=== PATIENT | male | born 1960 | race Caucasian/White ===

== ENCOUNTER 2017-04-20 11:28 | Emergency (ER) | payer OTHER ==
[~2017-04-20] VITALS: Ht 182.9 cm; Wt 104.0 kg
[~2017-04-20 11:28] MED LIST: AMLO10TA2 PO; ASPCH81X PO; CARV6.25 PO; FURO-85 PO; GUAN2TAB PO; HYDR-3419 PO; LISI40TA PO; LPT/40 PO; MELO7.5T5 PO; NITR0.4S UT; POTA20TA16 PO; PSYL55.43 PO; RANI150C4; SPIR50TA2 PO
[2017-04-20 11:30] VITALS: TEMP 36.7; Ht 182.9 cm; Wt 104.0 kg
[2017-04-20] MEDS ORDERED: HYDR25TA4 PO (12:12)
[2017-04-20] MEDS ORDERED: PSYL58.636 PO (12:12)
--- NOTE | 2017-04-20 12:40 | DIAGNOSTIC IMAGING REPORT ---
L SHOULDER MIN 2 VIEWS ROUTINE CLINICAL HISTORY: 56 years-old Male presenting with Fall, L shoulder and bilateral knee pain. TECHNIQUE: Internal rotation, external rotation, Grashey views of the left shoulder were obtained. COMPARISON: Chest x-ray from 2013. FINDINGS: Glenohumeral and acromioclavicular joints congruent. No acute fracture or malalignment. No advanced degenerative change. No radiographic soft tissue abnormality. IMPRESSION: No acute osseous injury of the left shoulder. Electronically signed by: Boogie Barrientos M.D. 04/20/2017 12:39 PM Dictated Date/Time: 04/20/2017 12:38 PM
--- NOTE | 2017-04-20 12:42 | DIAGNOSTIC IMAGING REPORT ---
L KNEE 3 VIEWS CLINICAL HISTORY: 56 years-old Male presenting with Fall, L shoulder and bilateral knee pain. TECHNIQUE: Frontal, lateral, and sunrise views of the left knee were obtained. COMPARISON: Correlation made to plain radiographs of the right knee from 04/20/2017. FINDINGS: Tricompartmental degenerative change with mild joint space loss, osteophytosis, and subchondral sclerosis in the medial compartment. Less significant osteophytosis in the lateral compartment. Pronounced osteophytosis in the patellofemoral compartment. Enthesophyte at the insertion of the quadriceps tendon. No acute fracture or malalignment. Trace knee joint effusion may be present. No patellar subluxation. IMPRESSION: Tricompartmental degenerative changes most severe in the medial compartment. Electronically signed by: Boogie Barrientos M.D. 04/20/2017 12:40 PM Dictated Date/Time: 04/20/2017 12:39 PM
--- NOTE | 2017-04-20 12:42 | DIAGNOSTIC IMAGING REPORT ---
THORACIC SPINE 3 VIEWS ROUTINE HISTORY: 56 years-old Male mid back pain acute mid back pain status post fall COMPARISON: Chest radiograph 11/01/2012 TECHNIQUE: 3 views of the thoracic spine. FINDINGS: No acute fracture or subluxation. Multilevel mild intervertebral disc space narrowing with moderate endplate spurring. Soft tissues are unremarkable. IMPRESSION: Mild intervertebral disc space narrowing without acute fracture or subluxation. The above report was generated using voice recognition software. It may contain grammatical, syntax or spelling errors. Electronically signed by: Isaías Hernández M.D. 04/20/2017 12:41 PM Dictated Date/Time: 04/20/2017 12:38 PM
--- NOTE | 2017-04-20 12:49 | DIAGNOSTIC IMAGING REPORT ---
R KNEE 3 VIEWS CLINICAL HISTORY: Fall, L shoulder and bilateral knee pain trauma. Pain. COMPARISON: None. DISCUSSION: Evidence for a total joint replacement. Good contact between prosthetic and underlying bone. Very small joint effusion. Prior anterior cruciate ligament repair. There is no evidence for soft tissue swelling. IMPRESSION: Small joint effusion. Otherwise negative exam post right knee arthroplasty. The above report was generated using voice recognition software. It may contain grammatical, syntax or spelling errors. Electronically signed by: Jet Leone M.D. 04/20/2017 12:48 PM Dictated Date/Time: 04/20/2017 12:45 PM
--- NOTE | 2017-04-20 13:22 | EMERGENCY ROOM VISIT NOTE ---
History First contact with patient: 11:39 Chief Complaint: FALL Stated Complaint: CHECK UP DUE TO FALL SENT BY WORK History of Present Illness The patient is a 56 year old male who presents to the Emergency Room with complaints of "checked up to a fall, so by work". The patient states that yesterday while at work around 2 PM he was on a grate, and accidentally stepped backwards, and fell catching himself with his left arm at the armpit, and struck his left leg. He now notes pain in those regions. He rates the overall pain as a 4/10. There is no numbness or tingling. He notes that there was a small scrape to the left anterior kramer of which she care for an his tetanus is up-to-date. Review of Systems A complete 6-point Review of Systems was discussed with the patient, with pertinent positives and negatives listed in the History of Present Illness. All remaining Review of Systems questions can be considered negative unless otherwise specified. Past Medical/Surgical History Medical Problems: (1) Hypertension Nos Surgical Problems: (1) H/O total knee replacement Social History Smoking Status: Former Smoker Current/Historical Medications Scheduled Amlodipine Besylate (Norvasc), 10 MG PO HS Atorvastatin (Lipitor), 40 MG PO DAILY Carvedilol (Coreg), 6.25 MG PO BID Guanfacine Hcl (Tenex), 2 MG PO HS Hydrochlorothiazide (Hctz), 25 MG PO DAILY Lisinopril (Prinivil), 40 MG PO HS Nitroglycerin (Nitrostat), 0.4 MG UT PRN Potassium Ext Rel (Klor-Con), 20 MEQ PO BID Psyllium (Metamucil Fiber), 1 DOSE PO HS Ranitidine Hcl (Ranitidine Hcl), 300 HS Physical Exam Vital Signs Date Time Temp Pulse Resp B/P (MAP) Pulse Ox O2 Delivery O2 Flow Rate FiO2 04/20/17 13:30 72 16 176/99 96 04/20/17 11:30 36.7 68 16 195/108 96 Physical Exam VITAL SIGNS - Vital signs and nursing notes were reviewed. Hypertensive. GENERAL -56-year-old male appearing his stated age who is in no acute distress. Communicates well with provider and answers questions appropriately. SKIN - small bruise noted underlying the left axilla, as well as on the left anterior kramer with small abrasion. NECK - Neck with FROM. No C-spine tenderness. Minimal tenderness noted at the superior thoracic spine. LUNGS - Chest wall symmetric without accessory muscle use, intercostals retractions, or central cyanosis. Normal vesicular breath sounds CTA B/L. No wheezes, rales, or rhonchi appreciated. CARDIAC - RRR with S1/S2. No murmur, rubs, or gallops appreciated. MUSCULOSKELETAL: There is tenderness in the left shoulder joint diffusely, as well as in left axilla. There is no tenderness to the left anterior chest. There is also tenderness to the left anterior kramer minimally. EXTREMITIES - patient does have lower extremity edema which she notes is chronic , without significant decreased range of motion. There is tenderness to deep palpation of bilateral heel knee. +5/5 strength noted in UE/LE bilaterally. He is neurovascularly intact in his extremities. Medical Decision & Procedures ER Provider Diagnostic Interpretation: L SHOULDER MIN 2 VIEWS ROUTINE CLINICAL HISTORY: 56 years-old Male presenting with Fall, L shoulder and bilateral knee pain. TECHNIQUE: Internal rotation, external rotation, Grashey views of the left shoulder were obtained. COMPARISON: Chest x-ray from 2012. FINDINGS: Glenohumeral and acromioclavicular joints congruent. No acute fracture or malalignment. No advanced degenerative change. No radiographic soft tissue abnormality. IMPRESSION: No acute osseous injury of the left shoulder. Electronically signed by: Boogie Barrientos M.D. 04/20/2017 12:39 PM Dictated Date/Time: 04/20/2017 12:38 PM R KNEE 3 VIEWS CLINICAL HISTORY: Fall, L shoulder and bilateral knee pain trauma. Pain. COMPARISON: None. DISCUSSION: Evidence for a total joint replacement. Good contact between prosthetic and underlying bone. Very small joint effusion. Prior anterior cruciate ligament repair. There is no evidence for soft tissue swelling. IMPRESSION: Small joint effusion. Otherwise negative exam post right knee arthroplasty. The above report was generated using voice recognition software. It may contain grammatical, syntax or spelling errors. Electronically signed by: Jet Leone M.D. 04/20/2017 12:48 PM Dictated Date/Time: 04/20/2017 12:45 PM L KNEE 3 VIEWS CLINICAL HISTORY: 56 years-old Male presenting with Fall, L shoulder and bilateral knee pain. TECHNIQUE: Frontal, lateral, and sunrise views of the left knee were obtained. COMPARISON: Correlation made to plain radiographs of the right knee from 04/20/2017. FINDINGS: Tricompartmental degenerative change with mild joint space loss, osteophytosis, and subchondral sclerosis in the medial compartment. Less significant osteophytosis in the lateral compartment. Pronounced osteophytosis in the patellofemoral compartment. Enthesophyte at the insertion of the quadriceps tendon. No acute fracture or malalignment. Trace knee joint effusion may be present. No patellar subluxation. IMPRESSION: Tricompartmental degenerative changes most severe in the medial compartment. Electronically signed by: Boogie Barrientos M.D. 04/20/2017 12:40 PM Dictated Date/Time: 04/20/2017 12:39 PM THORACIC SPINE 3 VIEWS ROUTINE HISTORY: 56 years-old Male mid back pain acute mid back pain status post fall COMPARISON: Chest radiograph 11/01/2012 TECHNIQUE: 3 views of the thoracic spine. FINDINGS: No acute fracture or subluxation. Multilevel mild intervertebral disc space narrowing with moderate endplate spurring. Soft tissues are unremarkable. IMPRESSION: Mild intervertebral disc space narrowing without acute fracture or subluxation. The above report was generated using voice recognition software. It may contain grammatical, syntax or spelling errors. Electronically signed by: Isaías Hernández M.D. 04/20/2017 12:41 PM Dictated Date/Time: 04/20/2017 12:38 PM Medical Decision Patient was seen and evaluated as above. He presents to us status post fall with bilateral medial knee pain, and abrasion to the left anterior kramer as well as left shoulder pain. X-rays were obtained as well as of the thoracic spine. These were essentially negative for acute emergent process. His left knee was wrapped with an Isaiah wrap, and the left shoulder was given a sling. He appears stable for outpatient follow-up. I suspect contusion of the sites but also noted that I could not rule out ligamentous injury of which she is to follow-up with orthopedics. He is to return with worsening. He notes he will use over- the-counter pain medication. The patient was educated upon management, had questions answered prior to discharge, and was discharged home in good condition. In the evaluation and treatment of this patient, the following differential diagnoses were considered: Shoulder Contusion, Shoulder Fracture, Shoulder Dislocation, Thoracic Outlet Syndrome, Adhesive Capsulitis, Rotator Cuff Tear, Proximal Clavicle Head Fracture, Apical Pneumonia, Pneumothorax, Hemothorax, or TB, Patellar Fracture, Tibial Plateau Fracture, Distal Femur Fracture, ACL Injury, PCL Injury, Collateral Ligament Injury, Pes Anserine Bursitis, Maisonneuve Fracture. Impression Primary Impression: Fall Additional Impressions: Contusion of multiple sites Shoulder pain, left Leg pain, left Knee pain, bilateral Departure Information Dispostion Home / Self-Care Condition GOOD Referrals Nabil Mena M.D. (PCP) Paul Owens M.D. Patient Instructions [facility] Additional Instructions You have been treated in the Emergency Department for Shoulder Pain and L knee pain For pain control, you can use the following [id number] medicines (if >12 yo): - Regular strength (325mg/tab) Tylenol (acetaminophen) 2 tabs every 4-6 hours as needed. Do not exceed 12 tablets in a 24 hour period. Avoid taking more than 3 grams (3000 mg) of Tylenol per day. This includes any other sources of acetaminophen you may take on a regular basis. - Regular strength (200 mg/tab) Advil (ibuprofen) 1-2 tabs every 4-6 hours as needed. Do not exceed a dose of 3200 mg per day. If this is a recent injury (<24 hrs), ice can be applied to the area of pain for the first 3 days to help decrease pain and inflammation. L knee, wrap daily. Keep the shoulder brace/sling in place until evaluated by Orthopedics. Continue to perform range of motion exercises several times per day to help prevent the development of a "frozen shoulder". Knee wrap for the knee. Return to the Emergency Department if your current symptoms worsen despite treatment course outlined above, or if you develop any of the following symptoms : intractable pain despite aforementioned treatment course or new onset of numbness or tingling of the arm or leg Problem Qualifiers
[2017-04-20 13:30] VITALS: BP 176/99; PULSE 72; O2SAT 96
== END 2017-04-20 13:44 | disposition home or self-care (01) ==
LOC: C.EDB 11:29 → C.EDD 13:44
DX: T14.8XXA Other injury of unspecified body region, initial encounter (principal); M25.512 Pain in left shoulder; M79.605 Pain in left leg; M25.569 Pain in unspecified knee; W19.XXXA Unspecified fall, initial encounter; Y92.89 Other specified places as the place of occurrence of the external cause; Y99.0 Civilian activity done for income or pay; I10 Essential (primary) hypertension; Z87.891 Personal history of nicotine dependence; Z96.659 Presence of unspecified artificial knee joint; Z79.899 Other long term (current) drug therapy

== ENCOUNTER 2019-11-16 10:14 | Inpatient (IN) ==
--- NOTE | 2019-10-31 15:38 | PAT Medication Instructions ---
Medication Instructions Date of Service October 31, 2019 Home Medications Medication Instructions Recorded potassium chloride 20 mEq 40 meq PO BID #360 tab 01/22/19 tablet,extended release carvedilol 12.5 mg tablet 12.5 mg PO BID #60 tab 06/25/19 atorvastatin 20 mg tablet 20 mg PO HS multivitamin with minerals 1 tab PO HS acetaminophen 500 mg tablet 500 mg PO DAILY PRN hydrochlorothiazide 25 mg tablet 25 mg PO QAM potassium chloride 20 mEq tablet,extended release 40 meq PO BID ibuprofen 200 mg tablet 200 mg PO Q8H PRN carvedilol 12.5 mg tablet 12.5 mg PO BID amlodipine 10 mg PO HS guanfacine 2 mg PO HS lisinopril 40 mg PO HS meloxicam 7.5 mg PO HS pantoprazole 40 mg PO HS psyllium husk [Metamucil] 1 tbsp PO HS tamsulosin 0.4 mg PO HS ASK your surgeon for instructions ibuprofen 200 mg tablet 200 mg PO Q8H PRN meloxicam 7.5 mg PO HS DO NOT take the morning of surgery hydrochlorothiazide 25 mg tablet 25 mg PO QAM potassium chloride 20 mEq tablet,extended release 40 meq PO BID Take morning of surgery With a small sip of water, OTHERWISE NOTHING TO EAT OR DRINK AFTER MIDNIGHT: acetaminophen 500 mg tablet 500 mg PO DAILY PRN (okay to take up to 4 hours prior to surgery if needed) carvedilol 12.5 mg tablet 12.5 mg PO BID Take evening before surgery atorvastatin 20 mg tablet 20 mg PO HS multivitamin with minerals 1 tab PO HS acetaminophen 500 mg tablet 500 mg PO DAILY PRN (if needed) potassium chloride 20 mEq tablet,extended release 40 meq PO BID carvedilol 12.5 mg tablet 12.5 mg PO BID amlodipine 10 mg PO HS guanfacine 2 mg PO HS lisinopril 40 mg PO HS pantoprazole 40 mg PO HS psyllium husk [Metamucil] 1 tbsp PO HS tamsulosin 0.4 mg PO HS Other Notes If you have any questions please call us at [phone] or [phone] or [phone] or [phone]
--- NOTE | 2019-11-02 14:51 | Anesthesiology Consultation ---
Date of Service November 02, 2019 Assessment & Plan (1) Encounter for pre-operative examination: - Per assessment on 11/01: Travel screen negative. No known COVID-19 positive contacts or current COVID-19 related symptoms. Surgeon arranging preop COVID testing. Awaiting results. - Check BSG AM DOS - Hx PONV: scope patch ordered for AM DOS Chart Review Chart Review: Acceptable Risk for Surgery (pending surgeon-ordered PCP clearance (scheduled 11/08; [facility])) and Patient seen in Pre Admission Testing Teaching & Discussion Pre-Anesthesia Teaching/Discussion Notes: Instructed NPO after midnight before surgery,except medications with 15 cc of water. Medication instructions provided according to the PAT guidelines. History Surgery Operation Date: 11/16/19 07:45 Proposed Procedures p L4-L5 Decompression and Fusion, Spinal Cord Monitoring - Miguelito Curtis DO Height/Weight Height: 5 ft 10 in Weight: 89.9 kg Allergies Allergy/AdvReac Type Severity Reaction Status Date / Time No Known Allergies Allergy Unverified 10/30/19 13:02 Medications Home Medications Medication Instructions Recorded Confirmed Last Taken atorvastatin 20 mg tablet 20 mg PO HS tab 09/13/18 10/30/19 Unknown multivitamin with minerals 1 tab PO HS tab 09/13/18 10/30/19 Unknown acetaminophen 500 mg tablet 500 mg PO DAILY PRN tab 12/13/18 10/30/19 Unknown hydrochlorothiazide 25 mg tablet 25 mg PO QAM tab 12/13/18 10/30/19 Unknown potassium chloride 20 mEq 40 meq PO BID #360 tab 01/22/19 10/30/19 Unknown tablet,extended release ibuprofen 200 mg tablet 200 mg PO Q8H PRN tab 03/16/19 10/30/19 Unknown carvedilol 12.5 mg tablet 12.5 mg PO BID #60 tab 06/25/19 10/30/19 Unknown amlodipine 10 mg PO HS 10/30/19 10/30/19 Unknown guanfacine 2 mg PO HS 10/30/19 10/30/19 Unknown lisinopril 40 mg PO HS 10/30/19 10/30/19 Unknown meloxicam 7.5 mg PO HS 10/30/19 10/30/19 Unknown pantoprazole 40 mg PO HS 10/30/19 10/30/19 Unknown psyllium husk [Metamucil] 1 tbsp PO HS 10/30/19 10/30/19 Unknown tamsulosin 0.4 mg PO HS 10/30/19 10/30/19 Unknown Past Medical History Medical History CAD (coronary artery disease) minor CAD per 2014 cardiac cath Chronic back pain Degenerative disc disease GERD without esophagitis controlled Hearing difficulty Hyperlipidemia Hypertension Kidney stones Melanoma hx (follows with dermatology) Osteoarthritis Type 2 diabetes mellitus diet controlled Exercise / Class Metabolic Activity II 4-5 Yardwork/Stairs/Walk up hill Past Family History Family History Mother Melanoma malignant Hypertension Father Cardiac disorder Myocardial infarction Hypertension Gallbladder disease Sister Graves disease Other No family history of adverse response to anesthesia Denies family history of Ovarian cancer Prostate cancer Breast cancer Colorectal cancer Past Surgical History Surgical History H/O cardiac catheterization ~2014- no stents H/O knee surgery right (multiple) History of colonoscopy History of lithotripsy History of tonsillectomy History of total knee arthroplasty right Hx of melanoma excision S/P epidural steroid injection S/P left knee arthroscopy S/P tympanoplasty right Past Anesthesia History No Hx of Anesthesia Complications (except PONV) and No Family Hx of Anesthesia Complications History of PONV History of PONV (per patient, when pretreatment used with benadryl then significant improvement in PONV) and Hx of Motion Sickness Social History Smoking Status: Former smoker Do You Dip or Chew Tobacco: No Smoking End Date: quit 2004, hx tobacco use x 5 years Hx Alcohol Use: No Hx Substance Use: No substance use type: does not use Review of Systems Patient denies chest pain, shortness of breath, dyspnea on exertion, joint pain, reflux, cough, wheezing, palpitations. Physical Exam Vital Signs VITALS BP 151/77 P 57 TEMP 98.2 SP02 98%RA RESP 16 PHYSICAL Full neck and c-spine range of motion. Full TMJ range of motion. TMD 3 finger breaths Mallampati Score 1 Dentition: mild chipiped upper front tooth Lungs: clear throughout to auscultation Cardiac: regular rate and rhythm, no murmurs noted Spine: normal Carotid arteries: negative bruit Extremities: no edema Testing Laboratory Results 11/02/19 15:21 PT 11.5 Seconds (9.0-12.0) 11/02/19 15: INR 1.1 (0.9-1.1) 11/02/19 15: APTT 27.3 Seconds (21.0-31.0) 11/02/19 15:21 Urine Color Yellow 11/02/19 15: Urine Appearance Clear (Clear) 11/02/19 15: Urine pH 5.0 (4.5-7.5) 11/02/19 15: Ur Specific [place] 1.024 (1.000-1.030) 11/02/19 15: Urine Protein Negative (Negative) 11/02/19 15: Urine Glucose (UA) Negative (Negative) 11/02/19: Urine Ketones Negative (Negative) 11/02/19: Urine Nitrite Negative (Negative) 11/02/19 15: Ur Leukocyte Esterase Negative (Negative) 11/02/19 15: Blood Type O Positive 11/02/19 15: Antibody Screen NEGATIVE 11/02/19 15:09/24/19 SODIUM 140 POTASSIUM 3.8 CHLORIDE 108 CO2 26 BUN 17 CREATININE 1.22 GLUCOSE 100 HGBA1C 6.0% Electrocardiogram Date: 11/02/19 Findings: + SB @ (49) Chest X-Ray Date: 11/02/19 Findings: + NAD Cardiac Catheterization Date: 08/16/14 The patient has minor coronary artery disease. The most significant area is the proximal LAD which has a 20% stenosis. Left ventricular function is normal.RECOMMENDATIONS: Medical management of the patient's coronary artery disease an outpatient.
[2019-11-02 15:48] LABS: Basophils # (auto) 0.02 K/uL (0-0.2); Basophils % (auto) 0.4 %; Eosinophils # (auto) 0.27 K/uL (0-0.5); Eosinophils % (auto) 5.7 %; Hematocrit (blood only) 38.5 % (42-52); Hemoglobin 13.5 g/dL (14.0-18.0); Immature Granulocytes # (auto) 0.01 K/uL (0.00-0.02); Immature Granulocytes % (auto) 0.2 %; Lymphocytes # (auto) 1.17 K/uL (1.2-3.4); Lymphocytes % (auto) 24.7 %; Mean Corpuscular Hgb Conc 35.1 g/dL (32-36); Mean Corpuscular Volume 88.3 fL (80-100); Mean Platelet Volume 10.2 fL (7.4-10.4); Monocytes # (auto) 0.39 K/uL (0.11-0.59); Monocytes % (auto) 8.2 %; Neutrophils # (auto) 2.87 K/uL (1.4-6.5); Neutrophils % (auto) 60.8 %; Platelet Count 175 K/uL (130-400); RDW Standard Deviation 41.8 fL (36.4-46.3); Red Blood Count 4.36 M/uL (4.7-6.1); White Blood Count 4.73 K/uL (4.8-10.8)
[2019-11-02 16:01] LABS: Appearance Urine Clear (Clear); Bilirubin Urine Negative (Negative); Blood Urine Negative (Negative); Color Urine Yellow; Glucose Urine UA Negative (Negative); Ketones Urine Negative (Negative); Leukocyte Esterase Urine Negative (Negative); Nitrite Urine Negative (Negative); Protein Urine Negative (Negative); Specific Gravity Urine 1.024 (1.000-1.030); Urobilinogen Urine Negative (Negative)
[2019-11-02 16:05] LABS: INR 1.1 (0.9-1.1); Partial Thromboplastin Time 27.3 Seconds (21.0-31.0); Prothrombin Time 11.5 Seconds (9.0-12.0)
--- NOTE | 2019-11-02 16:10 | XRay Report ---
TWO VIEW CHEST CLINICAL HISTORY: Preoperative examination. FINDINGS: PA and lateral chest radiographs are compared to study dated 11/01/2012. The cardiomediastin al silhouette is unremarkable. The lungs and pleural spaces are clear. There is no pneumothorax. The bony thorax appears intact. IMPRESSION: No active disease in the chest. ACT 112: Negative or not required by law. Electronically signed by: Mike Alonso M.D. 11/02/2019 4:09 PM
--- NOTE | 2019-11-02 17:59 | Electrocardiogram Report ---
Test Reason : Blood Pressure : / mmHG Vent. Rate : 049 BPM Atrial Rate : 049 BPM P-R Int : 168 ms QRS Dur : 114 ms QT Int : 440 ms P-R-T Axes : 048 049 053 degrees QTc Int : 397 ms Sinus bradycardia Otherwise normal ECG When compared with ECG of 01-NOV-2012 15:00, Aberrant conduction is no longer Present Confirmed by Tan Dent ([id number]) on 11/02/2019 5:58:54 PM Referred By: Miguelito Curtis Confirmed By:Richard Dent
[~2019-11-16 10:14] MED LIST changes: +ACETAMINOPHEN 500 MG TAB PO SCH; -AMLO10TA2 PO; -ASPCH81X PO; -CARV6.25 PO; +CEFAZOLIN 2000MG 2,000 MG/15 ML SYR IV SCH; +CeleBREX 200 MG CAP PO SCH; -FURO-85 PO; +GABAPENTIN 600 MG DOSE PO SCH; -GUAN2TAB PO; -HYDR-3419 PO; -LISI40TA PO; -LPT/40 PO; +LR 15ML/HR IV SCH; -MELO7.5T5 PO; -NITR0.4S UT; -POTA20TA16 PO; -PSYL55.43 PO; -RANI150C4; -SPIR50TA2 PO
--- NOTE | 2019-11-16 11:37 | History & Physical Bridge Note ---
Date of Service November 16, 2019 History & Physical Bridge Note I have examined the patient, reviewed the History & Physical and in the interval since the performance of the History & Physical I have noted the following changes of clinical significance: no changes noted
--- NOTE | 2019-11-16 11:38 | History & Physical Report ---
Date of Service November 16, 2019 Assessment & Plan (1) Neurogenic claudication due to lumbar spinal stenosis: Admission and Anticipated Discharge Date Admission Date: L4-L5 decompression fusion History of Present Illness Chief Complaint: Back and bilateral leg pain Primary Care Provider: Dominik Concepcion, This is a 59-year-old female presents with chronic persistent back and leg pain. After failing stents course of nonoperative care she is here for surgical invention. Allergies Allergy/AdvReac Type Severity Reaction Status Date / Time No Known Allergies Allergy Unverified 11/09/19 15:29 Home Medications Home Medications Medication Instructions Recorded Confirmed Type atorvastatin 20 mg tablet 20 mg PO HS tab 09/13/18 11/16/19 History multivitamin with minerals 1 tab PO HS tab 09/13/18 11/16/19 History acetaminophen 500 mg tablet 500 mg PO DAILY PRN tab 12/13/18 11/16/19 History hydrochlorothiazide 25 mg tablet 25 mg PO QAM tab 12/13/18 11/16/19 History potassium chloride 20 mEq 40 meq PO BID #360 tab 01/22/19 11/16/19 Rx tablet,extended release ibuprofen 200 mg tablet 200 mg PO Q8H PRN tab 03/16/19 11/16/19 History carvedilol 12.5 mg tablet 12.5 mg PO BID #60 tab 06/25/19 11/16/19 Rx amlodipine 10 mg PO HS 10/30/19 11/16/19 History guanfacine 2 mg PO HS 10/30/19 11/16/19 History lisinopril 40 mg PO HS 10/30/19 11/16/19 History meloxicam 7.5 mg PO HS 10/30/19 11/16/19 History pantoprazole 40 mg PO HS 10/30/19 11/16/19 History psyllium husk [Metamucil] 1 tbsp PO HS 10/30/19 11/16/19 History tamsulosin 0.4 mg PO HS 10/30/19 11/16/19 History Past Med/Surg History Medical History CAD (coronary artery disease) minor CAD per 2015 cardiac cath Chronic back pain Degenerative disc disease GERD without esophagitis controlled Hearing difficulty Hyperlipidemia Hypertension Kidney stones Melanoma hx (follows with dermatology) Osteoarthritis Type 2 diabetes mellitus diet controlled Surgical History H/O cardiac catheterization ~2015- no stents H/O knee surgery right (multiple) History of colonoscopy History of lithotripsy History of tonsillectomy History of total knee arthroplasty right Hx of melanoma excision S/P epidural steroid injection S/P left knee arthroscopy S/P tympanoplasty right Family History Mother Melanoma malignant Hypertension Father Cardiac disorder Myocardial infarction Hypertension Gallbladder disease Sister Graves disease Other No family history of adverse response to anesthesia Denies family history of Ovarian cancer Prostate cancer Breast cancer Colorectal cancer Social History Smoking Status: Former smoker Age Started Using Tobacco: 39; Age Quit Using Tobacco: 44; Smoking End Date: quit 2004, hx tobacco use x 5 years; Second Hand Exposure: No; Do You Dip or Chew Tobacco: No; Tobacco Cessation Education Requested by Patient: No Hx Alcohol Use: No Hx Substance Use: No Preferred Language: Croatian Communication Ability: Effective Visual Impairment: No Limitations Hearing Ability: Hard of Hearing Mushroom Press Operator Required: No Beliefs That Will Affect Care: Confucianism Confucianism Beliefs: Temple (LOCOMOTIVE ENGINEER) marital status: Current Living Situation: Spouse current occupational status: employed 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 Heart regular rate and rhythm. Lungs clear to auscultation. Results & Data ([facility]) Vital Signs (Past 12 Hours) Vital Signs Temp Pulse Resp BP Pulse Ox 11/16/19 10:54 36.7 C 48 L 20 168/95 H 98
[2019-11-16] MEDS ORDERED: FAMOTIDINE 20MG IV PUSH 20 MG/5 ML SYR IV ONE (11:40)
[2019-11-16] MEDS ORDERED: BUPIVACAINE/EPINEPHRINE 0.25% 1:200,000 30 ML VIAL ONE (12:06)
[2019-11-16] MEDS ORDERED: BACITRACIN INJ 50,000 UNIT VIAL ONE (12:06)
[2019-11-16] MEDS ORDERED: MIDAZOLAM HCL 1 MG/ML 2ML VIAL ONE (12:09)
[2019-11-16] MEDS ORDERED: fentaNYL citrate 100 MCG/2 ML VIAL ONE ×2 (12:09→14:43)
[2019-11-16] MEDS ORDERED: LIDOCAINE HCL 2% 2 ML VIAL/AMP(20MG/ML) INFIL ONE (12:52)
[2019-11-16] MEDS ORDERED: ROCURONIUM BROMIDE 10 MG/ML 5 ML VIAL IV ONE ×3 (12:52→14:01)
[2019-11-16] MEDS ORDERED: PROPOFOL IV EMULSION 10 MG/ML 20 ML VIAL IV ONE (12:52)
[2019-11-16] MEDS ORDERED: DEXAMETHASONE SOD INJ 4 MG/ML VIAL ONE (12:53)
[2019-11-16] MEDS ORDERED: DiphenhydrAMINE HCL 50 MG/ML VIAL ONE ×2 (12:53→12:54)
[2019-11-16] MEDS ORDERED: ONDANSETRON INJ 2 MG/ML 2 ML VIAL ONE ×2 (12:53→14:10)
[2019-11-16] MEDS ORDERED: METOCLOPRAMIDE HCL INJ 5 MG/ML 2 ML VIAL ONE (12:53)
[2019-11-16] MEDS ORDERED: HYDROmorphone INJ 2 MG/ML SYR/VIAL ONE (12:55)
[2019-11-16] MEDS ORDERED: KETOROLAC 30 MG/ML VIAL ONE (12:57)
[2019-11-16] MEDS ORDERED: SODIUM CHLORIDE 0.9% INJ 10 ML VIAL ONE (12:57)
[2019-11-16] MEDS ORDERED: ePHEDrine sulfate 50 MG/ML SYR ONE ×2 (13:09→14:09)
[2019-11-16] MEDS ORDERED: FLOSEAL HEMOSTATIC MATRIX 10ML TOP ONE (13:55)
--- NOTE | 2019-11-16 14:04 | Operative Report ---
Post Operative Report Pre & Post Diagnosis Operation Date: 11/16/19 11:30 Pre-Op Diagnosis: Neurogenic claudication due to lumbar spinal stenosis Spondylolisthesis L4-L5 Post-Op Diagnosis: Same I identified the patient and participated in the time-out.: Yes Procedure Operation Date: 11/16/19 11:30 Actual Procedures #1 lumbar decompression with bilateral medial facetectomies and foraminotomies L3-4 and L4-5. #2 posterior spinal fusion L4-5 per #3 placed posterior instrumentation L4-5. #4 interbody fusion L4-5 per #5 placement peek cage 13 x 26 mm at L4-5 per #6 placement locally harvested morselized autograft in the posterior lateral gutters. #7 placement infuse collagen sponge, master graft in the posterior gutters and ostial amp interbody space. Surgeon Miguelito Curtis, Control Chemist Cedric Sumner Estimated Blood Loss 150 Findings Consistent with Post-Op Diagnosis Specimens None Indications This is a 59-year-old male who presents with above-mentioned diagnosis after failing stents course of nonoperative care is here for the above-mentioned procedure. Description of Procedure Patient was met with identified informed consent obtained. Patient was then taken to the operative suite underwent intubation placed in the prone position the Sean table on top of the [place] frame. All bony prominences well-padded eyes inspected to ensure no external pressure placed upon them. This point the lumbar spine was prepped and draped in normal sterile fashion. Sharp dissection with the assistance of Bovie cautery was then performed down to and exposing the lamina and transverse processes of L4 and L5. From a caudal cephalad fashion complete laminectomy of L4 partial laminectomy of L3 was performed including bilateral medial facetectomies and foraminotomies addressing severe spinal stenosis. Pedicle screws were then placed in L4 and L5 bilaterally with a ssistance of fluoroscopy and proper sized lilli placed. By way of a trans-foramen approach on the left complete discectomy was performed endplates curetted to subcortical bleeding bone and a 13 x 26 mm peek cage filled with osteo-bone graft tapped in position. The rods were then locked into final position bilaterally. The transverse processes of L4 and L5 bur to subcortical bleeding bone. Infuse collagen sponge mass graft local autograft was placed in the posterior gutters. 15 round SALTY drain inserted. The incision was then closed with 1 Vicryl in the fascia 2-0 Vicryl subcutaneously and 4 Monocryl for final skin closure. Steri-Strip sterile dressings placed. Patient will continue PACU stable condition. Please note spinal cord monitoring was utilized at the procedure no changes noted. Lastly Cedric Sumner was present at the entire procedure involved the patient positioning complex portions of the surgery and final skin closure. I attest to the content of the Intraoperative Record and any orders documented therein. Any exceptions are noted below.
[2019-11-16] MEDS ORDERED: GLYCOPYRROLATE 0.2 MG/ML VIAL ONE (14:08)
[2019-11-16] MEDS ORDERED: NEOSTIGMINE METHYLSULFATE 1 MG/ML 10ML VIAL ONE (14:09)
--- NOTE | 2019-11-16 14:36 | Fluoroscopy Report ---
FL lumbar spine 2-3V CLINICAL HISTORY: L4-5 DECOMPRESSION/FUSION/INTERBODY COMPARISON STUDY: Lumbar spine 10/01/2019. FLUOROSCOPY TIME: 14 seconds. FINDINGS: 2 fluoroscopic spot images of the lumbar spine demonstrate posterior decompression and fusi on at L4-L5 with pedicle screws and rods. The hardware is intact. IMPRESSION: Fluoroscopy provided for posterior decompression and fusion at L4-L5 ACT 112: Negative or not required by law. Electronically signed by: Sudhir West M.D. 11/16/2019 2:35 PM
[2019-11-16] MEDS ORDERED: ONDANSETRON INJ 2 MG/ML 2 ML VIAL IV PRN ×2 (14:44→15:33)
[2019-11-16] MEDS ORDERED: fentaNYL citrate 100 MCG/2 ML VIAL IV PRN (14:44)
[2019-11-16] MEDS ORDERED: ATROPINE SULFATE 0.1 MG/ML 10ML SYR IV PRN (14:44)
[2019-11-16] MEDS ORDERED: HYDROmorphone INJ 1 MG/ML SYRINGE IV PRN ×2 (14:44→15:33)
[2019-11-16] MEDS ORDERED: ePHEDrine sulfate 50 MG/ML AMP IV PRN (14:44)
--- NOTE | 2019-11-16 14:48 | Anesthesiology Progress Note ---
Date of Service November 16, 2019 Anesthesia Post Procedure Vital Signs Vital Signs: Temp Pulse Resp BP Pulse Ox 11/16/19 10:54 36.7 C 48 L 20 168/95 H 98 Pain Intensity Lower Medial Back: Pain Intensity: 5 Transfer of Care Handoff Completed per policy Notes Mental Status: alert / awake / arousable and participated in evaluation Patient Amnestic to Procedure: Yes Nausea / Vomiting: adequately controlled Pain: adequately controlled and improving with treatment Airway Patency, RR, SpO2: stable & adequate BP & HR: stable & adequate Hydration State: stable & adequate Anesthetic Complications: no major complications apparent and Pt Satisfied with anesthetic care
[2019-11-16] MEDS ORDERED: HYDROmorphone INJ 0.5 MG/0.5 ML SYR IV PRN (15:33)
[2019-11-16] MEDS ORDERED: MAGNESIUM HYDROXIDE SUSP 30 ML UDC PO PRN (15:33)
[2019-11-16] MEDS ORDERED: METOCLOPRAMIDE HCL INJ 5 MG/ML 2 ML VIAL IV PRN (15:33)
[2019-11-16] MEDS ORDERED: DO NOT ADMINISTER FLU VACCINE PRN (15:33)
[2019-11-16] MEDS ORDERED: NALOXONE HCL 0.4 MG/1 ML VIAL/CARP IV PRN (15:33)
[2019-11-16] MEDS ORDERED: DO NOT ADMINISTER PNEUMOCOCCAL VACCINE PRN (15:33)
[2019-11-16] MEDS ORDERED: LORazepam 0.5 MG TAB PO PRN (15:33)
[2019-11-16] MEDS ORDERED: ACETAMINOPHEN 500 MG TAB PO PRN (15:33)
[2019-11-16] MEDS ORDERED: ACETAMINOPHEN 1,000 MG/100 ML VIAL IV PRN (15:33)
[2019-11-16] MEDS ORDERED: ALUMINUM/MAGNESIUM SUSP 30 ML UDC PO PRN (15:33)
[2019-11-16] MEDS ORDERED: PROMETHAZINE HCL 12.5 MG in SODIUM CHLORIDE 0.9% 50 ML IV PRN (15:33)
[2019-11-16] MEDS ORDERED: OXYCODONE HCL IR 5 MG TAB (IMMEDIATE RELEASE) PO PRN (15:33)
[2019-11-16] MEDS ORDERED: ONDANSETRON 4 MG OD TAB PO PRN (15:33)
[2019-11-16] MEDS ORDERED: FAMOTIDINE 20 MG TAB PO PRN (15:33)
[2019-11-16] MEDS ORDERED: SOD PHOSPHATE/SOD BIPHOSPHATE ENEMA 132 ML BTL PR PRN (15:33)
[2019-11-16] MEDS ORDERED: LORazepam 0.5 MG/1 ML VIAL IV PRN (15:33)
[2019-11-16] MEDS ORDERED: bisacodyL 10 MG SUPP PR PRN (15:33)
[2019-11-16] MEDS: LACTATED RINGER'S 1,000 ML IV SCH ×2 (15:57→22:14)
[2019-11-16] MEDS: Scopolamine CHECK PATCH PLACEMENT SCH ×2 (15:58→23:23)
--- NOTE | 2019-11-16 16:39 | Hospitalist Consultation ---
Date of Consultation November 16, 2019 Assessment & Plan (1) Neurogenic claudication due to lumbar spinal stenosis: Status post L3-L5 lumbar decompression fusion with Dr. Curtis on 11/15 Pain management, bowel regimen, and antiemetics as needed as per orthopedic surgery SALTY drain in place Doing well so far Follow CBC in the morning Of note, he has a history of postoperative nausea and is doing well so far with scopolamine patch in place (2) Elevated hemoglobin A1c: Hemoglobin A1c 6.0% in 09/2019 Needs continued counseling on weight loss and low carbohydrate diet Given that he had corticosteroids here preoperatively, will begin Accu-Cheks before meals and at bedtime and give NovoLog supplemental insulin as needed Follow with PCP (3) Hypokalemia: Likely secondary to hydrochlorothiazide use, takes 40 mEq of potassium chloride p.o. twice daily along with his hydrochlorothiazide Follow BMP in the morning Continue home potassium (4) Lower urinary tract symptoms (LUTS): No current issues Continue home tamsulosin Watch for urinary retention after Oliver catheter removed (5) Hypertension: Blood pressures are mildly elevated but could be secondary to some minor discomfort -Continue home medications of amlodipine 10 mg daily, carvedilol 12.5 mg p.o. twice daily, hydrochlorothiazide 25 mg once daily, lisinopril 40 mg daily, and guanfacine 2 mg p.o. nightly (6) Hyperlipidemia: No acute issues -Continue home atorvastatin (7) GERD without esophagitis: No acute issues -Continue Protonix daily (8) Nephrolithiasis: No current issues (9) DVT prophylaxis: SCDs Disposition-continued stay on medical/surgical floor Hospitalist service will continue to follow along History of Present Illness Reason for Consultation: Postoperative medical management Requesting Physician: Dr. Curtis Attending Physician: Miguelito Curtis, DO History of Present Illness This patient is a 59-year-old male with a history of DM 2, HTN, hyperlipidemia, GERD, nephrolithiasis, BPH, hypokalemia, osteoarthritis, and lumbar spinal stenosis with neurogenic claudication who is here after undergoing an L3-5 lumbar decompression and fusion today with Dr. Curtis. Hospitalist service is consulted for postoperative medical management. He reports he is currently feeling very well and tolerating sips of clears, no nausea or vomiting, no abdominal pain. Last bowel movement was this morning. Denies any chest pain or shortness of breath. Minimal pain in the back. He is able to move his legs and has sensation. He has no complaints or concerns. Allergies Allergy/AdvReac Type Severity Reaction Status Date / Time No Known Allergies Allergy Unverified 11/09/19 15:29 Home Medications Home Medications Medication Instructions Recorded Confirmed Type atorvastatin 20 mg tablet 20 mg PO HS tab 09/13/18 11/16/19 History multivitamin with minerals 1 tab PO HS tab 09/13/18 11/16/19 History acetaminophen 500 mg tablet 500 mg PO DAILY PRN tab 12/13/18 11/16/19 History hydrochlorothiazide 25 mg tablet 25 mg PO QAM tab 12/13/18 11/16/19 History potassium chloride 20 mEq 40 meq PO BID #360 tab 01/22/19 11/16/19 Rx tablet,extended release ibuprofen 200 mg tablet 200 mg PO Q8H PRN tab 03/16/19 11/16/19 History carvedilol 12.5 mg tablet 12.5 mg PO BID #60 tab 06/25/19 11/16/19 Rx amlodipine 10 mg PO HS 10/30/19 11/16/19 History guanfacine 2 mg PO HS 10/30/19 11/16/19 History lisinopril 40 mg PO HS 10/30/19 11/16/19 History meloxicam 7.5 mg PO HS 10/30/19 11/16/19 History pantoprazole 40 mg PO HS 10/30/19 11/16/19 History psyllium husk [Metamucil] 1 tbsp PO HS 10/30/19 11/16/19 History tamsulosin 0.4 mg PO HS 10/30/19 11/16/19 History Patient History Medical History (Updated 11/16/19 @ 16:45 by Meghan Resendiz MD) CAD (coronary artery disease) minor CAD per 2015 cardiac cath Chronic back pain Chronic radicular low back pain Degenerative disc disease GERD without esophagitis controlled Hearing difficulty Hemorrhoids Hyperlipidemia Hypertension Hypokalemia Kidney stones Knee pain, bilateral Leg pain, left Lower urinary tract symptoms (LUTS) Melanoma hx (follows with dermatology) Nephrolithiasis Osteoarthritis Rupture of anterior cruciate ligament of left knee Type 2 diabetes mellitus diet controlled Surgical History H/O cardiac catheterization ~2015- no stents H/O knee surgery right (multiple) History of colonoscopy History of lithotripsy History of tonsillectomy History of total knee arthroplasty right Hx of melanoma excision S/P epidural steroid injection S/P left knee arthroscopy S/P tympanoplasty right Family History Mother Melanoma malignant Hypertension Father Cardiac disorder Myocardial infarction Hypertension Gallbladder disease Sister Graves disease Other No family history of adverse response to anesthesia Denies family history of Ovarian cancer Prostate cancer Breast cancer Colorectal cancer Social History Smoking Status: Former smoker Age Started Using Tobacco: 39; Age Quit Using Tobacco: 44; Smoking End Date: quit 2004, hx tobacco use x 5 years; Second Hand Exposure: No; Do You Dip or Chew Tobacco: No; Tobacco Cessation Education Requested by Patient: No Hx Alcohol Use: No Hx Substance Use: No Preferred Language: Slovenian Communication Ability: Effective Visual Impairment: No Limitations Hearing Ability: Hard of Hearing Checker Required: No Beliefs That Will Affect Care: Holiness Holiness Beliefs: Denominational ([facility]) marital status: Current Living Situation: Spouse current occupational status: employed 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 Other Information That Helps Us Care for You: No Feels Safe at Home: Yes Safety Concerns: Feels Safe At This Time Childhood Exposure to Second-Hand Smoke: No Dental Care, Regularly: Yes Physical Activity Frequency: Does not Exercise Seatbelt Use: always Assistive Devices: Walker Review of Systems Review of Systems: All systems reviewed & are unremarkable except as noted in HPI & below Physical Exam Constitutional: WD/WN, vitals as above Eyes: + anicteric sclerae ENMT: Ears: no external ear abnormality Nose: no external nose abnormality Neck: trachea midline, no thyromegaly Respiratory: normal respiratory effort, lungs clear to auscultation Cardiovascular: RRR, no murmur, no edema Chest (Breasts): Chest: normal inspection of chest Gastrointestinal (Abdomen): normal bowel sounds, soft, nontender, no hepatosplenomegaly Musculoskeletal: Extremities: + extremities abnormal to inspection (Right knee with 2+ joint effusion, no erythema), no cyanosis and no clubbing Skin: no rashes, warm and dry (Dressing over lower back is clean dry and intact) Neurologic: moves all extremities and awake; no focal motor deficits Psychiatric: A+Ox3, euthymic affect Lymphatic: no lymphedema Results & Data Results & Data ([facility]) Vital Signs (Past 12 Hours) Vital Signs Temp Pulse Pulse Pulse Resp BP BP 11/16/19 16:33 57 L 16 155/78 H 11/16/19 15:59 36.5 C 49 L 18 162/79 H 11/16/19 15:30 36.4 C L 58 L 16 162/83 H 11/16/19 15:15 36.4 C L 48 L 12 146/69 H 11/16/19 15:05 50 L 12 140/83 11/16/19 14:55 47 L 12 152/83 H 11/16/19 14:45 52 L 12 132/87 11/16/19 14:36 36.2 C L 66 10 L 153/86 H 11/16/19 10:54 36.7 C 48 L 20 168/95 H Pulse Ox 11/16/19 16:33 100 11/16/19 15:59 100 11/16/19 15:30 98 11/16/19 15:15 97 11/16/19 15:05 95 11/16/19 14:55 100 11/16/19 14:45 99 11/16/19 14:36 100 11/16/19 10:54 98 Laboratory Results 11/16/19 11/16/19 Range/Units 14:43 10:57 POC Glucose 123 H 123 H (70-99) mg/dl Preoperative laboratory values were reviewed which revealed mildly low hemoglobin at 13.5 MCV normal ECG Additional Comments: Preoperative ECG reviewed and was normal. PG Care Time/CCT Total # of Minutes Spent Total Time Spent with Patient: Total time spent is greater than 50% in coordination of care (as documented) at patient's floor/unit and/or counseling patient: Coding Level of Care Code 85705 Inpt Consult Level 3 Diagnoses Neurogenic claudication due to lumbar spinal stenosis M48.062 Elevated hemoglobin A1c R73.09 Hypokalemia E87.6 Lower urinary tract symptoms (LUTS) R39.9 Hypertension I10 Hyperlipidemia E78.5 GERD without esophagitis K21.9 Nephrolithiasis N20.0 DVT prophylaxis Z29.9
[2019-11-16] MEDS ORDERED: DEXTROSE 50% 50 ML SYRINGE IV PRN (17:00)
[2019-11-16] MEDS ORDERED: GLUCOSE 40% GEL 15 GM TUBE PO PRN (17:00)
[2019-11-16] MEDS ORDERED: CARBOHYDRATES FOR HYPOGLYCEMIA PO PRN (17:00)
[2019-11-16] MEDS ORDERED: GLUCAGON FOR INJ 1 MG VIAL SQ PRN (17:00)
[2019-11-16] MEDS ORDERED: GLUCOSE 10 TABS/TUBE PO PRN (17:00)
[2019-11-16] MEDS: INSULIN ASPART 100 UNITS/ML 3 ML PEN SC SCH ×2 (17:57→22:06)
[2019-11-16] MEDS: KETOROLAC 30 MG/ML VIAL IV SCH ×2 (18:04→23:23)
[2019-11-16] MEDS: CEFAZOLIN 2000MG 2,000 MG/15 ML SYR IV SCH (20:38)
[2019-11-16] MEDS: AMLODIPINE BESYLATE 5 MG TAB PO SCH (22:00)
[2019-11-16] MEDS: carvediloL 12.5 MG TAB PO SCH (22:00)
[2019-11-16] MEDS: lisinopriL 40 MG TAB PO SCH (22:00)
[2019-11-16] MEDS: PSYLLIUM 58.6% POWDER PACKET PO SCH (22:00)
[2019-11-16] MEDS: MULTIVITAMIN TAB PO SCH (22:00)
[2019-11-16] MEDS: ATORVASTATIN 20 MG TAB PO SCH (22:00)
[2019-11-16] MEDS: PANTOprazole 40 MG TAB PO SCH (22:01)
[2019-11-16] MEDS: DOCUSATE SODIUM/SENNA 50/8.6MG TAB PO SCH (22:01)
[2019-11-16] MEDS: POTASSIUM CHLORIDE 20 MEQ TABCR PO SCH (22:01)
[2019-11-16] MEDS: TAMSULOSIN HCL 0.4 MG CAP PO SCH (22:01)
[2019-11-16] MEDS: GUANFACINE HCL 1 MG TAB PO SCH (22:03)
[2019-11-16] MEDS ORDERED: COUGH DROP (SUGAR FREE) LOZ 24 LOZ/1 BOX BUCCAL ONE (23:48)
[2019-11-17] MEDS: CEFAZOLIN 2000MG 2,000 MG/15 ML SYR IV SCH (05:00)
[2019-11-17] MEDS: POLYETHYLENE (MIRALAX) 17 GM PACK PO SCH ×3 (05:01→18:05)
[2019-11-17] MEDS: KETOROLAC 30 MG/ML VIAL IV SCH ×2 (05:01→12:57)
[2019-11-17] MEDS: LACTATED RINGER'S 1,000 ML IV SCH (05:25)
[2019-11-17 06:39] LABS: Hematocrit (blood only) 34.8 % (42-52); Hemoglobin 12.4 g/dL (14.0-18.0); Immature Granulocytes # (auto) 0.02 K/uL (0.00-0.02); Immature Granulocytes % (auto) 0.2 %; Lymphocytes # (auto) 0.82 K/uL (1.2-3.4); Lymphocytes % (auto) 8.4 %; Mean Corpuscular Hemoglobin 31.6 pg (25-34); Mean Corpuscular Hgb Conc 35.6 g/dL (32-36); Mean Corpuscular Volume 88.8 fL (80-100); Mean Platelet Volume 10.3 fL (7.4-10.4); Monocytes # (auto) 0.71 K/uL (0.11-0.59); Monocytes % (auto) 7.3 %; Neutrophils # (auto) 8.23 K/uL (1.4-6.5); Neutrophils % (auto) 84.1 %; Platelet Count 159 K/uL (130-400); RDW Coefficient of Variation 13.1 % (11.5-14.5); RDW Standard Deviation 42.3 fL (36.4-46.3); Red Blood Count 3.92 M/uL (4.7-6.1); White Blood Count 9.78 K/uL (4.8-10.8)
[2019-11-17 07:09] LABS: BUN Creatinine Ratio 15.4 (10-20); Calcium 8.6 mg/dl (8.5-10.1); Est GFR (African American) 97.6; Est GFR (Non-African American) 84.2; Potassium 3.8 mmol/L (3.5-5.1)
[2019-11-17] MEDS: INSULIN ASPART 100 UNITS/ML 3 ML PEN SC SCH ×4 (08:51→21:26)
[2019-11-17] MEDS: Scopolamine CHECK PATCH PLACEMENT SCH ×3 (08:53→23:16)
[2019-11-17] MEDS: POTASSIUM CHLORIDE 20 MEQ TABCR PO SCH ×2 (08:54→21:44)
[2019-11-17] MEDS: carvediloL 12.5 MG TAB PO SCH ×2 (08:54→21:35)
[2019-11-17] MEDS: hydroCHLOROthiazide 25 MG TAB PO SCH (08:54)
--- NOTE | 2019-11-17 09:05 | Hospitalist Progress Note ---
Date of Service November 17, 2019 Assessment & Plan (1) Neurogenic claudication due to lumbar spinal stenosis: * s/p L3-L5 lumbar decompression fusion with Dr. Curtis on 11/15. EBL 150cc. SALTY output 290cc. Pre-op h/h 13.5/38.5 * Pain management/bowel regimen/PT/OT per ortho * SALTY in place -- management per primary * CBC with h/h 12.4/34.8 -- acute blood loss anemia following back surgery, expected drop * Significant control of any nausea with scop patch -- continued -- did give some dry mouth but controlled with Biotin spray * CBC in AM (2) Elevated hemoglobin A1c: * Hemoglobin A1c 6.0% in 09/2019 --> has been doing well with diet as far as management but hopeful for better exercise tolerance now that back is fixed --> plans on walking halls already as he is feeling so well * Continue low carb diet * Accuchecks with almost no insulin being required -- 3 total units * Rec to follow up with PCP * Continue to monitor (3) Hypokalemia: * History of -- secondary to hydrochlorothiazide use and takes 40 mEq of potassium chloride p.o. twice daily along with his hydrochlorothiazide * Continue home potassium * K stable 3.8 * BMP in AM (4) Lower urinary tract symptoms (LUTS): * No current issues * Continue home tamsulosin * UO acceptable since removal of Harp -- 0.91ml/kg/hr (5) Hypertension: * Controlled * BP 124/63 * Continue home amlodipine 10 mg daily, carvedilol 12.5 mg p.o. twice daily, hydrochlorothiazide 25 mg once daily, lisinopril 40 mg daily, and guanfacine 2 mg p.o. nightly (6) Hyperlipidemia: * No acute issues * Continue home atorvastatin (7) GERD without esophagitis: * No acute issues * Continue Protonix daily (8) Nephrolithiasis: * No current issues (9) Acute blood loss anemia: As above with expected blood loss. follow h/h (10) DVT prophylaxis: * SCDs Thank you for allowing hospitalist service to participate in the care of Mr. John. Hospitalist service will sign off but will chart check peripherally. Please call with any questions/concerns. Admission and Anticipated Discharge Date Admission Date: November 16, 2019 Subjective Patient seen this morning. About to work with therapy. Has been able to ambulate to bathroom without walker at times. Feeling markedly improved with regards to numbness and tingling in lower extremities. Already with R knee replacement and states left knee ACL and states Dr. Owens stated he would need this replaced in the future but he wanted to address back first as he has no short term disability at work and time off absolved by him. Eating/drinking without difficulty. Passing gas but no BM as of yet. No abdominal pain. Did get something last night and miralax this morning. Has a little bit of a sore throat but controlled with the biotin spray and improving since airway from surgery. Did have a little chest congestion and cou ghed up some sputum but swallowed and not able to identify if discolored. States he has been using incentive spirometer and has felt much clearer since that time. Discussed that if able to produce sputum to make staff away. No shortness of breath, chest pain, fever, or chills reported. Only pain reported as incisional and is quite pleased with results, well controlled with only tramadol and has not required opioid for management. States he will likely be in the hospital until at least tomorrow, but likely until Tuesday. Review of Systems Review of Systems: All systems reviewed & are unremarkable except as noted in HPI & below Physical Exam Constitutional: WD/WN, vitals as above Eyes: + anicteric sclerae ENMT: Ears: no external ear abnormality Nose: no external nose abnormality Neck: trachea midline, no thyromegaly Respiratory: normal respiratory effort, lungs clear to auscultation Cardiovascular: RRR, no murmur, no edema Chest (Breasts): Chest: normal inspection of chest Gastrointestinal (Abdomen): normal bowel sounds, soft, nontender, no hepatosplenomegaly Musculoskeletal: Extremities: + extremities abnormal to inspection (Right knee with 1+ joint effusion, no erythema. ), no cyanosis and no clubbing Skin: no rashes, warm and dry (Dressing to low back with some bloody drainage noted but not through dressi) SALTY with bloody drainage Neurologic: moves all extremities and awake; no focal motor deficits Psychiatric: A+Ox3, euthymic affect Lymphatic: no lymphedema Results & Data Results & Data ([facility]) Vital Signs (Past 12 Hours) Vital Signs Temp Pulse Pulse Resp BP BP Pulse Ox 11/17/19 07:47 36.8 C 72 16 124/63 95 11/17/19 03:43 36.6 C 47 L 16 134/64 98 11/16/19 23:25 36.9 C 53 L 18 154/80 H 95 11/16/19 21:54 65 160/86 H Laboratory Results 11/17/19 11/17/19 11/17/19 Range/Units 08:25 05:52 05:52 WBC 9.78 (4.8-10.8) K/uL RBC 3.92 L (4.7-6.1) M/uL Hgb 12.4 L (14.0-18.0) g/dL Hct 34.8 L (42-52) % MCV 88.8 (80-100) fL MCH 31.6 (25-34) pg MCHC 35.6 (32-36) g/dL RDW Std Deviation 42.3 (36.4-46.3) fL RDW Coeff of Chen[place] 13.1 (11.5-14.5) % Plt Count 159 (130-400) K/uL MPV 10.3 (7.4-10.4) fL Immature Gran % (Auto) 0.2 % Neut % (Auto) 84.1 % Lymph % (Auto) 8.4 % [place] % (Auto) 7.3 % Eos % (Auto) 0.0 % Baso % (Auto) 0.0 % Neut # (Auto) 8.23 H (1.4-6.5) K/uL Lymph # (Auto) 0.82 L (1.2-3.4) K/uL [place] # (Auto) 0.71 H (0.11-0.59) K/uL Eos # (Auto) 0.00 (0-0.5) K/uL Baso # (Auto) 0.00 (0-0.2) K/uL Immature Gran # (Auto) 0.02 (0.00-0.02) K/uL Sodium 142 (136-145) mmol/L Potassium 3.8 (3.5-5.1) mmol/L Chloride 110 H (98-107) mmol/L Carbon Dioxide 24 (21-32) mmol/L Anion Gap 8.0 (3-11) BUN 15 (7-18) mg/dl Creatinine 0.99 (0.6-1.4) mg/dl Est Cr Clr Drug Dosing 85.0 ml/min Est GFR ( Amer) 97.6 Est GFR (Non-Af Amer) 84.2 BUN/Creatinine Ratio 15.4 (10-20) Glucose 162 H (70-99) mg/dl POC Glucose 133 H (70-99) mg/dl Calcium 8.6 (8.5-10.1) mg/dl 11/16/19 11/16/19 11/16/19 Range/Units 20:20 17:03 14:43 WBC (4.8-10.8) K/uL RBC (4.7-6.1) M/uL Hgb (14.0-18.0) g/dL Hct (42-52) % MCV (80-100) fL MCH (25-34) pg MCHC (32-36) g/dL RDW Std Deviation (36.4-46.3) fL RDW Coeff of Chencho (11.5-14.5) % Plt Count (130-400) K/uL MPV (7.4-10.4) fL Immature Gran % (Auto) % Neut % (Auto) % Lymph % (Auto) % [place] % (Auto) % Eos % (Auto) % Baso % (Auto) % Neut # (Auto) (1.4-6.5) K/uL Lymph # (Auto) (1.2-3.4) K/uL [place] # (Auto) (0.11-0.59) K/uL Eos # (Auto) (0-0.5) K/uL Baso # (Auto) (0-0.2) K/uL Immature Gran # (Auto) (0.00-0.02) K/uL Sodium (136-145) mmol/L Potassium (3.5-5.1) mmol/L Chloride (98-107) mmol/L Carbon Dioxide (21-32) mmol/L Anion Gap (3-11) BUN (7-18) mg/dl Creatinine (0.6-1.4) mg/dl Est Cr Clr Drug Dosing ml/min Est GFR ( Amer) Est GFR (Non-Af Amer) BUN/Creatinine Ratio (10-20) Glucose (70-99) mg/dl POC Glucose 184 H 162 H 123 H (70-99) mg/dl Calcium (8.5-10.1) mg/dl 11/16/19 Range/Units 10:57 WBC (4.8-10.8) K/uL RBC (4.7-6.1) M/uL Hgb (14.0-18.0) g/dL Hct (42-52) % MCV (80-100) fL MCH (25-34) pg MCHC (32-36) g/dL RDW Std Deviation (36.4-46.3) fL RDW Coeff of Chencho (11.5-14.5) % Plt Count (130-400) K/uL MPV (7.4-10.4) fL Immature Gran % (Auto) % Neut % (Auto) % Lymph % (Auto) % [place] % (Auto) % Eos % (Auto) % Baso % (Auto) % Neut # (Auto) (1.4-6.5) K/uL Lymph # (Auto) (1.2-3.4) K/uL [place] # (Auto) (0.11-0.59) K/uL Eos # (Auto) (0-0.5) K/uL Baso # (Auto) (0-0.2) K/uL Immature Gran # (Auto) (0.00-0.02) K/uL Sodium (136-145) mmol/L Potassium (3.5-5.1) mmol/L Chloride (98-107) mmol/L Carbon Dioxide (21-32) mmol/L Anion Gap (3-11) BUN (7-18) mg/dl Creatinine (0.6-1.4) mg/dl Est Cr Clr Drug Dosing ml/min Est GFR ( Amer) Est GFR (Non-Af Amer) BUN/Creatinine Ratio (10-20) Glucose (70-99) mg/dl POC Glucose 123 H (70-99) mg/dl Calcium (8.5-10.1) mg/dl PG Care Time/CCT Total # of Minutes Spent Total Time Spent with Patient: Total time spent is greater than 50% in coordination of care (as documented) at patient's floor/unit and/or counseling patient: Coding Level of Care Code 49870 Subseq Hosp Care Lvl 2 Diagnoses Neurogenic claudication due to lumbar spinal stenosis M48.062 Elevated hemoglobin A1c R73.09 Hypokalemia E87.6 Lower urinary tract symptoms (LUTS) R39.9 Hypertension I10 Hyperlipidemia E78.5 GERD without esophagitis K21.9 Nephrolithiasis N20.0 Acute blood loss anemia D62 DVT prophylaxis Z29.9
--- NOTE | 2019-11-17 10:48 | Orthopedic Progress Note ---
Date of Service November 17, 2019 Assessment & Plan (1) Neurogenic claudication due to lumbar spinal stenosis: Admission and Anticipated Discharge Date Admission Date: November 16, 2019 This time we will continue physical therapy monitor his SALTY operatively discharge over the next day or so. Subjective Back pain controlled leg pain markedly improved Physical Exam Physical Exam: Patient is ambulating well X strength testing. Results & Data ([facility]) Vital Signs (Past 12 Hours) Vital Signs Temp Pulse Pulse Resp BP BP Pulse Ox 11/17/19 07:47 36.8 C 72 16 124/63 95 11/17/19 03:43 36.6 C 47 L 16 134/64 98 11/16/19 23:25 36.9 C 53 L 18 154/80 H 95
[2019-11-17] MEDS ORDERED: Nursing to Pharmacy Communication SCH (18:45)
[2019-11-17] MEDS: PSYLLIUM 58.6% POWDER PACKET PO SCH (21:43)
[2019-11-17] MEDS: ATORVASTATIN 20 MG TAB PO SCH (21:44)
[2019-11-17] MEDS: PANTOprazole 40 MG TAB PO SCH (21:44)
[2019-11-17] MEDS: TAMSULOSIN HCL 0.4 MG CAP PO SCH (21:44)
[2019-11-17] MEDS: MULTIVITAMIN TAB PO SCH (21:44)
[2019-11-17] MEDS: DOCUSATE SODIUM/SENNA 50/8.6MG TAB PO SCH (21:44)
[2019-11-17] MEDS: GUANFACINE HCL 1 MG TAB PO SCH (22:10)
[2019-11-17] MEDS: AMLODIPINE BESYLATE 5 MG TAB PO SCH (22:10)
[2019-11-17] MEDS: lisinopriL 40 MG TAB PO SCH (22:10)
[2019-11-17] MEDS: TRAMADOL HCL 50 MG TABLET PO PRN (22:18)
[2019-11-18 06:24] LABS: Hematocrit (blood only) 34.9 % (42-52); Hemoglobin 11.9 g/dL (14.0-18.0); Mean Corpuscular Hemoglobin 30.9 pg (25-34); Mean Corpuscular Hgb Conc 34.1 g/dL (32-36); Mean Corpuscular Volume 90.6 fL (80-100); Mean Platelet Volume 10.4 fL (7.4-10.4); Platelet Count 146 K/uL (130-400); RDW Coefficient of Variation 13.3 % (11.5-14.5); RDW Standard Deviation 43.9 fL (36.4-46.3); Red Blood Count 3.85 M/uL (4.7-6.1)
[2019-11-18 06:52] LABS: BUN Creatinine Ratio 22.6 (10-20); Calcium 8.6 mg/dl (8.5-10.1); Creatinine Clr Calc Pharmacy 103.9 ml/min; Est GFR (African American) 114.3; Est GFR (Non-African American) 98.7; Potassium 3.6 mmol/L (3.5-5.1)
[2019-11-18] MEDS: TRAMADOL HCL 50 MG TABLET PO PRN (07:42)
[2019-11-18] MEDS: carvediloL 12.5 MG TAB PO SCH (08:19)
[2019-11-18] MEDS: hydroCHLOROthiazide 25 MG TAB PO SCH (08:23)
[2019-11-18] MEDS: POTASSIUM CHLORIDE 20 MEQ TABCR PO SCH (08:24)
[2019-11-18] MEDS: INSULIN ASPART 100 UNITS/ML 3 ML PEN SC SCH (08:25)
[2019-11-18] MEDS: Scopolamine CHECK PATCH PLACEMENT SCH (08:25)
--- NOTE | 2019-11-18 08:53 | Discharge Summary ---
Date of Service November 18, 2019 Admission HPI Per Admitting Provider This is a 59-year-old female presents with chronic persistent back and leg pain. After failing stents course of nonoperative care she is here for surgical invention. Admission Exam (Per Admitting) Constitutional WD/WN, vitals as above Eyes normal visual morgan by confrontation ENMT external ear and nose normal, oropharynx normal Neck normal visual inspection Respiratory normal respiratory effort Cardiovascular Vessels: dorsalis pedis pulses present Extremities: normal capillary refill Chest (Breasts) Chest: normal inspection of chest Gastrointestinal (Abdomen) Inspection/Auscultation: abdomen normal to inspection Musculoskeletal Extremities: extremities normal to inspection and strength 5/5 throughout Gait: normal gait Skin no rashes, warm and dry Neurologic normal touch/pain/proprioception and moves all extremities Psychiatric A+Ox3, euthymic affect Discharge Data Consultations 11/16/19 15:33 Consult Case Management - Discharge Planning Routine Consult Hospitalist Routine Procedures Performed Operation Date: 11/16/19 11:30 Actual Procedures p L4-L5 Decompression and Fusion, Spinal Cord Monitoring(Not Applicable) - Miguelito Curtis DO Hospital Course (1) Neurogenic claudication due to lumbar spinal stenosis: Patient is being discharged home on postoperative day 2. Patient has had an uneventful hospital course. Lab values have been stable. He is ambulating over 800 feet in physical therapy. Radicular leg pain that he had present preoperatively has resolved. Back pain is controlled. Lab values are stable. He has had a bowel movement. Discharge Instructions ACTIVITY RECOMMENDATIONS: SELF CARE INSTRUCTIONS AFTER THORACIC/LUMBAR FUSIONS 1. You may walk to your tolerance. It is good exercise for your legs and back. Expect some back and intermittent leg aches and pains. 2. You may perform "counter-top" level activities (make a sandwich, jr with a project, etc.). 3. No bending or lifting of more than 10 pounds or back twisting of any nature (roll like a log when turning in bed). 4. You may ride in a car for 20-30 minutes at a time. No driving until after your first visit with your doctor. 5. Frequent changes of position and restricting sitting to 30 minutes at a time will help limit the amount of back spasms and stiffness you may experience. 6. You may discontinue the use of ambulatory aids (cane, crutches, etc.) once your strength and confidence allow. 7. You may chocolate finisher operator the shower and let water strike your incision when you arrive home at least once daily. Do not take a tub bath, sit in a hot tub or go into a swimming pool until after your first recheck in the office. SPECIAL CARE INSTRUCTIONS: VERY IMPORTANT TO READ AND REVIEW A. Your surgical incision has been closed with a cosmetic suture under the skin that will dissolve in about 6 weeks. In 14 days, you can use a pair of clean scissors and cut the suture that is left outside of the skin at the ends of your incision. 1. The small skin tapes can be removed 7 days after surgery if they have not fallen off by that point. 2. You may keep the wound open to air as much as possible to promote healing after post-op day number 5 unless told otherwise by your doctor. 3. If you think the wound looks like it is becoming infected (redness or worsening drainage) and/or you are experiencing fever, chill or worsening back pain and muscle spasms, contact the office so that we may evaluate you as soon as possible. B. Complications are uncommon, but please contact us if you have any signs or symptoms of: 1. wound infection (fever higher than 102.5 degrees F, redness, separation of wound, drainage, or increasing pain from the incision) 2. blood clots in legs (pain, swelling, redness and warmth in legs) 3. urinary tract infection (fever higher than 102.5 degrees F, burning upon urination or increased frequency of urination) 4. nerve problems (inability to walk on your toes or heels, numbness, loss of bowel or bladder control) 5. any other symptoms that concern you C. Please call the office at if you have any concerns or questions about your operation or recovery. D. No smoking! Smoking drastically decreases the chance of a solid fusion. E. Do not take any anti-inflammatory medications (Indocin, Advil, Motrin, Aspirin, Naprosyn, etc.) as these may inhibit the chance of a solid fusion. Tylenol is okay to take for pain. MANAGING PAIN AFTER SPINAL SURGERY 1. Narcotic medication is intended for short-term use and will be provided for surgical pain. Surgical pain usually lasts for a period of 4-6 weeks. Narcotic medication includes Percocet, Vicodin, Darvocet, Tylenol #3 or Lortab. 2. Longer-term pain is more appropriately treated with non-narcotic medication such as Tylenol ES. 3. Muscle spasm is not appropriately treated with narcotics. Muscle relaxers such as Soma, Flexeril or Skelaxin can be used along with Tylenol ES. 4. Remember that we all live with some "aches and pains". This is not unusual or uncommon after an injury or as we get older. a. Back pain is expected and may include muscle spasms for 4 to 6 weeks after surgery. The pain should gradually improve. If the pain worsens for no apparent reason, please contact the office. b. Intermittent leg pain may also be experienced and should not be concerned about unless it worsens for no apparent reason. If so, please contact the office. 5. We will provide appropriate medication within the normal guidelines of their prescribed use. We will also be very cautious and aware of potential abuse and extended duration of patients' medication needs. a. Pain medications are for your comfort and to assist with sleep and rest so that the tissue can heal. They are not provided in order to return to normal activity and should not be used through the day. To do so or worsening pain at night can result from ongoing tissue damage and development of tolerance to the prescribed medicine. 6. Please allow 2-3 days to process refills. Prescriptions will not be mailed but must be picked up at the office. FOLLOW UP VISIT: Keep your scheduled follow-up appointment. Any questions, please call the office at . Supervising Physician Co-Signing Physician Notes Dr. Miguelito Curtis
== END 2019-11-18 12:13 | disposition home or self-care (01) | DRG 454 ==
LOC: ASU 10:14 → 3E 14:51
DX: T50.2X5A Adverse effect of carbonic-anhydrase inhibitors, benzothiadiazides and other diuretics, initial encounter; Z82.49 Family history of ischemic heart disease and other diseases of the circulatory system; E78.5 Hyperlipidemia, unspecified; E87.6 Hypokalemia; N20.0 Calculus of kidney; Z79.899 Other long term (current) drug therapy; E11.9 Type 2 diabetes mellitus without complications; Z87.891 Personal history of nicotine dependence; D62 Acute posthemorrhagic anemia; I10 Essential (primary) hypertension; N40.1 Benign prostatic hyperplasia with lower urinary tract symptoms; K21.9 Gastro-esophageal reflux disease without esophagitis; M43.16 Spondylolisthesis, lumbar region; Z79.1 Long term (current) use of non-steroidal anti-inflammatories (NSAID); M48.062 Spinal stenosis, lumbar region with neurogenic claudication

== ENCOUNTER 2020-08-09 18:40 | Inpatient (IN) ==
[2020-08-09] MEDS ORDERED: SODIUM CHLORIDE 0.9% 1000ML 1,000 ML IV ONE (19:13)
[2020-08-09] MEDS ORDERED: CEFEPIME 2,000 MG/20 ML VIAL IV STA (19:15)
--- NOTE | 2020-08-09 19:28 | Emergency Department Note ---
History of Present Illness General Chief complaint: Knee Injury/Pain Stated complaint: INFECTED RIGHT KNEE REPLACEMENT,PAINFUL Time Seen by Provider: 08/09/20 19:01 Source: patient and family ( who is at the bedside) Mode of arrival: ambulatory Limitations: no limitations History of Present Illness Maximum Pain Intensity: 8 This patient is a 60-year-old male who comes in after having fever and chills and also pain in his right knee. He has a prosthetic right knee that [place] [address] Nano gustafson. He said since his knee replacement he does have some pain and swelling there but is gotten worse over last 2 weeks after he inadvertently hit it on a bench while walking. Since he has been having shivers and temperatures he feels tingly all over at times his temperature was up to 103.2. He denies any cough or shortness of breath or respiratory symptoms. He has not had the Covid vaccine and no known Covid exposure. He has diffuse mild body aches. He has had some dysuria at times as well as nausea. No hematuria. His back hurts a little bit at times no rash no tick bites. He has diffuse joint aches. Home Medications Medication Instructions Recorded Confirmed Type atorvastatin 20 mg tablet 20 mg PO HS tab 09/13/18 08/09/20 History multivitamin with minerals 1 tab PO HS tab 09/13/18 08/09/20 History acetaminophen 500 mg tablet 500 mg PO DAILY PRN tab 12/13/18 08/09/20 History hydrochlorothiazide 25 mg tablet 25 mg PO QAM tab 12/13/18 08/09/20 History Metamucil 1 tbsp PO HS 10/30/19 08/09/20 History tramadol 50 mg PO Q6H PRN #20 tab 11/17/19 08/09/20 Rx potassium chloride 20 mEq 40 meq PO BID #360 tab 12/19/19 08/09/20 Rx tablet,extended release pantoprazole 40 mg tablet,delayed 40 mg PO HS #90 tab 03/28/20 08/09/20 Rx release amlodipine 10 mg tablet 10 mg PO HS #90 tab 04/11/20 08/09/20 Rx tadalafil 5 mg tablet 20 mg PO ONCE PRN #30 tab 05/09/20 08/09/20 Rx guanfacine 2 mg tablet 2 mg PO HS #90 tab 05/26/20 08/09/20 Rx lisinopril 40 mg tablet 40 mg PO HS #90 tab 07/07/20 08/09/20 Rx carvedilol 12.5 mg tablet 12.5 mg PO BID #180 tab 07/16/20 08/09/20 Rx Allergies Allergy/AdvReac Type Severity Reaction Status Date / Time meloxicam Allergy EYES ITCHY Unverified 08/09/20 20:31 Past Med/Surg History Medical History CAD (coronary artery disease) minor CAD per 2015 cardiac cath Chronic back pain Chronic radicular low back pain Degenerative disc disease GERD without esophagitis controlled Hearing difficulty Hemorrhoids Hyperlipidemia Hypertension Hypokalemia Kidney stones Knee pain, bilateral Leg pain, left Lower urinary tract symptoms (LUTS) Melanoma hx (follows with dermatology) Nephrolithiasis Osteoarthritis Rupture of anterior cruciate ligament of left knee Type 2 diabetes mellitus diet controlled Surgical History (Updated 08/09/20 @ 23:27 by Darell Martinez MD) H/O cardiac catheterization ~2014- no stents H/O knee surgery right (multiple) History of colonoscopy History of lithotripsy History of tonsillectomy History of total knee arthroplasty right Hx of melanoma excision S/P epidural steroid injection S/P left knee arthroscopy S/P tympanoplasty right Family History Mother Melanoma malignant Hypertension Father Cardiac disorder Myocardial infarction Hypertension Gallbladder disease Sister Graves disease Other No family history of adverse response to anesthesia Denies family history of Ovarian cancer Prostate cancer Breast cancer Colorectal cancer Social History Smoking Status: Never smoker Age Started Using Tobacco: 39; Age Quit Using Tobacco: 44; Second Hand Exposure: No; Hx Alcohol Use: No Hx Substance Use: No Preferred Language: Croatian Communication Ability: Effective Visual Impairment: No Limitations Hearing Ability: Hard of Hearing Seismograph Shooter Required: No Beliefs That Will Affect Care: Mormonism Mormonism Beliefs: Congregation ([employer] [employer]) marital status: Current Living Situation: Spouse current occupational status: employed 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 Feels Safe at Home: Yes Childhood Exposure to Second-Hand Smoke: No Dental Care, Regularly: Yes Physical Activity Frequency: Does not Exercise Seatbelt Use: always Assistive Devices: None Review of Systems A total of 10 systems reviewed and were otherwise negative Physical Exam Vital Signs Vital Signs - 24 hr 08/09/20 18:57 08/09/20 19:51 08/09/20 19:52 Temperature 38.3 C H Temperature Source Temporal Artery Scan Pulse Rate 70 70 Respiratory Rate 16 20 Respiratory Effort / Characteristics Non-Labored Spontaneous Respiratory Depth Normal Respiratory Pattern Regular Blood Pressure 147/83 H 143/79 H Blood Pressure Mean 104 100 Blood Pressure Position Sitting Pulse Oximetry 95 94 95 Oxygen Delivery Method Room Air Room Air Room Air Sepsis Recent Fever Within 48 Hours Yes Sepsis New/Unexplained Change in Mental Status Yes Sepsis Action Taken by Nursing No Action Required 08/09/20 20:00 08/09/20 20:30 08/09/20 21:00 Temperature Temperature Source Pulse Rate 68 69 63 Respiratory Rate 20 21 21 Respiratory Effort / Characteristics Respiratory Depth Respiratory Pattern Blood Pressure 151/68 H 169/84 H 165/83 H Blood Pressure Mean 95 112 110 Blood Pressure Position Pulse Oximetry 95 95 94 Oxygen Delivery Method Sepsis Recent Fever Within 48 Hours Sepsis New/Unexplained Change in Mental Status Sepsis Action Taken by Nursing 08/09/20 21:09 08/09/20 21:31 08/09/20 22:00 Temperature 38.6 C H Temperature Source Oral Pulse Rate 69 65 Respiratory Rate 13 23 Respiratory Effort / Characteristics Respiratory Depth Respiratory Pattern Blood Pressure 171/85 H 164/81 H Blood Pressure Mean 113 108 Blood Pressure Position Pulse Oximetry 96 97 Oxygen Delivery Method Sepsis Recent Fever Within 48 Hours Sepsis New/Unexplained Change in Mental Status Sepsis Action Taken by Nursing 08/09/20 22:30 08/09/20 23:00 08/09/20 23:19 Temperature 37.2 C Temperature Source Oral Pulse Rate 66 61 Respiratory Rate 20 20 Respiratory Effort / Characteristics Respiratory Depth Respiratory Pattern Blood Pressure 144/72 H 157/80 H Blood Pressure Mean 96 105 Blood Pressure Position Pulse Oximetry 95 95 Oxygen Delivery Method Sepsis Recent Fever Within 48 Hours Sepsis New/Unexplained Change in Mental Status Sepsis Action Taken by Nursing General: Well developed well nourished middle-age male who in no acute distress, breathing comfortably on room air. Normal speech HEENT: Normal cephalic atraumatic. Pupils are equal round and reactive to light. Extraocular movements are intact. Oropharynx is pink with moist mucous membranes. No swelling of the mouth lips or tongue. Neck: Supple with a midline trachea. No meningeal signs or stiffness, no JVD or bruits. No Stridor. Chest: Clear to auscultation bilaterally. No wheezes or rhonchi. No increased work of breathing. Heart: Regular rate and rhythm without murmurs or gallops. Abdomen: Soft nontender, nondistended without rebound guarding or rigidity. Extremities: No cyanosis clubbing or edema. No calf tenderness or assymetry. The right knee is swollen it is warm its not overtly red. Distally in the foot there is normal pulse and motor and sensation. Spine/Back. Non tender to palpation. No CVA tenderness Skin: Good turgor without rashes. Neurologic exam: Cranial nerves two through 12 are intact. Motor and sensation are intact and symmetrical throughout. Course Administered Medications Potassium Chloride/Sodium Chloride (Normal Saline W/20 Meq Kcl) 20 meq in 1,000 mls @ 125 mls/hr IV .Q8H BRYN Stop: 09/08/20 21:59 Last Admin: 08/09/20 22:38 Dose: 125 mls/hr Documented by: [id number] Miscellaneous Information (Daptomycin Consult Active) 1 ea N/A UD PRN PRN Reason: Consult Stop: 09/08/20 20:23 Last Admin: 08/09/20 21:08 Dose: 1 ea Documented by: [id number] Discontinued Medications Sodium Chloride (Nss 1000ml) 1,000 mls @ 999 mls/hr IV .Q1H1M ONE Stop: 08/09/20 20:13 Last Infusion: 08/09/20 20:41 Dose: 0 mls/hr Documented by: [id number] Admin: 08/09/20 19:40 Dose: 999 mls/hr Documented by: [id number] Cefepime HCl (Maxipime) 2,000 mg in 20 mls @ 5 mls/min IV NOW STA; Protocol Stop: 08/09/20 19:18 Last Admin: 08/09/20 19:40 Dose: 5 mls/min Documented by: [id number] Daptomycin 525 mg/ Syringe 10.5 mls @ 5.25 mls/min IV NOW ONE; Protocol Stop: 08/09/20 20:25 Last Admin: 08/09/20 21:08 Dose: 5.25 mls/min Documented by: [id number] Acetaminophen (Ofirmev) 1,000 mg in 100 mls @ 400 mls/hr IV NOW STA Stop: 08/09/20 21:58 Last Infusion: 08/09/20 22:08 Dose: 0 mls/hr Documented by: [id number] Admin: 08/09/20 21:53 Dose: 400 mls/hr Documented by: [id number] Potassium Chloride (Potassium Chloride Crtab 20 Meq Tabcr) 40 meq PO NOW STA Stop: 08/09/20 20:51 Last Admin: 08/09/20 21:08 Dose: 40 meq Documented by: [id number] Critical Care Time Critical Care Time: Yes Total Critical Care Time: 30 Due to the patient's concern for sepsis with fever, need for multiple antibiotics, IV fluids, extensive work-up, reassessment, consultations and discussion with the patient and the family, I have personally spent greater than 30 minutes of critical care time in the direct management of this patient. This includes bedside care, interpretation of diagnostic studies, and testing, discussion with consultants, patient, and family members, and other required patient management activities. This 30 minutes is in excess of all separately billable procedures. Medical Decision Making Differential Diagnosis Sepsis, septic joint, trauma, UTI, Covid, pneumonia, tickborne illness, electrolyte or metabolic abnormality Medical Records Attestation: I reviewed the patient's medical records. Home Medications Current Medication List: was personally reviewed by me Laboratory Data Attestation: I reviewed the patient's lab results. Result diagrams: 08/09/20 19:33 08/09/20 19:33 Lab Results 08/09/20 08/09/20 08/09/20 Range/Units 19:33 19:33 19:33 WBC 13.28 H (4.8-10.8) K/uL RBC 4.62 L (4.7-6.1) M/uL Hgb 14.5 (14.0-18.0) g/dL Hct 40.8 L (42-52) % MCV 88.3 (80-100) fL MCH 31.4 (25-34) pg MCHC 35.5 (32-36) g/dL RDW Std Deviation 42.1 (36.4-46.3) fL RDW Coeff of [place] 13.1 (11.5-14.5) % Plt Count 161 (130-400) K/uL MPV 10.5 H (7.4-10.4) fL Immature Gran % (Auto) 0.2 % Neut % (Auto) 86.9 % Lymph % (Auto) 6.6 % [place] % (Auto) 6.1 % Eos % (Auto) 0.1 % Baso % (Auto) 0.1 % Neut # (Auto) 11.55 H (1.4-6.5) K/uL Lymph # (Auto) 0.87 L (1.2-3.4) K/uL [place] # (Auto) 0.81 H (0.11-0.59) K/uL Eos # (Auto) 0.01 (0-0.5) K/uL Baso # (Auto) 0.01 (0-0.2) K/uL Immature Gran # (Auto) 0.03 H (0.00-0.02) K/uL PT 11.4 (9.0-12.0) Seconds INR 1.1 (0.9-1.1) APTT 26.0 (21.0-31.0) Seconds PTT Ratio 1.0 Sodium (136-145) mmol/L Potassium (3.5-5.1) mmol/L Chloride (98-107) mmol/L Carbon Dioxide (21-32) mmol/L Anion Gap (3-11) BUN (7-18) mg/dl Creatinine (0.6-1.4) mg/dl Est Cr Clr Drug Dosing ml/min Est GFR ( Amer) ml/min Est GFR (Non-Af Amer) ml/min BUN/Creatinine Ratio (10-20) Glucose (70-99) mg/dl Lactate (0.4-2.0) mmol/L Calcium (8.5-10.1) mg/dl Magnesium (1.8-2.4) mg/dl Total Bilirubin (0.2-1) mg/dl AST (15-37) U/L ALT (12-78) U/L Alkaline Phosphatase (45-117) U/L Troponin I (0-0.045) ng/ml C-Reactive Protein (0-0.29) mg/dl Total Protein (6.4-8.2) gm/dl Albumin (3.4-5.0) gm/dl Globulin (2.5-4.0) gm/dl Albumin/Globulin Ratio (0.9-2) Procalcitonin (0-0.5) ng/ml Urine Color Urine Appearance (Clear) Urine pH (4.5-7.5) Ur Specific [place] (1.000-1.030) Urine Protein (Negative) Urine Glucose (UA) (Negative) Urine Ketones (Negative) Urine Blood (Negative) Urine Nitrite (Negative) Urine Bilirubin (Negative) Urine Urobilinogen (Negative) Ur Leukocyte Esterase (Negative) Urine WBC (Auto) (0-5) /hpf Urine RBC (Auto) (0-4) /hpf U Hyaline Cast (Auto) (0-5) /lpf U Epithel Cells (Auto) (0-5) /lpf Urine Bacteria (Auto) (Negative) Ur Renal Epithelial Cell Urine Mucus (None Prsent) Lyme Disease IgG Ab Negative (Negative) Lyme Disease IgM Ab Negative (Negative) COVID-19 Eval Order SARS-CoV-2 (PCR) (Negative) 08/09/20 08/09/20 08/09/20 Range/Units 19:33 19:33 19:33 WBC (4.8-10.8) K/uL RBC (4.7-6.1) M/uL Hgb (14.0-18.0) g/dL Hct (42-52) % MCV (80-100) fL MCH (25-34) pg MCHC (32-36) g/dL RDW Std Deviation (36.4-46.3) fL RDW Coeff of [place] (11.5-14.5) % Plt Count (130-400) K/uL MPV (7.4-10.4) fL Immature Gran % (Auto) % Neut % (Auto) % Lymph % (Auto) % [place] % (Auto) % Eos % (Auto) % Baso % (Auto) % Neut # (Auto) (1.4-6.5) K/uL Lymph # (Auto) (1.2-3.4) K/uL [place] # (Auto) (0.11-0.59) K/uL Eos # (Auto) (0-0.5) K/uL Baso # (Auto) (0-0.2) K/uL Immature Gran # (Auto) (0.00-0.02) K/uL PT (9.0-12.0) Seconds INR (0.9-1.1) APTT (21.0-31.0) Seconds PTT Ratio Sodium 138 (136-145) mmol/L Potassium 3.0 L (3.5-5.1) mmol/L Chloride 104 (98-107) mmol/L Carbon Dioxide 27 (21-32) mmol/L Anion Gap 7.0 (3-11) BUN 15 (7-18) mg/dl Creatinine 1.09 (0.6-1.4) mg/dl Est Cr Clr Drug Dosing 89.9 ml/min Est GFR ( Amer) 86.3 ml/min Est GFR (Non-Af Amer) 74.4 ml/min BUN/Creatinine Ratio 13.7 (10-20) Glucose 132 H (70-99) mg/dl Lactate 1.4 (0.4-2.0) mmol/L Calcium 8.7 (8.5-10.1) mg/dl Magnesium 2.4 (1.8-2.4) mg/dl Total Bilirubin 1.6 H (0.2-1) mg/dl AST 9 L (15-37) U/L ALT 31 (12-78) U/L Alkaline Phosphatase 94 (45-117) U/L Troponin I < 0.015 (0-0.045) ng/ml C-Reactive Protein 20.80 H (0-0.29) mg/dl Total Protein 7.1 (6.4-8.2) gm/dl Albumin 3.4 (3.4-5.0) gm/dl Globulin 3.7 (2.5-4.0) gm/dl Albumin/Globulin Ratio 0.9 (0.9-2) Procalcitonin 0.84 H (0-0.5) ng/ml Urine Color Urine Appearance (Clear) Urine pH (4.5-7.5) Ur Specific [place] (1.000-1.030) Urine Protein (Negative) Urine Glucose (UA) (Negative) Urine Ketones (Negative) Urine Blood (Negative) Urine Nitrite (Negative) Urine Bilirubin (Negative) Urine Urobilinogen (Negative) Ur Leukocyte Esterase (Negative) Urine WBC (Auto) (0-5) /hpf Urine RBC (Auto) (0-4) /hpf U Hyaline Cast (Auto) (0-5) /lpf U Epithel Cells (Auto) (0-5) /lpf Urine Bacteria (Auto) (Negative) Ur Renal Epithelial Cell Urine Mucus (None Prsent) Lyme Disease IgG Ab (Negative) Lyme Disease IgM Ab (Negative) COVID-19 Eval Order SARS-CoV-2 (PCR) (Negative) 08/09/20 08/09/20 08/09/20 Range/Units 20:38 20:41 20:41 WBC (4.8-10.8) K/uL RBC (4.7-6.1) M/uL Hgb (14.0-18.0) g/dL Hct (42-52) % MCV (80-100) fL MCH (25-34) pg MCHC (32-36) g/dL RDW Std Deviation (36.4-46.3) fL RDW Coeff of [place] (11.5-14.5) % Plt Count (130-400) K/uL MPV (7.4-10.4) fL Immature Gran % (Auto) % Neut % (Auto) % Lymph % (Auto) % [place] % (Auto) % Eos % (Auto) % Baso % (Auto) % Neut # (Auto) (1.4-6.5) K/uL Lymph # (Auto) (1.2-3.4) K/uL [place] # (Auto) (0.11-0.59) K/uL Eos # (Auto) (0-0.5) K/uL Baso # (Auto) (0-0.2) K/uL Immature Gran # (Auto) (0.00-0.02) K/uL PT (9.0-12.0) Seconds INR (0.9-1.1) APTT (21.0-31.0) Seconds PTT Ratio Sodium (136-145) mmol/L Potassium (3.5-5.1) mmol/L Chloride (98-107) mmol/L Carbon Dioxide (21-32) mmol/L Anion Gap (3-11) BUN (7-18) mg/dl Creatinine (0.6-1.4) mg/dl Est Cr Clr Drug Dosing ml/min Est GFR ( Amer) ml/min Est GFR (Non-Af Amer) ml/min BUN/Creatinine Ratio (10-20) Glucose (70-99) mg/dl Lactate (0.4-2.0) mmol/L Calcium (8.5-10.1) mg/dl Magnesium (1.8-2.4) mg/dl Total Bilirubin (0.2-1) mg/dl AST (15-37) U/L ALT (12-78) U/L Alkaline Phosphatase (45-117) U/L Troponin I (0-0.045) ng/ml C-Reactive Protein (0-0.29) mg/dl Total Protein (6.4-8.2) gm/dl Albumin (3.4-5.0) gm/dl Globulin (2.5-4.0) gm/dl Albumin/Globulin Ratio (0.9-2) Procalcitonin (0-0.5) ng/ml Urine Color Dark Yellow Urine Appearance Clear (Clear) Urine pH 6.5 (4.5-7.5) Ur Specific [place] 1.019 (1.000-1.030) Urine Protein 1+ H (Negative) Urine Glucose (UA) Negative (Negative) Urine Ketones Trace H (Negative) Urine Blood Negative (Negative) Urine Nitrite Negative (Negative) Urine Bilirubin 1+ H (Negative) Urine Urobilinogen Negative (Negative) Ur Leukocyte Esterase Negative (Negative) Urine WBC (Auto) 10-30 H (0-5) /hpf Urine RBC (Auto) 0-4 (0-4) /hpf U Hyaline Cast (Auto) 0 (0-5) /lpf U Epithel Cells (Auto) >30 H (0-5) /lpf Urine Bacteria (Auto) Negative (Negative) Ur Renal Epithelial Cell Not Reportable Urine Mucus Present A (None Prsent) Lyme Disease IgG Ab (Negative) Lyme Disease IgM Ab (Negative) COVID-19 Eval Order Covid19 at [facility] SARS-CoV-2 (PCR) NEGATIVE (Negative) Imaging Data Attestation: I personally reviewed and interpreted this imaging study as fo llows: My Impression: Chest x-rayno acute infiltrate, failure, pneumothorax seen Radiologist's Impression: Chest X-Ray 08/09/20 19:13 XR chest 1V portable CLINICAL HISTORY: SEPSIS COMPARISON STUDY: November 02, 2019 FINDINGS: No pneumothorax. No pleural effusion. No large infiltrates or consolidative lesions are seen. Cardiomediastinal silhouette is within normal limits in size. No significant pulmonary vascular congestion.. Osseous structures: unremarkable IMPRESSION: 1. No acute pulmonary process. ACT 112: Negative or not required by law. The above report was generated using voice recognition software. It may contain grammatical, syntax or spelling errors. Electronically signed by: Sunni Preston DO 08/09/2020 9:04 PM Knee X-Ray 08/09/20 19:13 XR knee RT 1 or 2V routine CLINICAL HISTORY: rt knee pain COMPARISON: April 20, 2017 DISCUSSION: No acute fracture or dislocation. Metallic prosthetic right knee joint is again seen. Osseous structures are diffusely demineralized. Soft tissue edema is seen. IMPRESSION: No acute fracture or dislocation. ACT 112: Negative or not required by law. The above report was generated using voice recognition software. It may contain grammatical, syntax or spelling errors. Electronically signed by: Sunni Preston DO 08/09/2020 8:57 PM ECG Data Attestation: I personally reviewed and interpreted this ECG as follows: Indication: + other (Sepsis) Rate (beats per minute): 68 Rhythm: + normal sinus ECG Intervals/blocks: + Normal QRS, + Normal QT and + Normal IA ECG [place]: + Normal ECG ST segments: + Normal ST segments ECG Findings: no PACs and no PVCs Comparison ECG Date: from (11/02/19) Change: no significant change MDM Narrative This patient comes in as described above. He was placed on a athletic monitor in room A2. He does have a temperature of 38.3. I am concerned with his chills and fever about sepsis. Most likely source is the knee as this is his main com plaint.. He could also have other source of his septic sepsis which would include Covid, tickborne illness, pneumonia ,or UTI. He does not appear to be toxic and is nothing suggest meningitis or encephalitis. His abdomen is benign and nontender is no flank tenderness when I tap on him. IV access was established and he was hydrated with an IV fluid bolus. He was given empiric cefepime 2 g IV blood work was obtained, I did an x-ray of the chest of the knee urinalysis and cultures were obtained. I also added daptomycin to cover the possibility of MRSA given the concern for septic knee. His white count is mildly elevated. Lactic acid is not elevated. CRP is elevated. He has no significant electrolyte or metabolic abnormalities chest x-ray does not show pneumonia or pneumothorax. Tickborne studies thus far are negative with some of them pending. Knee x-ray does not show any bony abnormalities I do think he has some soft tissue swelling and likely an effusion. I did discuss case with Dr. Kennedy who will see him in the hospital. I did discuss the case with Dr. Sarabia and the [facility] team will be admitting him for IV antibiotics, orthopedic consultation, and further treatment and evaluation. Continuous cardiac monitoring: Orders placed in EMR for continuous cardiac monitoring. Upon my interpretation the patient was noted to be in normal sinus rhythm with a pulse of 70. Impression & Plan Sepsis, Lab test negative for COVID-19 virus, History of right knee joint replacement, Knee pain, right Discharge Plan Visit Data Chief Complaint: Knee Injury/Pain Stated Complaint: INFECTED RIGHT KNEE REPLACEMENT,PAINFUL ED Provider: Darell Martinez Discharge Problem: Sepsis, Lab test negative for COVID-19 virus, History of right knee joint replacement, Knee pain, right Forms Stand Alone Forms: My [facility] Prescriptions Prescriptions: No Action potassium chloride 20 mEq tablet extended release 40 meq PO BID Qty: 360 RF: 1 pantoprazole 40 mg tablet,delayed release (DR/EC) 40 mg PO HS Qty: 90 RF: 1 amlodipine 10 mg tablet 10 mg PO HS Qty: 90 RF: 1 guanfacine 2 mg tablet 2 mg PO HS Qty: 90 RF: 1 lisinopril 40 mg tablet 40 mg PO HS Qty: 90 RF: 1 carvedilol 12.5 mg tablet 12.5 mg PO BID Qty: 180 RF: 1 atorvastatin 20 mg tablet 20 mg PO HS RF: 0 tadalafil 5 mg tablet 20 mg PO ONCE PRN (Reason: sexual activity) Qty: 30 RF: 11 multivitamin with minerals tablet 1 tab PO HS RF: 0 acetaminophen 500 mg tablet 500 mg PO DAILY PRN (Reason: Pain) RF: 0 hydrochlorothiazide 25 mg tablet 25 mg PO QAM RF: 0 Metamucil 3.4 gram/5.4 gram Powder 1 tbsp PO HS RF: 0 tramadol 50 mg tablet 50 mg PO Q6H PRN (Reason: pain, moderate) Qty: 20 RF: 0 Discharge Problem: Sepsis Qualifiers: Sepsis type: sepsis due to unspecified organism Sepsis acute organ dysfunction status: unspecified Qualified Code(s): A41.9 - Sepsis, unspecified organism Knee pain, right Qualifiers: Chronicity: acute Qualified Code(s): M25.561 - Pain in right knee
[2020-08-09 19:49] LABS: Basophils # (auto) 0.01 K/uL (0-0.2); Basophils % (auto) 0.1 %; Eosinophils # (auto) 0.01 K/uL (0-0.5); Eosinophils % (auto) 0.1 %; Hematocrit (blood only) 40.8 % (42-52); Hemoglobin 14.5 g/dL (14.0-18.0); Immature Granulocytes # (auto) 0.03 K/uL (0.00-0.02); Immature Granulocytes % (auto) 0.2 %; Lymphocytes # (auto) 0.87 K/uL (1.2-3.4); Lymphocytes % (auto) 6.6 %; Mean Corpuscular Hemoglobin 31.4 pg (25-34); Mean Corpuscular Hgb Conc 35.5 g/dL (32-36); Mean Corpuscular Volume 88.3 fL (80-100); Mean Platelet Volume 10.5 fL (7.4-10.4); Monocytes # (auto) 0.81 K/uL (0.11-0.59); Monocytes % (auto) 6.1 %; Neutrophils # (auto) 11.55 K/uL (1.4-6.5); Neutrophils % (auto) 86.9 %; Platelet Count 161 K/uL (130-400); RDW Coefficient of Variation 13.1 % (11.5-14.5); RDW Standard Deviation 42.1 fL (36.4-46.3); Red Blood Count 4.62 M/uL (4.7-6.1); White Blood Count 13.28 K/uL (4.8-10.8)
[2020-08-09 20:02] LABS: INR 1.1 (0.9-1.1); Prothrombin Time 11.4 Seconds (9.0-12.0)
[2020-08-09 20:07] LABS: Alanine Aminotransferase 31 U/L (12-78); Albumin Level 3.4 gm/dl (3.4-5.0); Aspartate Aminotransferase 9 U/L (15-37); BUN Creatinine Ratio 13.7 (10-20); Blood Urea Nitrogen 15 mg/dl (7-18); Calcium 8.7 mg/dl (8.5-10.1); Carbon Dioxide 27 mmol/L (21-32); Chloride 104 mmol/L (98-107); Creatinine Clr Calc Pharmacy 89.9 ml/min; Est GFR (African American) 86.3 ml/min; Est GFR (Non-African American) 74.4 ml/min; Glucose 132 mg/dl (70-99); Magnesium 2.4 mg/dl (1.8-2.4); Sodium 138 mmol/L (136-145)
[2020-08-09 20:12] LABS: Albumin Globulin Ratio 0.9 (0.9-2); Alkaline Phosphatase 94 U/L (45-117); Bilirubin,Total 1.6 mg/dl (0.2-1); Globulin 3.7 gm/dl (2.5-4.0); Total Protein 7.1 gm/dl (6.4-8.2); Troponin I < 0.015 ng/ml (0-0.045)
[2020-08-09] MEDS ORDERED: DAPTOmycin 525 MG in SYRINGE 0 ML IV ONE (20:24)
[2020-08-09 20:37] LABS: Lyme Ab IgG w/WB Rflx Negative (Negative); Lyme Ab IgM w/WB Rflx Negative (Negative)
[2020-08-09] MEDS ORDERED: POTASSIUM CHLORIDE CRTAB 20 MEQ TABCR PO STA (20:50)
--- NOTE | 2020-08-09 20:58 | XRay Report ---
XR knee RT 1 or 2V routine CLINICAL HISTORY: rt knee pain COMPARISON: April 20, 2017 DISCUSSION: No acute fracture or dislocation. Metallic prosthetic right knee joint is again seen. Osseous structures are diffusely demineralized. Soft tissue edema is seen. IMPRESSION: No acute fracture or dislocation. ACT 112: Negative or not required by law. The above report was generated using voice recognition software. It may contain grammatical, syntax o r spelling errors. Electronically signed by: Sunni Preston DO 08/09/2020 8:57 PM
--- NOTE | 2020-08-09 21:06 | XRay Report ---
XR chest 1V portable CLINICAL HISTORY: SEPSIS COMPARISON STUDY: November 02, 2019 FINDINGS: No pneumothorax. No pleural effusion. No large infiltrates or consolidative lesions are seen. Cardiomediastinal silhouette is within normal limits in size. No significant pulmonary vascular congestion.. Osseous structures: unremarkable IMPRESSION: 1. No acute pulmonary process. ACT 112: Negative or not required by law. The above report was generated using voice recognition software. It may contain grammatical, syntax o r spelling errors. Electronically signed by: Sunni Preston DO 08/09/2020 9:04 PM
[2020-08-09] MEDS ORDERED: ACETAMINOPHEN 1,000 MG/100 ML VIAL IV STA (21:44)
[2020-08-09] MEDS ORDERED: POLYETHYLENE (MIRALAX) 17 GM PACK PO PRN (21:46)
[2020-08-09] MEDS ORDERED: ONDANSETRON INJ 2 MG/ML 2 ML VIAL IV PRN (21:46)
[2020-08-09 21:54] LABS: Appearance Urine Clear (Clear); Bacteria Urine Automated Negative (Negative); Blood Urine Negative (Negative); Color Urine Dark Yellow; Epithelial Cell Urine Auto >30 /lpf (0-5); Glucose Urine UA Negative (Negative); Ketones Urine Trace (Negative); Leukocyte Esterase Urine Negative (Negative); Nitrite Urine Negative (Negative); Protein Urine 1+ (Negative); RBC Urine Automated 0-4 /hpf (0-4); Specific Gravity Urine 1.019 (1.000-1.030); Urobilinogen Urine Negative (Negative); pH Urine 6.5 (4.5-7.5)
[2020-08-09 22:18] LABS: Bilirubin Urine 1+ (Negative)
[2020-08-09 22:19] LABS: Mucus Urine Present (None Prsent)
[2020-08-09 22:20] LABS: Cast Urine Automated 0 /lpf (0-5)
[2020-08-09] MEDS: NSS + 20MEQ KCL 20 MEQ/1,000 ML BAG IV SCH (22:38)
--- NOTE | 2020-08-09 22:50 | History & Physical Report ---
Date of Service August 09, 2020 Assessment & Plan (1) Sepsis: Mr. John is a 60 yo gentleman with a PMHx of a right knee replacement who presented with fevers/chills and right knee pain and swelling. - SIRS criteria met on admission (temp > 38, WBC > 12k) - Lactate normal at 1.4 - suspected source: right prosthetic joint infection. Blood cultures pending. UA neg for LE, nitrates and bacteria. CXR without signs of consolidation. No evidence of cellulitis on exam. No diarrhea suggestive of gastritis. - orthopedic surgery was consulted when patient was in ED -- they requested he be admitted to medicine service. Although initiating antibiotics before a culture could be obtained may interfere with capturing identify of pathogen, patient is septic and at risk for clinical deterioration. For this reason, antibiotics were started empirically. - Dapto + Cefepime given in ED -- changed to Vanco + cefepime on admission as patient's renal function is normal - formal orthopedics consult placed - patient made NPO after midnight with anticipation he will be taken to OR for washing/spacer placement or exchange of hardware. - continue IV fluids - trend CBC (2) Knee pain, right: - XR knee showing soft tissue edema, but no fractures or dislocations - thought to be secondary to prosethic joint infection as above - treat with IV vanco + cefepime - Lyme testing negative. Anaplasma DNA pending. I will order anaplasmosis smear to complete tick borne work up. - orthopedics consult placed (3) History of right knee joint replacement: - right sided - plan as above (4) Hypokalemia: - K at 3.0 on admission - etiology is uncertain - patient is on an FRANCESCA inhibitor, which would tend to increase K levels - 40meq Kcl added to IVF - trend BMP (5) Leukocytosis: - WBC elevated to 13 on admission - Procal and CRP elevated - negative lyme testing. COVID neg. UA benign. No evidence of PNA on CXR. - suspect source is from R prosthetic joint infectio - abx as above - trend CBC (6) Type 2 diabetes mellitus: - diet controlled - recommend Carb consistent diet when no longer NPO (7) Hypertension: - continue home medication regimen (8) Hyperlipidemia: - continue home dose statin (9) GERD without esophagitis: - continue home dose PPI DVT ppx: Lovenox SQ Diet: NPO in anticipation of procedure Dispo: Med surg Code: DNR/DNI, I discussed with patient History of Present Illness Primary Care Provider: Dominik Concepcion DO Mr. John is a 60 yo gentleman who presents for evaluation of R knee pain, stiffness and swelling of two days duration. Of note, he [place] R [place] [address] [place] [facility] [place] He first noticed increased stiffness of the R knee when driving home from work evening. The knee became progressively painful, causing him to drive with his left foot. When he got home, he realized the R knee was quite swollen; it was warm to the touch, but did not turn red in color. He iced it and took Tylenol, however he ultimately came in for evaluation as his symptoms have not improved since onset. He denies any recent trauma to the R knee - although several weeks ago he does recall hitting it off his workshop bench. He reports fever and chills, generalized weakness, a diminished appetite, some n umbness and tingling of the R lower extremity, and some burning with urination. No cough, nasal congestion, nausea/vomiting, diarrhea. He denies any sick contacts. No tick bites this spring or summer. He has not had the COVID 19 vaccine. In the ED he was febrile to 38.6. His WBC was mildly elevated to 13, CRP was 20, Procal was mildly elevated 0.84. Lyme neg. Anaplasma DNA pending. UA ordered. CXR was negative. XR knee showing soft tissue edema, but no fractures or dislocations. He was given a dose of IV cefepime and Daptomycin along with 1liter of NSS + 40meQ KCl. Orthopedics were contacted and requested the patient be admitted to the medicine team. Allergies Allergy/AdvReac Type Severity Reaction Status Date / Time meloxicam Allergy EYES ITCHY Unverified 08/09/20 20:31 Home Medications Medication Instructions Recorded Confirmed Type atorvastatin 20 mg tablet 20 mg PO HS tab 09/13/18 08/09/20 History multivitamin with minerals 1 tab PO HS tab 09/13/18 08/09/20 History acetaminophen 500 mg tablet 500 mg PO DAILY PRN tab 12/13/18 08/09/20 History hydrochlorothiazide 25 mg tablet 25 mg PO QAM tab 12/13/18 08/09/20 History Metamucil 1 tbsp PO HS 10/30/19 08/09/20 History tramadol 50 mg PO Q6H PRN #20 tab 11/17/19 08/09/20 Rx potassium chloride 20 mEq 40 meq PO BID #360 tab 12/19/19 08/09/20 Rx tablet,extended release pantoprazole 40 mg tablet,delayed 40 mg PO HS #90 tab 03/28/20 08/09/20 Rx release amlodipine 10 mg tablet 10 mg PO HS #90 tab 04/11/20 08/09/20 Rx tadalafil 5 mg tablet 20 mg PO ONCE PRN #30 tab 05/09/20 08/09/20 Rx guanfacine 2 mg tablet 2 mg PO HS #90 tab 05/26/20 08/09/20 Rx lisinopril 40 mg tablet 40 mg PO HS #90 tab 07/07/20 08/09/20 Rx carvedilol 12.5 mg tablet 12.5 mg PO BID #180 tab 07/16/20 08/09/20 Rx Past Med/Surg History Medical History CAD (coronary artery disease) minor CAD per 2015 cardiac cath Chronic back pain Chronic radicular low back pain Degenerative disc disease GERD without esophagitis controlled Hearing difficulty Hemorrhoids Hyperlipidemia Hypertension Hypokalemia Kidney stones Knee pain, bilateral Leg pain, left Lower urinary tract symptoms (LUTS) Melanoma hx (follows with dermatology) Nephrolithiasis Osteoarthritis Rupture of anterior cruciate ligament of left knee Type 2 diabetes mellitus diet controlled Surgical History (Updated 08/09/20 @ 23:27 by Darell Martinez MD) H/O cardiac catheterization ~2014- no stents H/O knee surgery right (multiple) History of colonoscopy History of lithotripsy History of tonsillectomy History of total knee arthroplasty right Hx of melanoma excision S/P epidural steroid injection S/P left knee arthroscopy S/P tympanoplasty right Family History Mother Melanoma malignant Hypertension Father Cardiac disorder Myocardial infarction Hypertension Gallbladder disease Sister Graves disease Other No family history of adverse response to anesthesia Denies family history of Ovarian cancer Prostate cancer Breast cancer Colorectal cancer Social History Smoking Status: Former smoker Age Started Using Tobacco: 39; Age Quit Using Tobacco: 44; Second Hand Exposure: No; Hx Alcohol Use: No Hx Substance Use: No Preferred Language: Malay Communication Ability: Effective Visual Impairment: No Limitations Hearing Ability: Hard of Hearing Clay Worker Required: No Beliefs That Will Affect Care: None marital status: Current Living Situation: Spouse current occupational status: employed 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 Feels Safe at Home: Yes Safety Concerns: Feels Safe At This Time Childhood Exposure to Second-Hand Smoke: No Dental Care, Regularly: Yes Physical Activity Frequency: Does not Exercise Seatbelt Use: always Assistive Devices: None Review of Systems Review of Systems: All systems reviewed & are unremarkable except as noted in HPI & below Physical Exam Constitutional: WD/WN, vitals as above + acute distress (mild secondary to pain) and cooperative Eyes: + anicteric sclerae ENMT: external ear and nose normal, oropharynx normal Neck: trachea midline, no thyromegaly Respiratory: normal respiratory effort, lungs clear to auscultation Cardiovascular: RRR, no murmur, no edema Heart Sounds: normal S1 and normal S2 Gastrointestinal (Abdomen): normal bowel sounds, soft, nontender, no hepatosplenomegaly Musculoskeletal: Knee: + effusion (+ R knee. R knee warm to the touch); no skin erythema Skin: no rashes, warm and dry Neurologic: Motor/Sensory: no sensory deficit Psychiatric: A+Ox3, euthymic affect Results & Data Results & Data ([facility]) Vital Signs (Past 12 Hours) Vital Signs Temp Pulse Resp BP Pulse Ox 08/09/20 22:00 65 23 164/81 H 97 08/09/20 21:31 69 13 171/85 H 96 08/09/20 21:09 38.6 C H 08/09/20 21:00 63 21 165/83 H 94 08/09/20 20:30 69 21 169/84 H 95 08/09/20 20:00 68 20 151/68 H 95 08/09/20 19:52 70 20 143/79 H 95 08/09/20 19:51 94 08/09/20 18:57 38.3 C H 70 16 147/83 H 95 Supervising Physician Co-Signing Physician Notes Attending addendum: I have physically seen this patient, have supervised the medical residents activities, and agree with the H&P unless as otherwise noted. Assessment and Plan: Sepsis due to right knee prosthetic joint infection- NPO IV fluids Vancomycin IV and cefepime IV Follow blood culture and sensitivity Lyme test negative, anaplasmosis pending Orthopedic surgery aware and will see patient in a.m. Hypokalemia- Placed on NSS plus KCl 40 mEq at 100 mils per hour. Recheck laboratories in a.m. Diabetes mellitus- Diet controlled Patient Accu-Cheks before meals and at bedtime with NovoLog coverage per scale Hypertension- Continue amlodipine, carvedilol, lisinopril and potassium chloride with hold parameters. Hold HCTZ due to hypokalemia Remaining orders and notations as noted Resident Activity Tracking Resident Involvement: Resident Care Provided Care Provided: Adult Hospital Medicine (1) Sepsis Sepsis acute organ dysfunction status: unspecified Sepsis type: sepsis due to unspecified organism Qualified Code(s): A41.9 - Sepsis, unspecified organism (2) Knee pain, right Chronicity: acute Qualified Code(s): M25.561 - Pain in right knee
[2020-08-10] MEDS ORDERED: MoRPHine SULFATE 2 MG/ML CARP IV PRN (00:11)
[2020-08-10] MEDS ORDERED: VANCOMYCIN CONSULT ACTIVE PRN ×2 (00:11)
[2020-08-10 00:48] LABS: RBC Morphology Unremarkable
[2020-08-10] MEDS: ACETAMINOPHEN 1,000 MG/100 ML VIAL IV PRN ×3 (01:05→17:52)
[2020-08-10] MEDS: CEFEPIME 2,000 MG in SYRINGE 0 ML IV SCH ×3 (05:50→21:50)
[2020-08-10] MEDS: NSS + 20MEQ KCL 20 MEQ/1,000 ML BAG IV SCH ×3 (06:20→21:50)
[2020-08-10 07:04] LABS: Basophils # (auto) 0.01 K/uL (0-0.2); Basophils % (auto) 0.1 %; Eosinophils # (auto) 0.03 K/uL (0-0.5); Eosinophils % (auto) 0.3 %; Hematocrit (blood only) 36.8 % (42-52); Hemoglobin 12.9 g/dL (14.0-18.0); Immature Granulocytes # (auto) 0.02 K/uL (0.00-0.02); Immature Granulocytes % (auto) 0.2 %; Lymphocytes # (auto) 0.59 K/uL (1.2-3.4); Lymphocytes % (auto) 5.2 %; Mean Corpuscular Hemoglobin 31.1 pg (25-34); Mean Corpuscular Hgb Conc 35.1 g/dL (32-36); Mean Corpuscular Volume 88.7 fL (80-100); Mean Platelet Volume 10.2 fL (7.4-10.4); Monocytes # (auto) 1.04 K/uL (0.11-0.59); Monocytes % (auto) 9.2 %; Neutrophils # (auto) 9.61 K/uL (1.4-6.5); Platelet Count 130 K/uL (130-400); RDW Standard Deviation 42.3 fL (36.4-46.3); Red Blood Count 4.15 M/uL (4.7-6.1)
[2020-08-10 07:51] LABS: BUN Creatinine Ratio 17.7 (10-20); Calcium 7.9 mg/dl (8.5-10.1); Creatinine Clr Calc Pharmacy 139.9 ml/min; Est GFR (African American) 120.6 ml/min
[2020-08-10] MEDS ORDERED: VANCOMYCIN HCL 2,000 MG in SODIUM CHLORIDE 0.9% 500 ML IV ONE (08:00)
[2020-08-10] MEDS: carvediloL 12.5 MG TAB PO SCH ×2 (08:21→20:29)
[2020-08-10] MEDS: POTASSIUM CHLORIDE CRTAB 20 MEQ TABCR PO SCH ×2 (08:21→20:28)
[2020-08-10] MEDS: hydroCHLOROthiazide 25 MG TAB PO SCH (08:21)
--- NOTE | 2020-08-10 08:24 | Pharmacy Report ---
Pharmacy Abx Initial Consult - Date of Service August 10, 2020 - Pharmacy Dosing Scope Date of Consult: 08.10.20 Consultation requested by: Dr. Koroma Pharmacy is consulted to initiate vancomycin IV dosing therapy, order appropriate labs and adjust drug dose/frequency. - Subjective The patient is a 60 year old M admitted on 08/09/20 22:34. - Objective Height: 5 ft 11 in Weight: 102 kg Vital Signs (Past 12hrs): Vital Signs Temp Pulse Pulse Resp BP BP Pulse Ox 08/10/20 07:54 37.5 C 70 16 163/81 H 94 08/10/20 07:45 69 08/10/20 02:41 37.5 C 66 18 144/62 H 94 08/10/20 00:42 65 08/10/20 00:41 36.9 C 67 16 141/70 H 94 08/09/20 23:30 62 23 151/77 H 95 08/09/20 23:19 37.2 C 08/09/20 23:00 61 20 157/80 H 95 08/09/20 22:30 66 20 144/72 H 95 08/09/20 22:00 65 23 164/81 H 97 08/09/20 21:31 69 13 171/85 H 96 08/09/20 21:09 38.6 C H 08/09/20 21:00 63 21 165/83 H 94 08/09/20 20:30 69 21 169/84 H 95 Lab Results (24hrs): Laboratory Tests (24 Hours) 08/10/20 08/10/20 08/09/20 06:51 06:51 19:33 WBC 11.30 H Neut # (Auto) 9.61 H Creatinine 0.70 D Est Cr Clr Drug Dosing 139.9 C-Reactive Protein Procalcitonin 0.84 H 08/09/20 08/09/20 19:33 19:33 WBC 13.28 H Neut # (Auto) 11.55 H Creatinine 1.09 Est Cr Clr Drug Dosing 89.9 C-Reactive Protein 20.80 H Procalcitonin Micro Results: 08/09/20 20:38 Urine Culture - Pending Urine,Clean Catch 08/09/20 19:46 Aerobic Blood Culture - Pending Blood Anaerobic Blood Culture - Pending 08/09/20 19:33 Aerobic Blood Culture - Pending Blood Anaerobic Blood Culture - Pending - Assessment & Plan Assessment * 60 year old M w/ prosthetic joint infection. * Ortho consulted. Plans for washing/spacer placement or exchange of hardware noted. * Urine and blood cultures pending at this time. * Empirically placed on vancomycin and cefepime therapy. Plan Vancomycin IV * Loading dose: 2000 mg (20 mg/kg) * Maintenance dose: 1250 mg IV (12.2 mg/kg) every 8 hours * Goal trough level: 15 to 20 mcg/mL * Trough ordered for 08/11 @1530, prior to 4th maintenance dose * A less than traditional dose has been selected due to likelihood of drug accumulation in obese patient Pharmacy will continue to follow and will adjust dose/frequency as necessary. Thank you.
[2020-08-10] MEDS ORDERED: ENOXAPARIN INJ 30 MG/0.3 ML SYR SQ SCH (09:00)
[2020-08-10] MEDS ORDERED: ENOXAPARIN INJ 40 MG/0.4 ML SYR SQ SCH (09:00)
[2020-08-10] MEDS ORDERED: POTASSIUM CHLORIDE CRTAB 20 MEQ TABCR PO SCH (10:30)
--- NOTE | 2020-08-10 13:06 | Electrocardiogram Report ---
Test Reason : Blood Pressure : / mmHG Vent. Rate : 068 BPM Atrial Rate : 068 BPM P-R Int : 156 ms QRS Dur : 102 ms QT Int : 410 ms P-R-T Axes : 029 -20 001 degrees QTc Int : 435 ms Normal sinus rhythm Normal ECG When compared with ECG of 02-NOV-2019 15:19, Nonspecific T wave abnormality now evident in Inferior leads Confirmed by Tan Dent ([id number]) on 08/10/2020 1:05:57 PM Referred By: REFERRED SELF Confirmed By:Richard Dent
[2020-08-10] MEDS ORDERED: oxyCODONE HCL IR 5 MG TAB (IMMEDIATE RELEASE) PO PRN (13:24)
--- NOTE | 2020-08-10 13:36 | Hospitalist Progress Note ---
Date of Service August 10, 2020 Assessment & Plan (1) Sepsis: 60yo male with a history of total right knee replacement and left chronic ACL tear presents with a one-day history of fever, chills, right knee pain and swelling, and reduced right knee ROM concerning for prosthetic joint infection. Fever, chills, right knee pain Febrile on admission (Tmax 38.6), leukocytosis; no tachycardia or tachypnea, elevated inflammatory markers Likely secondary to right prosthetic joint infection, no other obvious source of infection - UA neg, CXR without acute process, no rash, no diarrhea, no AMS, Lyme negative Blood cultures pending; unfortunately, joint was not aspirated prior to initiation of antimicrobial therapy Ortho consulted, performed bedside aspiration of knee (08/10 in afternoon), follow up culture results, ortho plan Continue vancomycin IV and cefepime IV Patient is virtually immobile secondary to severe pain - continue lovenox Continue IV fluids Trend CBC Hypokalemia K at 3.0 on admission, etiology unclear Repleted orally Trend BMP HTN Continue home meds DM2 Patient's DM2 is diet-controlled; A1c 6.0% in 10/10 DM2 diet Left chronic ACL tear No treatment indicated at this time HLD Continue home atorvastatin FEN: DM2 diet Code status: DNR/DNI DVT ppx: lovenox Held home meds: tadalafil Consults: orthopedic surgery Dispo: med/surg (2) Knee pain, right: (3) History of right knee joint replacement: (4) Hypokalemia: (5) Leukocytosis: (6) Type 2 diabetes mellitus: (7) Hypertension: (8) Hyperlipidemia: (9) GERD without esophagitis: Admission and Anticipated Discharge Date Admission Date: August 09, 2020 Supervising Physician Co-Signing Physician Notes Patient seen and examined independently of PGY 1 Dr. Esquivel. Agree with history, exam findings, assessment and plan of care as outlined. In brief, Mr. John is a 60-year-old male with history of hypertension and right TKA in 2012 admitted with sepsis secondary to a likely right prosthetic knee infection. He was initially started daptomycin and cefepime in the emergency room which was vancomycin and cefepime on admission. Reports that he had some chills. Does report some difficulty ambulating due to the difficulty with knee flexion and feels that the leg sometimes feels unstable. Of note, he does have a chronic ACL tear in the left knee which sometimes makes that knee feel unstable. Some elevated temperatures but no recorded fever. He has no history of prior infections in the knee. Vital signs and nursing notes reviewed. Nontoxic appearing. Right knee with moderate effusion. The knee is warm and tender. There is no overlying erythema or evidence of cellulitis. Full extension. He is only able to flex about 10 degrees less than extension. Left knee with positive Nicolette. Neurovascularly intact in the bilateral distal lower extremities. Labs and imaging reviewed. 1. Sepsis secondary to right prosthetic knee infection. White count is elevated at 13 now trended down to 11. CRP is 20. Pro-Wilfrid 0.84. Orthopedics has been consulted and the knee was aspirated. The aspirate is growing gram- positive cocci. Awaiting MRSA PCR and further speciation before narrowing antibiotics. Possible OR tomorrow. Appreciate orthopedic recommendations. 2. Hypertension. Continue amlodipine, hydrochlorothiazide, lisinopril and guanfacine. Disposition: Pending clinical improvement and further speciation of the knee aspirate. Subjective Patient seen and evaluated at bedside this morning. Reports persistent RLE pain though it has improved some since admission. Reports he is unable to move his RLE at all at this time due to pain. Chills, shaking, and sweating have also improved but have not completely resolved. Denies CP, SOB, abdominal pain, n ausea, and vomiting. Review of Systems Review of Systems: See HPI Physical Exam Physical Exam: Constitutional: tired-appearing, some sweat on face, no acute distress CV: regular rhythm, no murmur appreciated, extremities well-perfused Resp: CTABL, no wheezes/rales/rhonchi appreciated, no increased work of breathing GI: soft, nondistended, nontender, BS normoactive MSK: right knee swollen, nonerythematous, very tender to palpation of the medial compartment of the knee joint space, minimally tender to palpation elsewhere, intolerable pain with active and passive ROM; left knee: nonerythematous, nonedematous, nontender, Nicolette's test positive Skin: warm, dry, no rash appreciated Neuro: AOx4, no focal neurological deficits appreciated Results & Data Results & Data ([facility]) Vital Signs (Past 12 Hours) Vital Signs Temp Pulse Pulse Resp BP Pulse Ox 08/10/20 11:16 37.9 C H 71 18 175/79 H 93 08/10/20 07:54 37.5 C 70 16 163/81 H 94 08/10/20 07:45 69 08/10/20 02:41 37.5 C 66 18 144/62 H 94 (1) Sepsis Sepsis acute organ dysfunction status: unspecified Sepsis type: sepsis due to unspecified organism Qualified Code(s): A41.9 - Sepsis, unspecified organism (2) Knee pain, right Chronicity: acute Qualified Code(s): M25.561 - Pain in right knee
[2020-08-10] MEDS ORDERED: ETHYL CHLORIDE AER PER SPRAY 100 ML CAN EXT ONE (13:40)
[2020-08-10 15:01] LABS: Appearance Synovial Fluid BLOODY; Color Synovial Fluid RED; RBC Synovial Fluid (A) 143100 /uL; Source Synovial Fluid KNEE; WBC Synovial Fluid (A) 66575 /ul (0-200)
[2020-08-10] MEDS: VANCOMYCIN HCL 1,250 MG in SODIUM CHLORIDE 0.9% 250 ML IV SCH (16:54)
[2020-08-10] MEDS: lisinopril 40 MG TAB PO SCH (20:29)
[2020-08-10] MEDS: guanFACINE HCL 1 MG TAB PO SCH (20:29)
[2020-08-10] MEDS: PANTOprazole 40 MG TAB PO SCH (20:29)
[2020-08-10] MEDS: ATORVASTATIN 20 MG TAB PO SCH (20:30)
[2020-08-10] MEDS: amLODIPine BESYLATE 5 MG TAB PO SCH (20:30)
--- NOTE | 2020-08-10 20:58 | Consultation Report ---
CONSULTATION AND PROCEDURE NOTE DATE OF CONSULTATION: 08/10/2020 HISTORY OF PRESENT ILLNESS: This is a 60-year-old gentleman seen at the request of Dr. Card in the medicine service. The patient who is well known to the orthopedic service had a total knee arthroplasty performed by my partner, Dr. Owens in 2012, had an uneventful course of the knee. However, approximately 2 weeks ago, he scraped his right lower leg on his work bench and then he noted on this past , which is 3 days ago, he started having symptoms of severe pain and loss of range of motion of his right knee. He had stiffness and swelling 2 days ago. He came into the ER for evaluation. He had fever and chills, generalized weakness, diminished appetite, some numbness and tingling in the right lower extremity and burning. He was admitted to the hospitalist service after diagnostic tests and radiographs were obtained and orthopedics was then consulted. Upon examination, the patient is noted to have severe discomfort of his right knee. He is alert and oriented x3 and explained his history. Noted no difficulty with the knee prior to . No previous instability, no trauma. PAST MEDICAL HISTORY: Osteoarthritis, hypercholesterolemia, gastroesophageal reflux, coronary artery disease, chronic back pain, radicular low back pain, hearing difficulty, hemorrhoids, hyperlipidemia, hypertension, hypokalemia, kidney stones, urinary tract symptoms, melanoma, nephrolithiasis, rupture of anterior cruciate ligament of left knee, type 2 diabetes mellitus. PAST SURGICAL HISTORY: Cardiac catheterization in 2014, right knee surgery, multiple including total knee arthroplasty, left knee surgery, history of colonoscopy, lithotripsy, tonsillectomy, right total knee arthroplasty [place] [address] Owens, melanoma excision, epidural steroid injections, left knee arthroscopy, tympanoplasty, and spine surgery. ALLERGIES: MELOXICAM WITH EYE ITCHING, OTHERWISE UNVERIFIED. MEDICATIONS: Atorvastatin, multivitamin, acetaminophen, hydrochlorothiazide, Metamucil, tramadol, potassium chloride, pantoprazole, amlodipine, tadalafil, guanfacine, lisinopril and carvedilol. SOCIAL HISTORY: Denies tobacco currently, however, did smoke for 5 years. Denies significant alcohol use. Denies drug use. He is hard of hearing. He is employed. He is and lives with his spouse. PHYSICAL EXAMINATION: This is a 60-year-old gentleman, lying supine in his hospital room bed, in obvious discomfort related to his right knee. He is afebrile currently. Focused examination of the right knee demonstrates a flexed position approximately 5 degrees. It is warm to touch, tender to palpation diffusely around the knee joint. There is some mild local cellulitis; however, the primary discomfort is emanating from the knee joint. He has a large effusion of the right knee, limitation of range of motion is significant due to the effusion. He has chronic venous stasis changes in bilateral lower extremities. He has right lower extremity edema 2+/4 compared to 1+/4 on the left. Pedal pulses are palpable. Bilateral lower extremity sensation is symmetric. RADIOGRAPHS: Demonstrate effusion of the right knee, well-placed cemented total knee arthroplasty components. No obvious fractures. LABORATORIES: Reviewed demonstrating increased markers and indicators consistent with likely a right prosthetic joint infection including white blood cell count 13.28 upon admission, hemoglobin 14.5, hematocrit 40.8, platelets 161, neutrophils 11.55. C-reactive protein 2.8. Procalcitonin 0.84. IMPRESSION: 1. Right knee septic total knee arthroplasty. 2. Effusion of the right knee, right knee pain. RECOMMENDATION: For aspiration of the right total knee arthroplasty with evacuation of effusion and further laboratory analysis of body fluids from the right knee. DESCRIPTION OF PROCEDURE: After obtaining verbal consent from the patient, the right knee was then sterilely prepped with Betadine and alcohol, and approximately 80 mL of vidal-colored purulent material was then withdrawn from the right knee using two 60 mL syringes. Aerobic, anaerobic, Gram stain specimens were obtained and the remainder of the body fluid was then sent to the laboratory to assess for cell count with manual differential, Lyme titer, crystal analysis, aerobic, anaerobic and Gram stain. A sterile compressive Band-Aid was applied over the puncture site. The patient tolerated the procedure well. We will await analysis of the body fluid specimens for further activity; however, we will schedule the patient for right knee irrigation and debridement with polyethylene exchange tomorrow. N.p.o. after midnight for planned surgery in the morning. We will reassess laboratory data after it is revealed. Thank you for the opportunity to consult and the care of this patient. Job ID: [id number] [facility]
[2020-08-11] MEDS: VANCOMYCIN HCL 1,250 MG in SODIUM CHLORIDE 0.9% 250 ML IV SCH ×3 (00:13→18:49)
[2020-08-11] MEDS: ACETAMINOPHEN 1,000 MG/100 ML VIAL IV PRN (03:10)
--- NOTE | 2020-08-11 05:17 | Billing Data ---
Date of Service August 11, 2020 Coding Level of Care Code 67000 Initial Inpt Care Lvl 3
[2020-08-11] MEDS: CEFEPIME 2,000 MG in SYRINGE 0 ML IV SCH ×3 (05:39→22:12)
[2020-08-11] MEDS: NSS + 20MEQ KCL 20 MEQ/1,000 ML BAG IV SCH ×3 (05:43→22:13)
[2020-08-11] MEDS ORDERED: EPINEPHrine INJ 1 MG/ML AMP ONE (06:49)
[2020-08-11] MEDS ORDERED: BUPIVACAINE 0.5 % 5 MG/1 ML PF 10ML VIAL ONE (06:50)
[2020-08-11] MEDS ORDERED: ROPIVACAINE 0.5% 5 MG/ML 30 ML VIAL ONE (06:50)
[2020-08-11 08:06] LABS: Basophils # (auto) 0.02 K/uL (0-0.2); Basophils % (auto) 0.2 %; Eosinophils # (auto) 0.15 K/uL (0-0.5); Eosinophils % (auto) 1.7 %; Hematocrit (blood only) 40.1 % (42-52); Hemoglobin 14.4 g/dL (14.0-18.0); Immature Granulocytes # (auto) 0.02 K/uL (0.00-0.02); Immature Granulocytes % (auto) 0.2 %; Lymphocytes % (auto) 10.1 %; Mean Corpuscular Hemoglobin 31.2 pg (25-34); Mean Corpuscular Hgb Conc 35.9 g/dL (32-36); Mean Platelet Volume 10.3 fL (7.4-10.4); Monocytes # (auto) 0.91 K/uL (0.11-0.59); Monocytes % (auto) 10.2 %; Neutrophils # (auto) 6.88 K/uL (1.4-6.5); Neutrophils % (auto) 77.6 %; Platelet Count 174 K/uL (130-400); RDW Standard Deviation 41.5 fL (36.4-46.3); Red Blood Count 4.61 M/uL (4.7-6.1); White Blood Count 8.88 K/uL (4.8-10.8)
[2020-08-11] MEDS: hydroCHLOROthiazide 25 MG TAB PO SCH (08:26)
[2020-08-11] MEDS: carvediloL 12.5 MG TAB PO SCH ×2 (08:26→21:32)
[2020-08-11] MEDS: POTASSIUM CHLORIDE CRTAB 20 MEQ TABCR PO SCH ×2 (08:26→21:33)
[2020-08-11 08:35] LABS: BUN Creatinine Ratio 14.4 (10-20); Calcium 8.7 mg/dl (8.5-10.1); Creatinine Clr Calc Pharmacy 132.8 ml/min; Est GFR (African American) 119.9 ml/min; Est GFR (Non-African American) 103.4 ml/min; Potassium 3.2 mmol/L (3.5-5.1)
[2020-08-11] MEDS ORDERED: POTASSIUM CHLORIDE CRTAB 20 MEQ TABCR PO STA (09:49)
--- NOTE | 2020-08-11 13:23 | Hospitalist Progress Note ---
Date of Service August 11, 2020 Assessment & Plan (1) Sepsis: 60yo male with a history of total right knee replacement and left chronic ACL tear presents with a one-day history of fever, chills, right knee pain and swelling, and reduced right knee ROM concerning for prosthetic joint infection. Right Prosthetic Knee Joint INfection - Febrile on admission (Tmax 38.6), leukocytosis; no tachycardia or tachypnea, elevated inflammatory markers - Likely secondary to right prosthetic joint infection, no other obvious source of infection - UA neg, CXR without acute process, no rash, no diarrhea, no AMS, Lyme negative - Blood cultures w/ no growth after 24 hours - Ortho consulted, performed bedside aspiration of knee (08/10 in afternoon) - Joint fluid culture w/ no growth to date - Ortho plans to take patient to OR today for wash out - Appreciate ortho assistance and recommendations - Continue vancomycin IV and cefepime IV - Lovenox discontinued 08/10 in preparation for OR - Continue IV fluids - Trend CBC Hypokalemia - K at 3.0 on admission, etiology unclear - Repleted orally, increased to 3.2 today --> will continue to trend BMP and replete as indicated HTN - Continue home meds DM2 - Patient's DM2 is diet-controlled; A1c 6.0% in 10/10 - DM2 diet Left chronic ACL tear - No treatment indicated at this time HLD - Continue home atorvastatin FEN: DM2 diet Code status: DNR/DNI DVT ppx: lovenox Held home meds: tadalafil Consults: orthopedic surgery Dispo: med/surg Admission and Anticipated Discharge Date Admission Date: August 09, 2020 Supervising Physician Co-Signing Physician Notes I personally examined the patient and verified all hardin points of history and exam, discussed case, and agree with decision making with Dr García. Seen postop. Pain under good control, still somewhat groggy. Answered all questions to the best my ability. Vitals noted, in general he is awake and alert pleasant no distress. HEENT normocephalic atraumatic mucous membranes are moist. Breathing unlabored no accessory muscle use good effort. Skin shows no rashes no pallor or icterus. Septic arthritis of the kneenow post washoutappreciate orthopedic input, continue antibiotics. PT/OT eval and treat. Otherwise as above Subjective Patient seen and evaluated at bedside this morning. Reports persistent right knee pain but states that it overall feels better since I&D on Tuesday. Patient does not some increased swelling since last night. He is unable to move his knee much secondary to the pain. Previous complaint of fever and chills has resolved. Denies CP, SOB, abdominal pain, nausea, and vomiting. Patient has been NPO since midnight in preparation to go to the OR today for a washout. Review of Systems Review of Systems: See HPI Physical Exam Physical Exam: GENERAL: No acute distress, resting comfortably in bed. Well developed and well nourished. Vital signs reviewed as above. EYES: EOMI. Anicteric sclerae. HENT: Moist mucous membranes. RESPIRATORY: Clear to auscultation bilaterally. No wheezing, rales, or rhonchi. CARDIOVASCULAR: Regular rate and rhythm. No murmurs. ABDOMEN: Soft, non-tender and non-distended. Normal bowel sounds. EXTREMITIES: Right knee with slight flexion, moderate swelling, and increased warmth to touch. Mild tenderness to palpation throughout knee. SKIN: Warm, dry. NEUROLOGIC: A/O x3. No focal neurological deficits. PSYCHIATRIC: Cooperative. Appropriate mood and affect. Results & Data Results & Data ([facility]) Vital Signs (Past 12 Hours) Vital Signs Temp Pulse Pulse Resp BP Pulse Ox 08/11/20 11:04 37.5 C 68 18 165/85 H 95 08/11/20 07:48 60 08/11/20 06:55 36.8 C 67 18 168/84 H 96 08/11/20 03:00 37.7 C H 72 18 172/82 H 95 Resident Activity Tracking Resident Involvement: Resident Care Provided Care Provided: Adult [facility] Medicine (1) Sepsis Sepsis acute organ dysfunction status: unspecified Sepsis type: sepsis due to unspecified organism Qualified Code(s): A41.9 - Sepsis, unspecified organism
[2020-08-11] MEDS ORDERED: PROPOFOL IV EMULSION 10 MG/ML 20 ML VIAL IV ONE (14:33)
[2020-08-11] MEDS ORDERED: DEXAMETHASONE SOD INJ 4 MG/ML VIAL ONE (14:33)
[2020-08-11] MEDS ORDERED: ONDANSETRON INJ 2 MG/ML 2 ML VIAL ONE ×2 (14:33→16:05)
[2020-08-11] MEDS ORDERED: fentaNYL citrate 100 MCG/2 ML VIAL ONE (14:33)
[2020-08-11] MEDS ORDERED: MIDAZOLAM HCL 1 MG/ML 2ML VIAL ONE (14:42)
--- NOTE | 2020-08-11 14:49 | Anesthesiology Consultation ---
Date of Service August 11, 2020 Assessment & Plan (1) Encounter for pre-operative examination: Chart Review Chart Review: Acceptable Risk for Surgery and Patient NOT seen in Pre Admission Testing Consults Requested none ASA ASA3 Proposed Anesthesia Anesthesia Type: General Risk / Benefits Reviewed With: PT / POA / Parent / Guardian, Accepts Plan and In formed Consent Obtained History Surgery Operation Date: 08/11/20 08:00 Proposed Procedures p Right Incision and Drainage Poly Exchange Knee - Manoj Shafer MD Height/Weight Height: 5 ft 11 in Weight: 94.1 kg Allergies Allergy/AdvReac Type Severity Reaction Status Date / Time meloxicam Allergy EYES ITCHY Unverified 08/09/20 20:31 Medications Home Medications Medication Instructions Recorded Confirmed Last Taken atorvastatin 20 mg tablet 20 mg PO HS tab 09/13/18 08/09/20 11/15/19 12:00 multivitamin with minerals 1 tab PO HS tab 09/13/18 08/09/20 11/15/19 08:00 acetaminophen 500 mg tablet 500 mg PO DAILY PRN tab 12/13/18 08/09/20 11/15/19 12:00 hydrochlorothiazide 25 mg tablet 25 mg PO QAM tab 12/13/18 08/09/20 11/15/19 08:00 Metamucil 1 tbsp PO HS 10/30/19 08/09/20 11/15/19 23:00 tramadol 50 mg PO Q6H PRN #20 tab 11/17/19 08/09/20 Unknown potassium chloride 20 mEq 40 meq PO BID #360 tab 12/19/19 08/09/20 Unknown tablet,extended release pantoprazole 40 mg tablet,delayed 40 mg PO HS #90 tab 03/28/20 08/09/20 Unknown release amlodipine 10 mg tablet 10 mg PO HS #90 tab 04/11/20 08/09/20 Unknown tadalafil 5 mg tablet 20 mg PO ONCE PRN #30 tab 05/09/20 08/09/20 Unknown guanfacine 2 mg tablet 2 mg PO HS #90 tab 05/26/20 08/09/20 Unknown lisinopril 40 mg tablet 40 mg PO HS #90 tab 07/07/20 08/09/20 Unknown carvedilol 12.5 mg tablet 12.5 mg PO BID #180 tab 07/16/20 08/09/20 Unknown Active Medications Generic Name Dose Route Start Last Admin Trade Name Freq PRN Reason Stop Dose Admin Amlodipine Besylate 10 mg 08/10/20 21:00 08/10/20 20:30 Amlodipine Besylate 5 Mg Tab PO 09/09/20 20:59 10 mg HS RBYN Administration Atorvastatin Calcium 20 mg 08/10/20 21:00 08/10/20 20:30 Atorvastatin 20 Mg Tab PO 09/09/20 20:59 20 mg HS BRYN Administration Carvedilol 12.5 mg 08/10/20 09:00 08/11/20 08:26 Carvedilol 12.5 Mg Tab PO 09/09/20 08:59 12.5 mg BID BRYN Administration Guanfacine HCl 2 mg 08/10/20 21:00 08/10/20 20:29 Guanfacine Hcl 1 Mg Tab PO 09/09/20 20:59 2 mg HS BRYN Administration Hydrochlorothiazide 25 mg 08/10/20 09:00 08/11/20 08:26 Hydrochlorothiazide 25 Mg Tab PO 09/09/20 08:59 25 mg QAM BRYN Administration Potassium Chloride/Sodium Chloride 20 meq in 1,000 mls @ 125 mls/hr 08/09/20 22:00 08/11/20 05:43 Normal Saline W/20 Meq Kcl IV 09/08/20 21:59 125 mls/hr .Q8H BRYN Administration Acetaminophen 1,000 mg in 100 mls @ 400 mls/hr 08/10/20 00:11 08/11/20 03:58 Ofirmev IV 08/13/20 00:10 Infused Q8H PRN Infusion Pain Cefepime HCl 2,000 mg/ Syringe 20 mls @ 5 mls/min 08/10/20 06:00 08/11/20 13:12 IV 09/21/20 05:59 5 mls/min Q8H BRYN Administration Protocol Vancomycin HCl 1,250 mg/ 275 mls @ 200 mls/hr 08/10/20 16:00 08/11/20 09:55 Sodium Chloride IV 09/21/20 15:59 Infused Q8H BRYN Infusion Protocol Lisinopril 40 mg 08/10/20 21:00 08/10/20 20:29 Lisinopril 40 Mg Tab PO 09/09/20 20:59 40 mg HS BRYN Administration Pantoprazole Sodium 40 mg 08/10/20 21:00 08/10/20 20:29 Pantoprazole 40 Mg Tab PO 09/09/20 20:59 40 mg HS BRYN Administration Potassium Chloride 40 meq 08/10/20 09:00 08/11/20 08:26 Potassium Chloride Crtab 20 Meq Tabcr PO 09/09/20 08:59 40 meq BID BRYN Administration NPO Date Last Intake of Fluids: 08/10/20 Time Last Intake of Fluids: 17:00 Date Last Intake of Solids: 08/10/20 Time Last Intake of Solids: 17:00 Past Medical History Medical History CAD (coronary artery disease) minor CAD per 2015 cardiac cath Chronic back pain Chronic radicular low back pain Degenerative disc disease GERD without esophagitis controlled Hearing difficulty Hemorrhoids Hyperlipidemia Hypertension Hypokalemia Kidney stones Knee pain, bilateral Leg pain, left Lower urinary tract symptoms (LUTS) Melanoma hx (follows with dermatology) Nephrolithiasis Osteoarthritis Rupture of anterior cruciate ligament of left knee Type 2 diabetes mellitus diet controlled Exercise / Class Metabolic Activity II 4-5 Yardwork/Stairs/Walk up hill Past Family History Family History Mother Melanoma malignant Hypertension Father Cardiac disorder Myocardial infarction Hypertension Gallbladder disease Sister Graves disease Other No family history of adverse response to anesthesia Denies family history of Ovarian cancer Prostate cancer Breast cancer Colorectal cancer Past Surgical History Surgical History H/O cardiac catheterization ~2014- no stents H/O knee surgery right (multiple) History of colonoscopy History of lithotripsy History of tonsillectomy History of total knee arthroplasty right Hx of melanoma excision S/P epidural steroid injection S/P left knee arthroscopy S/P tympanoplasty right Past Anesthesia History No Hx of Anesthesia Complications and No Family Hx of Anesthesia Complications History of PONV No Hx of PONV and No Hx of Motion Sickness Social History Smoking Status: Former smoker tobacco type: cigarettes Hx Alcohol Use: No Hx Substance Use: No substance use type: does not use Physical Exam Vital Signs Last Vital Signs Temp 37.5 C 08/11/20 11:04 Pulse 68 08/11/20 11:04 Resp 18 08/11/20 11:04 BP 165/85 H 08/11/20 11:04 Pulse Ox 95 08/11/20 11:04 ENMT Mouth: no dentition abnormality Thyromental Distance: > or= 3.5 Finger Breadths Mallampati Class: II Neck normal visual inspection Respiratory normal respiratory effort Auscultation: lungs clear to auscultation bilaterally Cardiovascular Rate/Rhythm: regular rate and regular rhythm Psychiatric Orientation: alert Lab Results Anesthesia Preop Results Results Anesthesia Widget: WBC 8.88 K/uL (4.8-10.8) 08/11/20 Hgb 14.4 g/dL (14.0-18.0) 08/11/20 Hct 40.1 % (42-52) L 08/11/20 Plt 174 K/uL (130-400) 08/11/20 Na 142 mmol/L (136-145) 08/11/20 K 3.2 mmol/L (3.5-5.1) L 08/11/20 Cl 110 mmol/L (98-107) H 08/11/20 CO2 23 mmol/L (21-32) 08/11/20 BUN 10 mg/dl (7-18) 08/11/20 Creat 0.71 mg/dl (0.6-1.4) 08/11/20 Glucose Level 135 mg/dl (70-99) H 08/11/20 POC Glucose 138 mg/dl (70-99) H 08/11/20 PT 11.4 Seconds (9.0-12.0) 08/09/20 PTT 26.0 Seconds (21.0-31.0) 08/09/20 INR 1.1 (0.9-1.1) 08/09/20 Urine Color Dark Yellow 08/09/20 Urine Appearance Clear (Clear) 08/09/20 Urine pH 6.5 (4.5-7.5) 08/09/20 Urine Specific [place] 1.019 (1.000-1.030) 08/09/20 Urine Protein 1+ (Negative) H 08/09/20 Urine Glucose (UA) Negative (Negative) 08/09/20 Urine Ketones Trace (Negative) H 08/09/20 Urine Blood Negative (Negative) 08/09/20 Urine Nitrite Negative (Negative) 08/09/20 Urine Bilirubin 1+ (Negative) H 08/09/20 Urine Urobilinogen Negative (Negative) 08/09/20 Urine Leukocyte Esterase Negative (Negative) 08/09/20 Urine WBC (Auto) 10-30 /hpf (0-5) H 08/09/20 Urine RBC (Auto) 0-4 /hpf (0-4) 08/09/20 Urine Hyaline Casts (Auto) 0 /lpf (0-5) 08/09/20 Urine Epithelial Cells (Auto) >30 /lpf (0-5) H 08/09/20 Urine Bacteria (Auto) Negative (Negative) 08/09/20 COVID-19 PCR NEGATIVE (Negative) 08/09/20 Testing Laboratory Results 08/11/20 07:45 08/11/20 07:45 PT 11.4 Seconds (9.0-12.0) 08/09/20 19:33 INR 1.1 (0.9-1.1) 08/09/20 19:33 APTT 26.0 Seconds (21.0-31.0) 08/09/20 19:33 Urine Color Dark Yellow 08/09/20 20:38 Urine Appearance Clear (Clear) 08/09/20 20:38 Urine pH 6.5 (4.5-7.5) 08/09/20 20:38 Ur Specific [place] 1.019 (1.000-1.030) 08/09/20 20:38 Urine Protein 1+ (Negative) H 08/09/20 20:38 Urine Glucose (UA) Negative (Negative) 08/09/20 20:38 Urine Ketones Trace (Negative) H 08/09/20 20:38 Urine Nitrite Negative (Negative) 08/09/20 20:38 Ur Leukocyte Esterase Negative (Negative) 08/09/20 20:38 Urine WBC (Auto) 10-30 /hpf (0-5) H 08/09/20 20:38 Urine RBC (Auto) 0-4 /hpf (0-4) 08/09/20 20:38 U Hyaline Cast (Auto) 0 /lpf (0-5) 08/09/20 20:38 U Epithel Cells (Auto) >30 /lpf (0-5) H 08/09/20 20:38 Urine Bacteria (Auto) Negative (Negative) 08/09/20 20:38 08/10/20 14:00 Gram Stain - Final Joint Fluid,Knee Aerobic and Anaerobic Culture - Preliminary No growth to date. 08/09/20 20:38 Urine Culture - Final Urine,Clean Catch No growth - less than 1,000 colonies/mL. 08/09/20 19:46 Aerobic Blood Culture - Preliminary Blood No growth in Aerobic bottle after 24 hours. Anaerobic Blood Culture - Preliminary No growth in Anaerobic bottle after 24 hours. 08/09/20 19:33 Aerobic Blood Culture - Preliminary Blood No growth in Aerobic bottle after 24 hours. Anaerobic Blood Culture - Preliminary No growth in Anaerobic bottle after 24 hours. 08/11/20 11:12 POC Glucose 138 H
[2020-08-11] MEDS ORDERED: VANCOMYCIN HCL 1000MG/20ML VIAL ONE (15:05)
--- NOTE | 2020-08-11 15:07 | History & Physical Bridge Note ---
Date of Service August 11, 2020 History & Physical Bridge Note I have examined the patient, reviewed the History & Physical and in the interval since the performance of the History & Physical I have noted the following changes of clinical significance: no changes noted
[2020-08-11] MEDS ORDERED: ONDANSETRON INJ 2 MG/ML 2 ML VIAL IV PRN (15:14)
[2020-08-11] MEDS ORDERED: ATROPINE SULFATE 0.1 MG/ML 10ML SYR IV PRN (15:14)
[2020-08-11] MEDS ORDERED: fentaNYL citrate 100 MCG/2 ML VIAL IV PRN (15:14)
[2020-08-11] MEDS ORDERED: ePHEDrine sulfate 50 MG/ML AMP IV PRN (15:14)
[2020-08-11] MEDS ORDERED: HYDROmorphone INJ 2 MG/ML SYR/VIAL ONE (15:21)
[2020-08-11] MEDS ORDERED: VANCOMYCIN TROUGH ONE (15:30)
[2020-08-11] MEDS ORDERED: GLYCOPYRROLATE 0.2 MG/ML VIAL ONE (16:05)
[2020-08-11] MEDS ORDERED: KETOROLAC 30 MG/ML VIAL ONE (16:05)
--- NOTE | 2020-08-11 17:16 | Post Operative Brief Note ---
Immediate Post Op Note v1 Date of Surgery August 11, 2020 Pre & Post Diagnosis Operation Date: 08/11/20 08:00 Pre-Op Diagnosis: Right knee acute septic total knee arthroplasty, effusion of the right knee, right knee pain, chronic arthrofibrosis status post uncemented total knee replacement history of prior ligamentous reconstruction knee. Post-Op Diagnosis: Right knee acute septic total knee arthroplasty, effusion of the right knee, right knee pain, chronic arthrofibrosis status post uncemented total knee replacement history of prior ligamentous reconstruction knee. I identified the patient and participated in the time-out.: Yes Procedure Operation Date: 08/11/20 08:00 Actual Procedures p Open irrigation and debridement right total knee , extensive electrocautery synovectomy with excision scarred synovial tissue, application of stimulan beads and closure over drains and application superficial wound VAC (Right) - Manoj Shafer MD Surgeon Manoj Shafer MD Yard Operator Jaime EVANS Estimated Blood Loss 10 Findings Consistent with Post-Op Diagnosis Specimens Synovial tissue and cultures and synovial periosteal tissue for culture. Drains Hemovac Drain Anesthesia Type General Complications none Disposition Accompanied Patient To Recovery: No Disposition: Recovery Room Overlapping Procedure I was immediately available: during the entire case.
--- NOTE | 2020-08-11 17:40 | Anesthesiology Progress Note ---
Date of Service August 11, 2020 Anesthesia Post Procedure Vital Signs Vital Signs: Temp Pulse Pulse Pulse Resp BP BP 08/11/20 17:30 75 16 161/88 H 08/11/20 17:22 36.9 C 88 16 174/93 H 08/11/20 14:00 38.3 C H 72 18 176/100 H 08/11/20 11:04 37.5 C 68 18 165/85 H 08/11/20 07:48 60 08/11/20 06:55 36.8 C 67 18 168/84 H 08/11/20 03:00 37.7 C H 72 18 172/82 H 08/11/20 00:27 72 08/10/20 22:53 37.7 C H 72 20 181/87 H 08/10/20 19:21 37.8 C H 76 18 173/81 H Pulse Ox 08/11/20 17:30 94 08/11/20 17:22 97 08/11/20 14:00 96 08/11/20 11:04 95 08/11/20 07:48 08/11/20 06:55 96 08/11/20 03:00 95 08/11/20 00:27 08/10/20 22:53 97 08/10/20 19:21 94 Pain Intensity Right Leg: Pain Intensity: 3 Transfer of Care Handoff Completed per policy Notes Mental Status: alert / awake / arousable and participated in evaluation Patient Amnestic to Procedure: Yes Nausea / Vomiting: adequately controlled Pain: adequately controlled Airway Patency, RR, SpO2: stable & adequate BP & HR: stable & adequate Hydration State: stable & adequate Anesthetic Complications: no major complications apparent
--- NOTE | 2020-08-11 17:53 | XRay Report ---
TWO VIEWS RIGHT KNEE CLINICAL HISTORY: Postoperative examination. FINDINGS: AP and crosstable lateral portable views of the right knee are obtained. A right knee arthr oplasty is in near anatomic alignment. There has been undersurface remodeling of the patella. No acut e fracture is seen. There are expected postoperative changes around the knee including skin clips, a surgical drain, soft tissue edema, and subcutaneous gas. Antibiotic implants are in place. IMPRESSION: Expected postoperative changes status post right knee arthroplasty. No acute fracture is seen. ACT 112: Negative or not required by law. Electronically signed by: Mike Alonso M.D. 08/11/2020 5:51 PM
[2020-08-11] MEDS ORDERED: MAGNESIUM HYDROXIDE SUSP 30 ML UDC PO PRN (18:24)
[2020-08-11] MEDS ORDERED: bisacodyL 10 MG SUPP PR PRN (18:24)
[2020-08-11] MEDS ORDERED: NALOXONE HCL 0.4 MG/1 ML VIAL/CARP IV PRN (18:24)
[2020-08-11] MEDS ORDERED: HYDROmorphone INJ 0.5 MG/0.5 ML SYR IV PRN (18:24)
--- NOTE | 2020-08-11 18:48 | Billing Data ---
Date of Service August 11, 2020 Coding Level of Care Code 92150 Subseq Hosp Care Lvl 3
--- NOTE | 2020-08-11 19:16 | Operative Report (OR) ---
DATE OF SURGERY: 08/11/2020. INDICATION FOR PROCEDURE: The patient is a 60-year-old male who is status post a previous uncemented right total knee replacement years ago. The patient had stiffness after the initial knee replacemen t that never resolved, but he was living with his present condition. Patient had acute onset of swel ling, pain and illness requiring admission to the hospital after which laboratory results demonstrate his white blood cell count was 13.28 and a knee aspirate demonstrated 66,575, synovial white blood c ells is 98% polymorphonuclear cells and a Gram stain demonstrating gram-positive cocci consistent wit h acute septic knee replacement. His x-rays demonstrate he has uncemented components of the femur, t ibia, and patella. The tibial component is not modular even though it is metal back. The patient fierro s a Robert total knee replacement. The patient has limited range of motion of his knee and was limit ed prior to the infection. PREOPERATIVE DIAGNOSES: Right acute septic total knee arthroplasty, knee effusion, chronic arthrofib rosis, status post uncemented total knee replacement with history of a prior ligamentous reconstructi on of his knee. POSTOPERATIVE DIAGNOSES: Right acute septic total knee arthroplasty, knee effusion, chronic arthrofi brosis, status post uncemented total knee replacement with history of a prior ligamentous reconstruct ion of his knee. PROCEDURE: Open irrigation and debridement, right total knee replacement, extensive electrocautery s ynovectomy with excision scarred synovial tissue, application of Stimulan beads and closure over drai ns, including application of a superficial wound VAC. SURGEON: Manoj Shafer MD. ASSISTANTS: NATHAN Pérez. ANESTHESIOLOGIST: 10 mL. FINDINGS: Consistent with postoperative diagnosis, specimen, synovial tissue and cultures including synovial/periosteal tissue for culture and drains were Hemovac drains x2. ANESTHESIA: General. COMPLICATIONS: None. DISPOSITION: Recovery room. DESCRIPTION OF PROCEDURE: The patient was taken to the operating room and placed under general anest hetic. A pneumatic tourniquet was placed about his right upper thigh. Knee exam demonstrated he had a stable knee in extension and in flexion, mid flexion had some varus valgus laxity. He had a moder ately large knee effusion and had 0 through 45 degrees range of motion. The patient also had some ve nous stasis changes of his lower leg. His right lower extremity was prepped and draped in sterile fa shion using ChloraPrep. His leg was elevated to help drain the veins. No Esmarch was used due to th e infection and then a pneumatic tourniquet was raised to 325 mmHg. His previous anterior longitudin al scar was used for the procedure. Skin was incised in longitudinal fashion and subcutaneous flaps were elevated. The extensor mechanism was intact. An incision was made through the medial retinacul um extended up into the mid third of the quadriceps tendon and extended down to the medial tibial tub ercle. The synovial tissue was markedly thickened and scarred and there was about 2.5 cm of scarred synovial tissue in terms of thickness. When the joint was entered, there was some blood-tinged sligh tly cloudy fluid. No lea pus. This was cultured. I removed some of the synovium and up to get ex posure of the joint, so we could start with irrigation. All components were well fixed. The knee wa s first copiously irrigated with 3 liters of antibiotic solution with Ancef in the solution, 1 gram o f Ancef per 3 liters of fluid. After the knee was irrigated with 3 liters of fluid, I went ahead and did an electrocautery synovectomy removing all the thickened synovial tissue and scar tissue. Start ed with the medial gutter first and extended up into the suprapatellar pouch. Then, the lateral gutt er and synovium was removed in the notch area. There was some tissue in the notch that we removed wh ich was a synovial/periosteal type tissue adjacent to the implant bone interface that was sent for cu lture. The remainder of the thickened synovium was sent for permanent evaluation. The femur bone ad jacent to the femoral component on the medial side demonstrated some chronic erosion that could have been osteolysis or infection could not be ruled out. There was no loosening of the well-fixed unceme nted components. Using a small rongeur, all of the synovial tissue in the area of the erosion along the edges of the femoral implant were removed. There were no erosions along the tibial implant. The re were no erosions around the patella. There was thickened synovial tissue around the patella. Thi s thickened synovial tissue was resected. The scarred thickened infrapatellar fat pad was also resec jennifer, preserving the patellar tendon. After the complete synovectomy was performed, aside from the po sterior synovium that could not be accessed because the tibial polyethylene was not modular. There d id not appear to be any substantial wear on the tibial polyethylene. The patella did have some wear, which was smooth and superficial. Polyethylene post was intact. A Betadine scrub was performed, sc rubbing the metallic surfaces. Polyethylene was scrubbed. The joint was irrigated out again with 3 more liters of pulsatile lavage antibiotic solution with Ancef. Stimulan beads were then made with 1 gram of vancomycin about 10 mL. The knee was soaked with Betadine soak for 3 minutes. This was agai n irrigated out with more antibiotic solution with Ancef for a total of 9 liters. Then, two Hemovac drains were brought out laterally. We did take the knee through a range of motion. I was able to ge t the knee to 90 degrees range of motion at this time and the patella tracked centrally. At this krystle e, Stimulan beads were placed in the gutters medially and laterally and in suprapatellar pouch area a nd then the quadriceps tendon and medial retinaculum were closed using [id number] #1 Vicryl bact erial resistant suture material. Knee was taken through 0 through 90 degrees of motion and the repai r was secured. Then, the subcutaneous tissues were irrigated with pulsatile lavage, plain saline devonte ution and then the subcutaneous tissues were closed with interrupted 2-0 bacterial resistant Vicryl s utures and then the skin was closed with sam and then a superficial wound VAC was applied. The p atient tolerated the procedure well. Jaime Gomes was my payroll administrative assistant in the procedure. He ass isted throughout the entire procedure. He assisted in prepping, draping, soft tissue retraction and performed the fascial subcutaneous closure and skin closure and applied superficial wound VAC. I marti mason participate in postoperative care of your patient. Job ID: [id number]
[2020-08-11] MEDS ORDERED: VANCOMYCIN HCL 1,250 MG in SODIUM CHLORIDE 0.9% 250 ML IV ONE (20:00)
--- NOTE | 2020-08-11 20:38 | Pharmacy Report ---
Pharmacy Abx Dose Short Note - Date of Service August 11, 2020 - Assessment & Plan Assessment 60 year old M receiving Vancomycin for treatment of prosthetic joint infection Day # 3 of antimicrobial therapy. Patient was in OR when 1600 dose due. Trough level not drawn at 1530 and dose not given. Spoke with nurse around 1900 and patient was back to floor. Had stat trough level drawn. Changed dose to 1500mg q8h. Plan Laboratory Tests 08/11/20 19:39 Vancomycin Trough 6.6 Vancomycin * Trough level of 6.6 mcg/mL is subtherapeutic * Change to 1500 mg IV every 8 hours * Goal trough level for joint infection : 15 to 20 mcg/mL * Trough level ordered for: 08/12/20 Pharmacy will continue to follow and will adjust dose/frequency as necessary. Thank you.
[2020-08-11] MEDS: amLODIPine BESYLATE 5 MG TAB PO SCH (21:31)
[2020-08-11] MEDS: guanFACINE HCL 1 MG TAB PO SCH (21:32)
[2020-08-11] MEDS: ATORVASTATIN 20 MG TAB PO SCH (21:34)
[2020-08-11] MEDS: lisinopril 40 MG TAB PO SCH (21:34)
[2020-08-11] MEDS: PANTOprazole 40 MG TAB PO SCH (21:35)
[2020-08-11] MEDS: oxyCODONE HCL IR 5 MG TAB (IMMEDIATE RELEASE) PO PRN (21:35)
[2020-08-11] MEDS: SENNA 8.6 MG TAB PO SCH (22:03)
[2020-08-11] MEDS: DOCUSATE SODIUM 100 MG CAP PO SCH (22:03)
[2020-08-11] MEDS: VANCOMYCIN HCL 1,500 MG in SODIUM CHLORIDE 0.9% 500 ML IV SCH (22:12)
[2020-08-12] MEDS: oxyCODONE HCL IR 5 MG TAB (IMMEDIATE RELEASE) PO PRN ×3 (04:39→21:17)
[2020-08-12] MEDS: VANCOMYCIN HCL 1,500 MG in SODIUM CHLORIDE 0.9% 500 ML IV SCH ×3 (05:54→21:15)
[2020-08-12] MEDS: CEFEPIME 2,000 MG in SYRINGE 0 ML IV SCH ×2 (06:22→15:14)
[2020-08-12 07:37] LABS: Hematocrit (blood only) 34.6 % (42-52); Hemoglobin 12.2 g/dL (14.0-18.0); Mean Corpuscular Hemoglobin 31.1 pg (25-34); Mean Corpuscular Hgb Conc 35.3 g/dL (32-36); Mean Corpuscular Volume 88.3 fL (80-100); Platelet Count 176 K/uL (130-400); RDW Coefficient of Variation 12.8 % (11.5-14.5); RDW Standard Deviation 41.4 fL (36.4-46.3); Red Blood Count 3.92 M/uL (4.7-6.1); White Blood Count 6.64 K/uL (4.8-10.8)
[2020-08-12 08:35] LABS: BUN Creatinine Ratio 27.4 (10-20); Calcium 8.6 mg/dl (8.5-10.1); Est GFR (African American) 121.3 ml/min; Est GFR (Non-African American) 104.6 ml/min; Potassium 4.3 mmol/L (3.5-5.1)
[2020-08-12] MEDS: RIVAROXABAN 10 MG TABLET PO SCH (08:47)
[2020-08-12] MEDS: MULTIVITAMIN TAB PO SCH (08:48)
[2020-08-12] MEDS: DOCUSATE SODIUM 100 MG CAP PO SCH ×2 (08:48→21:16)
[2020-08-12] MEDS: POTASSIUM CHLORIDE CRTAB 20 MEQ TABCR PO SCH ×2 (08:49→21:16)
[2020-08-12] MEDS: carvediloL 12.5 MG TAB PO SCH ×2 (08:49→21:16)
[2020-08-12] MEDS: hydroCHLOROthiazide 25 MG TAB PO SCH (08:49)
[2020-08-12] MEDS: NSS + 20MEQ KCL 20 MEQ/1,000 ML BAG IV SCH ×3 (08:50→23:21)
[2020-08-12] MEDS ORDERED: GLUCOSE 40% GEL 15 GM TUBE PO PRN (13:28)
[2020-08-12] MEDS ORDERED: CARBOHYDRATES FOR HYPOGLYCEMIA PO PRN (13:28)
[2020-08-12] MEDS ORDERED: DEXTROSE 50% 50 ML SYRINGE IV PRN (13:28)
[2020-08-12] MEDS ORDERED: GLUCOSE 10 TABS/TUBE PO PRN (13:28)
[2020-08-12] MEDS ORDERED: DC ALL PREVIOUSLY ORDERED DIABETES MEDS ONE (13:28)
[2020-08-12] MEDS ORDERED: GLUCAGON FOR INJ 1 MG VIAL SQ PRN (13:28)
--- NOTE | 2020-08-12 15:13 | Medical Student Progress Note ---
Date of Service August 12, 2020 Assessment & Plan (1) Sepsis: 60yo male with a history of total right knee replacement and left chronic ACL tear presents with a one-day history of fever, chills, right knee pain and swelling, and reduced right knee ROM concerning for prosthetic joint infection. Right Prosthetic Knee Joint INfection - Febrile on admission (Tmax 38.6), leukocytosis; no tachycardia or tachypnea, elevated inflammatory markers - Likely secondary to right prosthetic joint infection, no other obvious source of infection - UA neg, CXR without acute process, no rash, no diarrhea, no AMS, Lyme negative - Blood cultures w/ no growth after 24 hours - Ortho consulted, performed bedside aspiration of knee (08/10) and washout (08/12) - Joint fluid 08/10 alpha strep, 08/11 staph species- culture pending - Recommendations from ortho appreciated - Continue vancomycin IV and - Discontinued cefepime IV 08/11 - Lovenox discontinued 08/10 in preparation for OR - Continue IV fluids - Trend CBC Hypokalemia - K at 3.0 on admission, etiology unclear - Repleted orally, increased to 4.3 today --> will continue to trend BMP and replete as indicated HTN - Continue home meds DM2 - Patient's DM2 is diet-controlled; A1c 6.0% in 10/10 - DM2 diet Left chronic ACL tear - No treatment indicated at this time HLD - Continue home atorvastatin FEN: DM2 diet Code status: DNR/DNI DVT ppx: lovenox Held home meds: tadalafil Consults: orthopedic surgery Dispo: med/surg Sepsis acute organ dysfunction status: unspecified Sepsis type: sepsis due to unspecified organism Qualified Code(s): A41.9 - Sepsis, unspecified organism Admission and Anticipated Discharge Date Admission Date: August 09, 2020 Supervising Attestation I personally examined the patient and verified all hardin points of history and exam, discussed case, and agree with decision making with Williams Mitchell MS4. Walked around well, pain overall under reasonable controldoes feel more pain this evening because he walked well with therapy and wonders if he overdid it. Otherwise no new complaints. Updated on plans, case discussed with orthopedics as well. Vitals noted, in general he is awake and alert pleasant no distress. HEENT normocephalic atraumatic mucous membranes are moist. Breathing unlabored no accessory muscle use good effort. Skin shows no rashes no pallor or icterus. Septic arthritis of the kneenow post washoutappreciate orthopedic input, continue antibiotics pending culture and sensitivitycertainly we can stop gram- negative coverage but will need to continue Dapto. Discussed with patient the overall plan for 6 weeks of IV antibioticsexact selection pending final culture and sensitivity. PT/OT eval and treat. Otherwise as above Subjective Had knee debridement and washout this morning and is feeling much better. He was able bear weight and walked around the hallways twice. Noticed some increased swelling afterwards, but pain is overall decreased. Denies fever/ chills, chest pain, nausea, vomiting, dysuria, or changes in BM. Review of Systems Review of Systems: see HPI Physical Exam Physical Exam: GENERAL: No acute distress, resting comfortably in bed. Well developed and well nourished. Vital signs reviewed as above. EYES: EOMI. Anicteric sclerae. HENT: Moist mucous membranes. RESPIRATORY: Clear to auscultation bilaterally. No wheezing, rales, or rhonchi. CARDIOVASCULAR: Regular rate and rhythm. No murmurs. ABDOMEN: Soft, non-tender and non-distended. Normal bowel sounds. EXTREMITIES: R knee moderate pain, wrapped in atul bandage s/p surgical debridement. SKIN: Warm, dry. NEUROLOGIC: A/O x3. No focal neurological deficits. PSYCHIATRIC: Cooperative. Appropriate mood and affect. Results & Data ([facility]) Vital Signs (Past 12 Hours) Vital Signs Temp Pulse Pulse Resp BP Pulse Ox 08/12/20 11:09 36.7 C 81 18 115/74 97 08/12/20 07:38 36.7 C 50 L 20 156/76 H 97 08/12/20 07:28 48 L 08/12/20 04:19 36.5 C 64 18 157/78 H 97
[2020-08-12] MEDS: INSULIN ASPART 100 UNITS/ML 3 ML PEN SC SCH ×2 (17:05→21:46)
--- NOTE | 2020-08-12 17:35 | Billing Data ---
Date of Service August 12, 2020 Coding Level of Care Code 19051 Subseq Hosp Care Lvl 3
--- NOTE | 2020-08-12 17:54 | Orthopedic Progress Note ---
Date of Service August 12, 2020 Assessment & Plan (1) Infection of total right knee replacement: POD 1 s/p I/D Right TKA PT/OT protocols. WBAT. Discussed with patient to not overdo ambulation early on. DVT prophylaxis - Rivaroxiban, SCD's Pain management as written Continue IV antibx. Await cx results. Pt will need 6 weeks of IV antibx. Plan for dressing change tomorrow. Possible dc hemovac depending on amount of drainage. Admission and Anticipated Discharge Date Admission Date: August 09, 2020 Subjective POD 1 Pt sitting up in bed. States he's feeling better since having the surgery. Increased pain today after walking 4 laps around the hallways. Pain medication helping. No new complaints. Physical Exam 2 Physical Exam: Dressings C/D/I. Calves soft, NT. NV intact. Hemovac present and functioning. Toes mobile. Able to do SLR. Good DF/PF of the right foot. Results & Data ([facility]) Vital Signs (Past 12 Hours) Vital Signs Temp Pulse Pulse Resp BP Pulse Ox 08/12/20 16:17 65 08/12/20 15:22 36.9 C 61 18 171/84 H 98 08/12/20 11:09 36.7 C 81 18 115/74 97 08/12/20 07:38 36.7 C 50 L 20 156/76 H 97 08/12/20 07:28 48 L Laboratory Results Laboratory Results WBC 6.64 K/uL (4.8-10.8) 08/12/20 07:24 RBC 3.92 M/uL (4.7-6.1) L 08/12/20 07:24 Hgb 12.2 g/dL (14.0-18.0) L 08/12/20 07:24 Hct 34.6 % (42-52) L 08/12/20 07:24 MCV 88.3 fL (80-100) 08/12/20 07:24 MCH 31.1 pg (25-34) 08/12/20 07:24 MCHC 35.3 g/dL (32-36) 08/12/20 07:24 RDW Std Deviation 41.4 fL (36.4-46.3) 08/12/20 07:24 RDW Coeff of [place] 12.8 % (11.5-14.5) 08/12/20 07:24 Plt Count 176 K/uL (130-400) 08/12/20 07:24 MPV 10.0 fL (7.4-10.4) 08/12/20 07:24 Immature Gran % (Auto) 0.2 % 08/11/20 07:45 Neut % (Auto) 77.6 % 08/11/20 07:45 Lymph % (Auto) 10.1 % 08/11/20 07:45 [place] % (Auto) 10.2 % 08/11/20 07:45 Eos % (Auto) 1.7 % 08/11/20 07:45 Baso % (Auto) 0.2 % 08/11/20 07:45 Neut # (Auto) 6.88 K/uL (1.4-6.5) H 08/11/20 07:45 Lymph # (Auto) 0.90 K/uL (1.2-3.4) L 08/11/20 07:45 [place] # (Auto) 0.91 K/uL (0.11-0.59) H 08/11/20 07:45 Eos # (Auto) 0.15 K/uL (0-0.5) 08/11/20 07:45 Baso # (Auto) 0.02 K/uL (0-0.2) 08/11/20 07:45 Immature Gran # (Auto) 0.02 K/uL (0.00-0.02) 08/11/20 07:45 Absolute Nucleated RBC 0.00 K/uL (0-0) 08/09/20 19:33 Nucleated RBC % (auto) 0.0 % 08/09/20 19:33 RBC Morphology Unremarkable 08/09/20 19:33 PT 11.4 Seconds (9.0-12.0) 08/09/20 19:33 INR 1.1 (0.9-1.1) 08/09/20 19:33 APTT 26.0 Seconds (21.0-31.0) 08/09/20 19:33 PTT Ratio 1.0 08/09/20 19:33 Sodium 137 mmol/L (136-145) 08/12/20 07:24 Potassium 4.3 mmol/L (3.5-5.1) D 08/12/20 07:24 Chloride 108 mmol/L (98-107) H 08/12/20 07:24 Carbon Dioxide 25 mmol/L (21-32) 08/12/20 07:24 Anion Gap 4.0 (3-11) 08/12/20 07:24 BUN 19 mg/dl (7-18) H D 08/12/20 07:24 Creatinine 0.69 mg/dl (0.6-1.4) 08/12/20 07:24 Est Cr Clr Drug Dosing 142.0 ml/min 08/12/20 07:24 Est GFR ( Amer) 121.3 ml/min 08/12/20 07:24 Est GFR (Non-Af Amer) 104.6 ml/min 08/12/20 07:24 BUN/Creatinine Ratio 27.4 (10-20) H 08/12/20 07:24 Glucose 240 mg/dl (70-99) H 08/12/20 07:24 POC Glucose 166 mg/dl (70-99) H 08/12/20 16:21 Lactate 1.4 mmol/L (0.4-2.0) 08/09/20 19:33 Calcium 8.6 mg/dl (8.5-10.1) 08/12/20 07:24 Magnesium 2.4 mg/dl (1.8-2.4) 08/09/20 19:33 Total Bilirubin 1.6 mg/dl (0.2-1) H 08/09/20 19:33 AST 9 U/L (15-37) L 08/09/20 19:33 ALT 31 U/L (12-78) 08/09/20 19:33 Alkaline Phosphatase 94 U/L (45-117) 08/09/20 19:33 Troponin I < 0.015 ng/ml (0-0.045) 08/09/20 19:33 C-Reactive Protein 20.80 mg/dl (0-0.29) H 08/09/20 19:33 Total Protein 7.1 gm/dl (6.4-8.2) 08/09/20 19:33 Albumin 3.4 gm/dl (3.4-5.0) 08/09/20 19:33 Globulin 3.7 gm/dl (2.5-4.0) 08/09/20 19:33 Albumin/Globulin Ratio 0.9 (0.9-2) 08/09/20 19:33 Procalcitonin 0.84 ng/ml (0-0.5) H 08/09/20 19:33 Urine Color Dark Yellow 08/09/20 20:38 Urine Appearance Clear (Clear) 08/09/20 20:38 Urine pH 6.5 (4.5-7.5) 08/09/20 20:38 Ur Specific [place] 1.019 (1.000-1.030) 08/09/20 20:38 Urine Protein 1+ (Negative) H 08/09/20 20:38 Urine Glucose (UA) Negative (Negative) 08/09/20 20:38 Urine Ketones Trace (Negative) H 08/09/20 20:38 Urine Blood Negative (Negative) 08/09/20 20:38 Urine Nitrite Negative (Negative) 08/09/20 20:38 Urine Bilirubin 1+ (Negative) H 08/09/20 20:38 Urine Urobilinogen Negative (Negative) 08/09/20 20:38 Ur Leukocyte Esterase Negative (Negative) 08/09/20 20:38 Urine WBC (Auto) 10-30 /hpf (0-5) H 08/09/20 20:38 Urine RBC (Auto) 0-4 /hpf (0-4) 08/09/20 20:38 U Hyaline Cast (Auto) 0 /lpf (0-5) 08/09/20 20:38 U Epithel Cells (Auto) >30 /lpf (0-5) H 08/09/20 20:38 Urine Bacteria (Auto) Negative (Negative) 08/09/20 20:38 Ur Renal Epithelial Cell Not Reportable 08/09/20 20:38 Urine Mucus Present (None Prsent) A 08/09/20 20:38 Fluid Comment 08/10/20 14:00 Synovial Source KNEE 08/10/20 14:00 Synovial Color RED 08/10/20 14:00 Synovial Appearance BLOODY 08/10/20 14:00 Synovial WBC 51900 /ul (0-200) H 08/10/20 14:00 Synovial RBC 238661 /uL 08/10/20 14:00 Synovial Polynuclear % 98.0 % 08/10/20 14:00 Synovial Mononuclear % 2.0 % 08/10/20 14:00 Synovial Crystals 08/10/20 14:00 Vancomycin Trough 6.6 mcg/ml (See Comment) 08/11/20 19:39 Vancomycin Trough Cancelled 08/11/20 19:39 Anaplasma Smear See Comment 08/09/20 19:33 Lyme Disease IgG Ab Negative (Negative) 08/09/20 19:33 Lyme Disease IgM Ab Negative (Negative) 08/09/20 19:33 COVID-19 Eval Order Covid19 at [facility] 08/09/20 20:41 SARS-CoV-2 (PCR) NEGATIVE (Negative) 08/09/20 20:41 Impressions Knee X-Ray 08/11/20 17:34 TWO VIEWS RIGHT KNEE CLINICAL HISTORY: Postoperative examination. FINDINGS: AP and crosstable lateral portable views of the right knee are obtained. A right knee arthroplasty is in near anatomic alignment. There has been undersurface remodeling of the patella. No acute fracture is seen. There are expected postoperative changes around the knee including skin clips, a surgical drain, soft tissue edema, and subcutaneous gas. Antibiotic implants are in place. IMPRESSION: Expected postoperative changes status post right knee arthroplasty. No acute fracture is seen. ACT 112: Negative or not required by law. Electronically signed by: Mike Alonso M.D. 08/11/2020 5:51 PM
[2020-08-12] MEDS ORDERED: VANCOMYCIN TROUGH ONE (20:30)
[2020-08-12] MEDS: ATORVASTATIN 20 MG TAB PO SCH (21:15)
[2020-08-12] MEDS: SENNA 8.6 MG TAB PO SCH (21:15)
[2020-08-12] MEDS: guanFACINE HCL 1 MG TAB PO SCH (21:15)
[2020-08-12] MEDS: PANTOprazole 40 MG TAB PO SCH (21:16)
[2020-08-12] MEDS: amLODIPine BESYLATE 5 MG TAB PO SCH (21:16)
[2020-08-12] MEDS: lisinopril 40 MG TAB PO SCH (21:17)
--- NOTE | 2020-08-12 22:03 | Pharmacy Report ---
Pharmacy Abx Dose Short Note - Date of Service August 12, 2020 - Assessment & Plan Assessment 60 year old M receiving Vancomycin for treatment of prosthetic joint infection Day # 4 of antimicrobial therapy. Plan Laboratory Tests 08/12/20 20:50 Vancomycin Trough 13.4 Vancomycin * Trough level is 13.4 mcg/mL * Continue dose of 1500 mg IV every 8 hours Pharmacy will continue to follow and will adjust dose/frequency as necessary. Thank you.
[2020-08-12] MEDS: ACETAMINOPHEN 1,000 MG/100 ML VIAL IV PRN (23:59)
[2020-08-13] MEDS: VANCOMYCIN HCL 1,500 MG in SODIUM CHLORIDE 0.9% 500 ML IV SCH (04:47)
[2020-08-13] MEDS: NSS + 20MEQ KCL 20 MEQ/1,000 ML BAG IV SCH ×2 (05:36→15:10)
[2020-08-13 06:04] LABS: Estimated Average Glucose 128 mg/dl; Hemoglobin A1C 6.1 % (4.5-5.6)
[2020-08-13 07:36] LABS: Lyme DNA PCR CSF or Synovial Not detected (Not Detected); Lyme DNA Source Synovial Fluid
[2020-08-13 08:10] LABS: Est GFR (African American) 125.1 ml/min; Est GFR (Non-African American) 107.9 ml/min
[2020-08-13] MEDS: INSULIN ASPART 100 UNITS/ML 3 ML PEN SC SCH ×4 (09:25→21:43)
[2020-08-13] MEDS: DOCUSATE SODIUM 100 MG CAP PO SCH ×2 (09:28→20:12)
[2020-08-13] MEDS: POTASSIUM CHLORIDE CRTAB 20 MEQ TABCR PO SCH ×2 (09:28→20:12)
[2020-08-13] MEDS: hydroCHLOROthiazide 25 MG TAB PO SCH (09:29)
[2020-08-13] MEDS: MULTIVITAMIN TAB PO SCH (09:29)
[2020-08-13] MEDS: PSYLLIUM 58.6% POWDER PACKET PO SCH (09:30)
[2020-08-13] MEDS: carvediloL 12.5 MG TAB PO SCH ×2 (09:30→20:13)
[2020-08-13] MEDS: RIVAROXABAN 10 MG TABLET PO SCH (09:30)
[2020-08-13] MEDS: oxyCODONE HCL IR 5 MG TAB (IMMEDIATE RELEASE) PO PRN ×3 (12:47→22:19)
--- NOTE | 2020-08-13 13:18 | Orthopedic Progress Note ---
Date of Service August 13, 2020 Assessment & Plan (1) Infection of total right knee replacement: POD 2 s/p I/D Right TKA PT/OT protocols. WBAT. Discussed with patient to not overdo ambulation early on. DVT prophylaxis - Rivaroxiban, SCD's Pain management as written Continue IV antibx. Final cultures pending. Alpha strep noted on intraoperative culture preliminary. Pt will need 6 weeks of IV antibx. We will discuss current Hemovac drain with Dr. Shafer. Plan will be to either pull the drain today versus send the patient home with the drain and have home health services pull the drain in the next day or so. DC planning-planning for home health services and IV antibiotics. Admission and Anticipated Discharge Date Admission Date: August 09, 2020 Subjective Postop day 2 Patient currently lying in bed awake and alert. He states he just finished physical therapy little while ago and is having some pain. He has taken some oral pain medication. No other complaints. Denies shortness of breath, chest pain, lightheadedness. Physical Exam Physical Exam: Dressing removed. Jake dressing is intact. Small amount of drainage noted on the distal aspect. Hemovac drain left in secondary to continued drainage. The knee is swollen consistent with surgery. Calves are soft and nontender. Neurovascular intact. Toes are mobile. Results & Data ([facility]) Vital Signs (Past 12 Hours) Vital Signs Temp Pulse Pulse Resp BP Pulse Ox 08/13/20 08:00 57 L 08/13/20 07:30 36.9 C 60 18 171/84 H 96 08/13/20 03:13 36.7 C 57 L 18 172/88 H 97
[2020-08-13] MEDS: DAPTOmycin 600 MG in SYRINGE 0 ML IV SCH (17:49)
--- NOTE | 2020-08-13 18:08 | Medical Student Progress Note ---
Date of Service August 13, 2020 Assessment & Plan (1) Sepsis: 60yo male with a history of total right knee replacement and left chronic ACL tear presents with a one-day history of fever, chills, right knee pain and swelling, and reduced right knee ROM concerning for prosthetic joint infection. Right Prosthetic Knee Joint INfection - Febrile on admission (Tmax 38.6), leukocytosis; no tachycardia or tachypnea, elevated inflammatory markers - Likely secondary to right prosthetic joint infection, no other obvious source of infection - UA neg, CXR without acute process, no rash, no diarrhea, no AMS, Lyme negative - Blood cultures w/ no growth after 24 hours - Ortho consulted, performed bedside aspiration of knee (08/10) and washout (08/12) - Joint fluid 08/10 alpha strep, 08/11 staph species - Recommendations from ortho appreciated - Cultures grew alpha step and coag negative staph. Begin Daptomycin - PICC line placed - Discontinued vancomycin 08/13 - Discontinued cefepime IV 08/11 - Lovenox discontinued 08/10 in preparation for OR - Continue IV fluids - Trend CBC Hypokalemia - K at 3.0 on admission, etiology unclear - Repleted orally, increased to 4.3 08/12 HTN - Continue home meds DM2 - Patient's DM2 is diet-controlled; A1c 6.0% in 10/10 - DM2 diet Left chronic ACL tear - No treatment indicated at this time HLD - Continue home atorvastatin FEN: DM2 diet Code status: DNR/DNI DVT ppx: lovenox Held home meds: tadalafil Consults: orthopedic surgery Dispo: med/surg Sepsis acute organ dysfunction status: unspecified Sepsis type: sepsis due to unspecified organism Qualified Code(s): A41.9 - Sepsis, unspecified organism Admission and Anticipated Discharge Date Admission Date: August 09, 2020 Supervising Attestation I personally examined the patient and verified all hardin points of history and exam, discussed case, and agree with decision making with Williams Mitchell MS4. Overall doing better. Discussed planconsented for PICC line placement. Case management working on home IV antibiotics. Vitals noted, in general he is awake and alert pleasant no distress. HEENT normocephalic atraumatic mucous membranes are moist. Breathing unlabored no accessory muscle use good effort. Skin shows no rashes no pallor or icterus. Knee wrapped in large dressing. Septic arthritis of the kneenow post washoutappreciate orthopedic input, given cultures, anticipate home on daptomycin. PICC line in, working on getting this set up for home. Otherwise as above. Subjective Currently post-op day 2. He has been feeling well, but is a little more swollen and painful since pushing himself to walk a lot yesterday. He is able to bend his knee and ambulate. Drain present and draining serosanguineous fluid. Denies fever/chills, chest pain, or abdominal pain Review of Systems Review of Systems: see HPI Physical Exam Physical Exam: GENERAL: No acute distress, resting comfortably in bed. Well developed and well nourished. Vital signs reviewed as above. EYES: EOMI. Anicteric sclerae. HENT: Moist mucous membranes. RESPIRATORY: Clear to auscultation bilaterally. No wheezing, rales, or rhonchi. CARDIOVASCULAR: Regular rate and rhythm. No murmurs. ABDOMEN: Soft, non-tender and non-distended. Normal bowel sounds. EXTREMITIES: R knee moderate pain, wrapped in atul bandage s/p surgical debridement. SKIN: Warm, dry. NEUROLOGIC: A/O x3. No focal neurological deficits. PSYCHIATRIC: Cooperative. Appropriate mood and affect. Results & Data ([facility]) Vital Signs (Past 12 Hours) Vital Signs Temp Pulse Pulse Resp BP Pulse Ox 08/13/20 15:07 36.6 C 50 L 18 167/87 H 98 08/13/20 08:00 57 L 08/13/20 07:30 36.9 C 60 18 171/84 H 96
--- NOTE | 2020-08-13 18:24 | Billing Data ---
Date of Service August 13, 2020 Coding Level of Care Code 95021 Subseq Hosp Care Lvl 3
[2020-08-13] MEDS: SENNA 8.6 MG TAB PO SCH (20:11)
[2020-08-13] MEDS: guanFACINE HCL 1 MG TAB PO SCH (20:11)
[2020-08-13] MEDS: lisinopril 40 MG TAB PO SCH (20:14)
[2020-08-13] MEDS: PANTOprazole 40 MG TAB PO SCH (20:14)
[2020-08-13] MEDS: amLODIPine BESYLATE 5 MG TAB PO SCH (20:15)
[2020-08-13] MEDS: ATORVASTATIN 20 MG TAB PO SCH (20:15)
[2020-08-14] MEDS: oxyCODONE HCL IR 5 MG TAB (IMMEDIATE RELEASE) PO PRN ×3 (04:34→20:55)
[2020-08-14 06:27] LABS: BUN Creatinine Ratio 17.7 (10-20); Calcium 8.9 mg/dl (8.5-10.1); Creatinine Clr Calc Pharmacy 127.1 ml/min; Est GFR (African American) 117.8 ml/min; Est GFR (Non-African American) 101.7 ml/min; Potassium 3.9 mmol/L (3.5-5.1)
[2020-08-14] MEDS: PSYLLIUM 58.6% POWDER PACKET PO SCH (07:27)
[2020-08-14] MEDS: RIVAROXABAN 10 MG TABLET PO SCH (07:27)
[2020-08-14] MEDS: POTASSIUM CHLORIDE CRTAB 20 MEQ TABCR PO SCH (07:27)
[2020-08-14] MEDS: MULTIVITAMIN TAB PO SCH (07:28)
[2020-08-14] MEDS: hydroCHLOROthiazide 25 MG TAB PO SCH (07:28)
[2020-08-14] MEDS: carvediloL 12.5 MG TAB PO SCH (07:28)
[2020-08-14] MEDS: DOCUSATE SODIUM 100 MG CAP PO SCH (07:28)
[2020-08-14] MEDS: INSULIN ASPART 100 UNITS/ML 3 ML PEN SC SCH ×3 (08:44→17:07)
--- NOTE | 2020-08-14 12:22 | Orthopedic Progress Note ---
Date of Service August 14, 2020 Assessment & Plan (1) Infection of total right knee replacement: POD 3 s/p I/D Right TKA PT/OT protocols. WBAT. Discussed with patient to not overdo ambulation early on. DVT prophylaxis - Rivaroxiban, SCD's Pain management as written Continue IV antibx. Final cultures pending. Alpha strep noted on intraoperative culture preliminary. Pt will need 6 weeks of IV antibx. Planning for discharge to home today. Instructions placed in the DC section. DC planning-planning for home health services and IV antibiotics. Admission and Anticipated Discharge Date Admission Date: August 09, 2020 Subjective Postop day 3 Patient finishing his lunch when entering the room. States that he feels that the knee is feeling better today. He had one episode where the knee felt like it was giving out on him during ambulation when he got out of bed however it was split second and only a slight amount of discomfort that disappeared quickly. Has not happened again. We discussed that if he continued to have this problem, that we would consider an immobilizer. No other complaints at this time. Denies shortness of breath, chest pain, lightheadedness. He states that plans are for him to go home today later this afternoon. Physical Exam Physical Exam: Jake wound VAC is currently on. Patient states that it was alarming earlier. Checked the connection and some of the edges of the wound VAC which appear to be intact. Restarted the wound VAC and was stating that it was functioning properly however it was generating suction multiple times rather than just stopping. The amount of drainage he has on the distal portion of the incision is the same and has not really gotten bigger. It appears more dry at this point in time. He appears to have less swelling in the knee today. Calves are soft and nontender. Neurovascular is intact. Toes are mobile. Hemovac drain has been removed. Results & Data ([facility]) Vital Signs (Past 12 Hours) Vital Signs Temp Pulse Pulse Resp BP Pulse Ox 08/14/20 11:18 37.1 C 69 18 143/91 H 95 08/14/20 07:33 36.8 C 69 18 139/82 92 08/14/20 04:17 48 L 160/80 H 08/14/20 03:12 36.8 C 50 L 18 165/95 H 94 08/14/20 01:47 58 L
[2020-08-14] MEDS: DAPTOmycin 600 MG in SYRINGE 0 ML IV SCH (15:29)
--- NOTE | 2020-08-14 17:30 | Med Student Discharge Summary ---
Date of Service August 14, 2020 Admission HPI Per Admitting Provider Mr. John is a 60 yo gentleman who presents for evaluation of R knee pain, stiffness and swelling of two days duration. Of note, he [place] [address] [place] [facility] [place] first noticed increased stiffness of the R knee when driving home from work evening. The knee became progressively painful, causing him to drive with his left foot. When he got home, he realized the R knee was quite swollen; it was warm to the touch, but did not turn red in color. He iced it and took Tylenol, however he ultimately came in for evaluation as his symptoms have not improved since onset. He denies any recent trauma to the R knee - although several weeks ago he does recall hitting it off his workshop bench. He reports fever and chills, generalized weakness, a diminished appetite, some numbness and tingling of the R lower extremity, and some burning with urination. No cough, nasal congestion, nausea/vomiting, diarrhea. He denies any sick contacts. No tick bites this spring or summer. He has not had the COVID 19 vaccine. In the ED he was febrile to 38.6. His WBC was mildly elevated to 13, CRP was 20, Procal was mildly elevated 0.84. Lyme neg. Anaplasma DNA pending. UA ordered. CXR was negative. XR knee showing soft tissue edema, but no fractures or dislocations. He was given a dose of IV cefepime and Daptomycin along with 1liter of NSS + 40meQ KCl. Orthopedics were contacted and requested the patient be admitted to the medicine team. Admission Exam (Per Admitting) Constitutional Constitutional: WD/WN, vitals as above + acute distress (mild secondary to pain) and cooperative Eyes: + anicteric sclerae ENMT: external ear and nose normal, oropharynx normal Neck: trachea midline, no thyromegaly Respiratory: normal respiratory effort, lungs clear to auscultation Cardiovascular: RRR, no murmur, no edema Heart Sounds: normal S1 and normal S2 Gastrointestinal (Abdomen): normal bowel sounds, soft, nontender, no hepatosplenomegaly Musculoskeletal: Knee: + effusion (+ R knee. R knee warm to the touch); no skin erythema Skin: no rashes, warm and dry Neurologic: Motor/Sensory: no sensory deficit Psychiatric: A+Ox3, euthymic affect Discharge Data Consultations 08/09/20 21:25 ED Decision to Admit Stat 08/09/20 21:46 Consult Orthopedic Surgery Routine Procedures Performed Operation Date: 08/11/20 08:00 Actual Procedures p Open irrigation and debridement right total knee , extensive electrocautery synovectomy with excision scarred synovial tissue, application of stimulan beads and closure over drains and application superficial wound vacuum assisted closure, right knee(Right) - Manoj Shafer MD Hospital Course (1) Sepsis: 60yo male with a history of total right knee replacement and left chronic ACL tear presents with a one-day history of fever, chills, right knee pain and swelling, and reduced right knee ROM concerning for prosthetic joint infection. Right Prosthetic Knee Joint INfection - Febrile on admission (Tmax 38.6), leukocytosis; no tachycardia or tachypnea, elevated inflammatory markers - UA neg, CXR without acute process, no rash, no diarrhea, no AMS, Lyme negative - Blood cultures w/ no growth after 24 hours - Ortho performed bedside aspiration of knee (08/10) and washout (08/12) - Joint fluid 08/10 alpha strep, 08/11 staph species - Cultures grew alpha step and coag negative staph. - PICC line placed 08/13 - ON admission started on vancomycin and cefepime. Cefepime discontinued 08/11 - IV antibiotics changed from vancomycin to daptomycin 08/13 -plan to continue daptomycin for 6 weeks - patient will need weekly CPK, CBC, BMP- orders placed - during treatment with daptomycin will hold statin - Xarelto order after surgery- medication prescribed and sent to pharmacy - Home PT/OT ordered per ortho - Outpatient followup with ortho as scheduled Hypokalemia - K at 3.0 on admission, etiology unclear - Repleted orally, increased to 4.3 08/12 HTN - Continue home meds DM2 - Patient's DM2 is diet-controlled; A1c 6.0% in 10/10 Left chronic ACL tear - No treatment indicated at this time HLD - Hold home atorvastatin during treatment with daptomycin Discharge Plan Discharge Items Patient Disposition: Home - Home Health Services Reason For Visit: PROSETHIC JOINT INFECTION Discharge Diagnosis: Right TKA infection Activity: Per Instructions section Weightbearing: Right weightbearing Weightbearing Comment: As tolerated with walker. Limit activities the first week. Then increase Non-emergency contact: Primary Care Provider and Surgeon Call non-emergency contact if: your pain is not controlled, your temperature is above 101.5, your wound has increased redness and your wound has increased drainage Follow-up/Referrals: Dominik Concepcion DO [Primary Care Provider] - Manoj Shafer MD [Surgeon] - (Follow up in 10-14 days from the day of surgery. ) Diet: Regular Addtl Attending Provider Instructions: Mr. John, It was our pleasure to care for you at [facility] from 08/09/20 to 08/14/20. You were admitted for an infection in the prosthetic joint of your right knee. You underwent surgery to wash out the infection (more information is noted below). You have done well and at this point it is safe for you to be discharged home. Home health will be helping you with IV antibiotics - daptomycin, which you will have once a day. You have a PICC line in the right arm and this is what you will use for the IV antibiotics - make sure to complete the full 6 week treatment with IV antibiotics. You will need close follow up with the surgeon and your primary care provider. Important to NOTE: Please HOLD your home ATORVASTATIN while using the IV antibiotics. You will need blood work once a week while during the course of the daptomycin IV antibiotic therapy. These are CPK, CBC, and BMP. And order has been placed for these to be done weekly. Please discuss the labs with your home health nurse. Please follow up with your primary care doctor in 2-3 days. Call with any questions! See below for more information. 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 YOU WILL NEED TO CONTINUE PT WHEN YOUR ARE HOME. 1. HOME HEALTH THERAPY - GENTLE ROM PROTOCOL. 2. Continue working on all exercises taught to you in the hospital. Your goals should be to increase bending of your knee to 90 degrees and beyond and to fully straighten your knee. B. You may progress at your own pace from walking with a walker or crutches to a cane; then to no assistive devices. C. Make walking a part of your daily routine. Be up as much as comfortable wi th rest periods throughout the day. Rest with leg elevation is very important. Use the ice wrap frequently for the first 3-4 weeks. D. There are no restrictions on activities. You may ride in a car, shop, participate in professor of genetics and all social activities. E. Wear the long elastic stockings (GOYO hose) 20 hours a day for 2 weeks after surgery. They can be removed several times a day for laundering and for a bath. F. You may shower, no tub baths until cleared by your doctor. SPECIAL CARE INSTRUCTIONS: VERY IMPORTANT TO READ AND REVIEW A. There are a few signs you need to watch for after you are home. Call [facility] if you notice any of the followin. Increased severe knee pain. Some pain is expected especially when you exercise. 2. Increased swelling in your leg or knee; pain or swelling of the calf muscle in either lower leg. 3. Any fluid drainage from the incision. 4. Shortness of breath or chest pain. B. Please call [facility] at if you have any concerns or questions about your operation or recovery. The doctor or his nurse will return your call promptly. C. You must take antibiotics before dental work, bladder, bowel or other surgery. Your doctor will provide you with a permanent care to carry describing this precaution. IMPORTANT: * CONTINUE RIVAROXIBAN DAILY. * CALL IF INCREASED PAIN, REDNESS, DRAINAGE OR FEVER GREATER THAT 101. * WEAR GOYO HOSE 20 HOURS PER DAY FOR 2 WEEKS. * GISSELLE Dressing - This is a large suction dressing covering your incision. This will help pull any excess drainage from the wound and allow your incision to heal properly. You may shower with this if you can keep the unit outside of the shower. If any bleeding or leakage is noted please call your doctor's offi ce. This will remain on your incision for 7 days and then should be removed. This can be done yourself or by the home nursing staff if applicable. The entire unit is disposable once removed. Once removed, keep incision clean and dry. If redness or drainage is noted, please call your surgeon. . FOLLOW UP VISIT: If appointment is not already scheduled: Please call [facility] to make a follow-up appointment for [address] Shafer within 14 days from the day of your surgery at . Pending Studies at Discharge: No Stand-Alone Forms: My [facility], Smoking Cessation Medications and DC Order Prescriptions: New Xarelto 10 mg Tablet 10 mg PO DAILY 30 Days Qty: 30 RF: 0 oxycodone-acetaminophen [Percocet] 5-325 mg tablet 1 tab PO TID PRN (Reason: pain) Qty: 14 RF: 0 Continued potassium chloride 20 mEq tablet extended release 40 meq PO BID Qty: 360 RF: 1 pantoprazole 40 mg tablet,delayed release (DR/EC) 40 mg PO HS Qty: 90 RF: 1 amlodipine 10 mg tablet 10 mg PO HS Qty: 90 RF: 1 guanfacine 2 mg tablet 2 mg PO HS Qty: 90 RF: 1 lisinopril 40 mg tablet 40 mg PO HS Qty: 90 RF: 1 carvedilol 12.5 mg tablet 12.5 mg PO BID Qty: 180 RF: 1 tadalafil 5 mg tablet 20 mg PO ONCE PRN (Reason: sexual activity) Qty: 30 RF: 11 multivitamin with minerals tablet 1 tab PO HS RF: 0 acetaminophen 500 mg tablet 500 mg PO DAILY PRN (Reason: Pain) RF: 0 hydrochlorothiazide 25 mg tablet 25 mg PO QAM RF: 0 Metamucil 3.4 gram/5.4 gram Powder 1 tbsp PO HS RF: 0 tramadol 50 mg tablet 50 mg PO Q6H PRN (Reason: pain, moderate) Qty: 20 RF: 0 Discontinued atorvastatin 20 mg tablet 20 mg PO HS RF: 0 Discharge Orders: Discharge Order (Routine); Ordered 08/14/20 Ordered By: Aaron Lambert/Other Patient Handouts: 5 Steps for Eating Healthier, A1C Admission Data Admit Date/Time: 08/09/20 22:34 Attending Provider: Aaron Mcfarland Admit Provider: Leonila Koroma Primary Care Provider: Dominik Concepcion Other Providers: Sukhdeep Bennett ; Omari Card ; Chuck Kennedy Supervising Attestation I personally examined the patient and verified all hardin points of history and exam, discussed case, and agree with decision making with Williams Mitchell MS4. Overall continues to do better. PICC line in. Ready to go home. IV antibiotics set up for home. Vitals noted, in general he is awake and alert pleasant no distress. HEENT normocephalic atraumatic mucous membranes are moist. Breathing unlabored no accessory muscle use good effort. Skin shows no rashes no pallor or icterus. Knee wrapped in large dressing. Septic arthritis of the kneenow post washoutappreciate orthopedic input, given cultures, anticipate home on daptomycin (discussed by R1 with multiple clinical pharmacist, and we discussed different antibiotic options at length, concluding that daptomycin would be the most likely to cover both the staph and strep, as well as be most effective). stable for home otherwise as above
--- NOTE | 2020-08-14 18:11 | Billing Data ---
Date of Service August 14, 2020 Coding Level of Care Code D/C Day Management <30 mins
== END 2020-08-14 21:28 | disposition home health service (06) | DRG 485 ==
LOC: ED 18:40 → 2N 22:34 → SUATTDRO 22:34 → 2N 23:40

== ENCOUNTER 2021-07-15 06:31 | Observation (INO) ==
--- NOTE | 2021-06-23 09:29 | PAT Medication Instructions ---
Medication Instructions Date of Service June 23, 2021 Home Medications Medication Instructions Recorded Saccharomyces boulardii 250 mg 250 mg PO BID #60 cap 08/26/20 capsule (Florastor) hydrochlorothiazide 25 mg tablet 25 mg PO QAM #90 tab 08/26/20 potassium chloride 20 mEq 40 meq PO BID #360 tab 08/26/20 tablet,extended release cefadroxil 500 mg capsule 500 mg PO BID #60 cap 11/19/20 pantoprazole 40 mg tablet,delayed See Rx Instructions .ROUTE 01/06/21 release .COMPLEX #90 tab amlodipine 10 mg tablet See Rx Instructions .ROUTE 04/27/21 .COMPLEX #90 tab guanfacine 2 mg tablet 2 mg PO HS #90 tab 05/29/21 carvedilol 25 mg tablet 25 mg PO BID #60 tab 06/10/21 lisinopril 40 mg tablet 40 mg PO HS #90 tab 06/22/21 multivitamin with minerals 1 tab PO QAM acetaminophen 500 mg tablet 500 mg PO DAILY PRN psyllium husk 3.4 gram/5.4 gram oral powder (Metamucil) 1 tbsp PO HS Saccharomyces boulardii 250 mg capsule (Florastor) 250 mg PO BID hydrochlorothiazide 25 mg tablet 25 mg PO QAM potassium chloride 20 mEq tablet,extended release 40 meq PO BID tamsulosin 0.4 mg capsule 0.4 mg PO HS cefadroxil 500 mg capsule 500 mg PO BID pantoprazole 40 mg tablet,delayed release See Rx Instructions .ROUTE .COMPLEX amlodipine 10 mg tablet See Rx Instructions .ROUTE .COMPLEX guanfacine 2 mg tablet 2 mg PO HS carvedilol 25 mg tablet 25 mg PO BID lisinopril 40 mg tablet 40 mg PO HS ibuprofen 200 mg tablet 400 mg PO TID ASK your surgeon for instructions ibuprofen 200 mg tablet 400 mg PO TID DO NOT take the morning of surgery multivitamin with minerals 1 tab PO QAM Saccharomyces boulardii 250 mg capsule (Florastor) 250 mg PO BID hydrochlorothiazide 25 mg tablet 25 mg PO QAM potassium chloride 20 mEq tablet,extended release 40 meq PO BID Take morning of surgery With a small sip of water, OTHERWISE NOTHING TO EAT OR DRINK AFTER MIDNIGHT: acetaminophen 500 mg tablet 500 mg PO DAILY PRN (okay to take up to 4 hours prior to surgery if needed) cefadroxil 500 mg capsule 500 mg PO BID carvedilol 25 mg tablet 25 mg PO BID Take evening before surgery acetaminophen 500 mg tablet 500 mg PO DAILY PRN (if needed) psyllium husk 3.4 gram/5.4 gram oral powder (Metamucil) 1 tbsp PO HS Saccharomyces boulardii 250 mg capsule (Florastor) 250 mg PO BID potassium chloride 20 mEq tablet,extended release 40 meq PO BID tamsulosin 0.4 mg capsule 0.4 mg PO HS cefadroxil 500 mg capsule 500 mg PO BID pantoprazole 40 mg tablet,delayed release See Rx Instructions .ROUTE .COMPLEX amlodipine 10 mg tablet See Rx Instructions .ROUTE .COMPLEX guanfacine 2 mg tablet 2 mg PO HS carvedilol 25 mg tablet 25 mg PO BID lisinopril 40 mg tablet 40 mg PO HS Other Notes If you have any questions please call us at [phone] or [phone] or [phone] or [phone]
--- NOTE | 2021-06-25 13:27 | Anesthesiology Consultation ---
Date of Service June 25, 2021 Assessment & Plan (1) Encounter for pre-operative examination: Chart Review Chart Review: Acceptable Risk for Surgery (pending PCP clearance (07/07/21) and preop Covid testing results ) and Patient seen in Pre Admission Testing - Awaiting PCP clearance scheduled 07/07/21 - Check BSG AM DOS Per PAT appt on 06/24/21, patient denies any recent travel or large group activities. No known Covid positive exposures or Covid related symptoms. No known Covid infection in the past 90 days. Pt is NOT vaccinated for Covid. Preop Covid testing scheduled 07/13/21= will await results. Educated on importance of self quarantining, social distancing and wearing mask in public for the patient one week prior to surgery and after Covid testing done Pt seen by Infectious Disease 05/06/21= Patient with right knee TKA diagnosed w/ PJI of R knee s/p I&D ofR TKR with synovectomy and application of stimulant beads. HW was left behind(Unable to separate from the bone) and his joint fluid culture showed alpha Strep and OR cultures, SNA x 2 and alpha Strep.Patient was treated with IV daptomycin for 6 weeks and is currently on cefadroxil. Pt now experiencing left knee pain- interested in knee surgery. Pt on oral suppressive abx therapy (there still is a chance that his left knee could become infected - it less likely with him being suppressed on oral cefadroxil). Would recommend he continue oral abx and if his left knee surgery is clinically indicated he could proceed to have it done under the cover of abx. (Surgeon is aware per patient) Teaching & Discussion Pre-Anesthesia Teaching/Discussion Notes: Instructed NPO after midnight before surgery,except medications with 15 cc of water. Medication instructions provided according to the PAT guidelines. History Surgery Operation Date: 07/15/21 13:30 Proposed Procedures p Left Total Knee Arthroplasty - Manoj Shafer MD Height/Weight Height: 5 ft 11 in Weight: 95.1 kg Allergies Allergy/AdvReac Type Severity Reaction Status Date / Time celecoxib [From Celebrex] Allergy Intermediate Hives Verified 06/25/21 13:37 meloxicam Allergy Intermediate Itching Verified 06/25/21 13:37 eyes and neck Medications Home Medications Medication Instructions Recorded Confirmed Last Taken multivitamin with minerals 1 tab PO QAM tab 09/13/18 06/23/21 10/12/20 12:00 acetaminophen 500 mg tablet 500 mg PO DAILY PRN tab 12/13/18 06/23/21 10/12/20 23:30 psyllium husk 3.4 gram/5.4 gram 1 tbsp PO HS 10/30/19 06/23/21 10/12/20 23:30 oral powder (Metamucil) Saccharomyces boulardii 250 mg 250 mg PO BID #60 cap 08/26/20 06/23/21 10/12/20 23:30 capsule (Florastor) hydrochlorothiazide 25 mg tablet 25 mg PO QAM #90 tab 08/26/20 06/23/21 10/12/20 12:00 potassium chloride 20 mEq 40 meq PO BID #360 tab 08/26/20 06/23/21 10/12/20 22:30 tablet,extended release cefadroxil 500 mg capsule 500 mg PO BID #60 cap 11/19/20 06/23/21 Unknown pantoprazole 40 mg tablet,delayed See Rx Instructions .ROUTE 01/06/21 06/23/21 Unknown release .COMPLEX #90 tab amlodipine 10 mg tablet See Rx Instructions .ROUTE 04/27/21 06/23/21 Unknown .COMPLEX #90 tab guanfacine 2 mg tablet 2 mg PO HS #90 tab 05/29/21 06/23/21 Unknown carvedilol 25 mg tablet 25 mg PO BID #60 tab 06/10/21 06/23/21 Unknown lisinopril 40 mg tablet 40 mg PO HS #90 tab 06/22/21 06/23/21 Unknown celecoxib 100 mg capsule (Celebrex) 100 mg PO BID #60 cap 06/23/21 06/23/21 Unknown ibuprofen 200 mg tablet 400 mg PO TID 06/23/21 06/23/21 Unknown tamsulosin 0.4 mg capsule 0.8 mg PO HS #60 cap 06/23/21 06/23/21 Unknown Past Medical History Medical History (Updated 06/25/21 @ 13:57 by Mandy Wood PA-C) CAD (coronary artery disease) "Minor" CAD per 2015 cardiac cath Chronic radicular low back pain Degenerative disc disease GERD without esophagitis Well controlled and stable Hearing difficulty 70% hearing to right ear - s/p fall No hearing aids History of kidney stones No recent issues Hx of melanoma of skin S/p removal Hyperlipidemia Hypertension Infection of total right knee replacement S/p I&D (07/2020) (had infection to right knee- prior Right TKA (2012))- reason for daily cefadroxil (will be on chronically) Follows with I&D with [facility] Type 2 diabetes mellitus Diet controlled Exercise / Class Metabolic Activity II 4-5 Yardwork/Stairs/Walk up hill (one flight of stairs - no chest pain or SOB ) Past Family History Family History Mother Melanoma malignant Hypertension Father Cardiac disorder Myocardial infarction Hypertension Gallbladder disease Sister Graves disease Other No family history of adverse response to anesthesia Denies family history of Ovarian cancer Prostate cancer Breast cancer Colorectal cancer Past Surgical History Surgical History (Updated 06/25/21 @ 13:57 by Mandy Wood PA-C) H/O cardiac catheterization 2014- no stents H/O knee surgery right (multiple) History of colonoscopy History of cystoscopy Cystoscopy, bladder biopsies, bladder resection (10/13/20): MAC at [facility]. No issues per post-op anesthesia progress note. History of lithotripsy History of lumbar fusion L4-L5 decompression/fusion History of surgery right finger surgery History of tonsillectomy History of total knee arthroplasty Right (2012) Hx of melanoma excision PONV (postoperative nausea and vomiting) S/P epidural steroid injection S/P left knee arthroscopy S/P PICC central line placement removed S/P tympanoplasty right Status post incision and drainage Right knee I&D (08/11/20): LMA#5 at [facility]. No issues per post-op anesthesia progress note. Past Anesthesia History No Hx of Anesthesia Complications (with exception to PONV ) and No Family Hx of Anesthesia Complications History of PONV History of PONV (improved with IV anti-nausea medications ) and Hx of Motion Sickness Social History Smoking Status: Former smoker tobacco type: cigarettes Do You Dip or Chew Tobacco: No Smoking End Date: 2004 Hx Alcohol Use: No Hx Substance Use: No substance use type: does not use Review of Systems Hx of snoring- unknown re: witnessed apnea- no hx of sleep study Patient denies chest pain, shortness of breath, dyspnea on exertion, cough, wheezing, palpitations. No hx of seizures, stroke, [place]. No hx of blood clots or blood transfusions Physical Exam Vital Signs VITALS BP 162/80 (pt currently working with PCP to improve BP, checking BP at home) P 61 TEMP 98.3 SP02 98% RESP 16 Constitutional no acute distress ENMT Mouth: no TMJ clicking Thyromental Distance: > or= 3.5 Finger Breadths (3.5) Mallampati Class: II Neck + limited neck extension (mild ) Respiratory normal respiratory effort; no respiratory distress Auscultation: lungs clear to auscultation bilaterally; no wheezes Cardiovascular Rate/Rhythm: regular rate and regular rhythm Heart Sounds: no murmur Vessels: no carotid bruit Musculoskeletal Spine: + pain with cervical ROM Extremities: extremities normal to inspection Psychiatric Orientation: alert Lab Results Anesthesia Preop Results Results Anesthesia Widget: WBC 6.09 K/uL (4.8-10.8) 06/25/21 Hgb 15.6 g/dL (14.0-18.0) 06/25/21 Hct 44.0 % (42-52) 06/25/21 Plt 168 K/uL (130-400) 06/25/21 Na 141 mmol/L (136-145) 06/25/21 K 3.7 mmol/L (3.5-5.1) 06/25/21 Cl 108 mmol/L (98-107) H 06/25/21 CO2 27 mmol/L (21-32) 06/25/21 BUN 13 mg/dl (6-23) 06/25/21 Creat 0.78 mg/dl (0.6-1.4) 06/25/21 Glucose Level 103 mg/dl (70-99(Fasting)) H 06/25/21 PT 11.4 Seconds (9.0-12.0) 06/25/21 PTT 27.7 Seconds (21.0-31.0) 06/25/21 INR 1.1 (0.9-1.1) 06/25/21 HA1c 5.7 % (4.5-5.6) H 06/25/21 Urine Color Yellow 06/25/21 Urine Appearance Clear (Clear) 06/25/21 Urine pH 6.5 (4.5-7.5) 06/25/21 Urine Specific [place] 1.018 (1.000-1.030) 06/25/21 Urine Protein Negative (Negative) 06/25/21 Urine Glucose (UA) Negative (Negative) 06/25/21 Urine Ketones Negative (Negative) 06/25/21 Urine Blood Negative (Negative) 06/25/21 Urine Nitrite Negative (Negative) 06/25/21 Urine Bilirubin Negative (Negative) 06/25/21 Urine Urobilinogen Negative (Negative) 06/25/21 Urine Leukocyte Esterase Negative (Negative) 06/25/21 Blood Type O Positive 06/25/21 Antibody Screen NEGATIVE 06/25/21 Testing Electrocardiogram Date: 06/25/21 Findings: + SB @ (55bpm ) and + no change from (August 09, 2020 per cardio ) Nonspecific ST abnormality Chest X-Ray Date: 06/25/21 Findings: + NAD Cardiac Catheterization Date:08/16/14 The patient has minor coronary artery disease. The most significant area is the proximal LAD which has a 20% stenosis. Left ventricular function is normal. RECOMMENDATIONS: Medical management of the patient's coronary artery disease an outpatient.
--- NOTE | 2021-07-14 20:52 | History & Physical Report ---
Date of Service July 14, 2021 Assessment & Plan (1) Primary osteoarthritis of left knee: Plan: Treatment options discussed with the patient. He has failed conservative measures. He would like to proceed with surgical intervention. Risks, benefits and alternatives to surgery including but not limited to infection, DVT, pain, stiffness, need for revision surgery, damage to blood vessels, damage to nerves, PE, , were discussed with the patient and they wish to proceed. Plan on left total knee arthroplasty at [facility] with Dr. Shafer on 07/15/21. All questions were answered. Will plan on aspirin 81mg twice daily for 1 mo post op vs Xarelto for DVT prophylaxis. Will plan on HHPT post op. F/u in the office post operatively. History of Present Illness Chief Complaint: Left knee pain Primary Care Provider: Dominik Concepcion, DO 61 year old male with PMHx significant for CAD, HTN, DM2, prior right septic total knee requiring I&D with poly exhcange. He has ongoing left knee pain. Pain is interfering with his daily activities. He has failed conservative measures and would like to proceed with knee replacement. He is on chronic suppressive antibiotics due to his right knee. Patient denies headaches, sweats, fevers, chills, double vision, blurred vision, cough, sore throat, dysphagia, chest pain, sob, wheezing, n/v/d/c, numbness, tingling, fatigue, urinary symptoms, mood disorders. ROS positive for left knee pain and stiffness. Allergies Allergy/AdvReac Type Severity Reaction Status Date / Time celecoxib [From Celebrex] Allergy Intermediate Hives Verified 07/09/21 11:13 meloxicam Allergy Intermediate Itching Verified 07/09/21 11:13 eyes and neck Home Medications Medication Instructions Recorded Confirmed Type multivitamin with minerals 1 tab PO QAM tab 09/13/18 07/09/21 History acetaminophen 500 mg tablet 500 mg PO DAILY PRN tab 12/13/18 07/09/21 History psyllium husk 3.4 gram/5.4 gram 1 tbsp PO HS 10/30/19 07/09/21 History oral powder (Metamucil) Saccharomyces boulardii 250 mg 250 mg PO BID #60 cap 08/26/20 07/09/21 Rx capsule (Florastor) potassium chloride 20 mEq 40 meq PO BID #360 tab 08/26/20 07/09/21 Rx tablet,extended release cefadroxil 500 mg capsule 500 mg PO BID #60 cap 11/19/20 07/09/21 Rx amlodipine 10 mg tablet See Rx Instructions .ROUTE 04/27/21 07/09/21 Rx .COMPLEX #90 tab guanfacine 2 mg tablet 2 mg PO HS #90 tab 05/29/21 07/09/21 Rx lisinopril 40 mg tablet 40 mg PO HS #90 tab 06/22/21 07/09/21 Rx celecoxib 100 mg capsule (Celebrex) 100 mg PO BID #60 cap 06/23/21 07/09/21 Rx ibuprofen 200 mg tablet 400 mg PO TID 06/23/21 07/09/21 History tamsulosin 0.4 mg capsule 0.8 mg PO HS #60 cap 06/23/21 07/09/21 Rx hydrochlorothiazide 25 mg tablet 25 mg PO QAM #90 tab 06/30/21 07/09/21 Rx pantoprazole 40 mg tablet,delayed See Rx Instructions .ROUTE 06/30/21 07/09/21 Rx release .COMPLEX #90 tab carvedilol 25 mg tablet See Rx Instructions .ROUTE 07/02/21 07/09/21 Rx .COMPLEX #60 tab Past Med/Surg History Medical History (Updated 07/14/21 @ 20:51 by Hema Huff PA-C) CAD (coronary artery disease) "Minor" CAD per 2015 cardiac cath Chronic radicular low back pain Degenerative disc disease GERD without esophagitis Well controlled and stable Hearing difficulty 70% hearing to right ear - s/p fall No hearing aids History of kidney stones No recent issues Hx of melanoma of skin S/p removal Hyperlipidemia Hypertension Infection of total right knee replacement S/p I&D (07/2020) (had infection to right knee- prior Right TKA (2012))- reason for daily cefadroxil (will be on chronically) Follows with I&D with [facility] Type 2 diabetes mellitus Diet controlled Surgical History (Updated 06/25/21 @ 13:57 by Mandy Wood PA-C) H/O cardiac catheterization 2014- no stents H/O knee surgery right (multiple) History of colonoscopy History of cystoscopy Cystoscopy, bladder biopsies, bladder resection (10/13/20): MAC at [facility]. No issues per post-op anesthesia progress note. History of lithotripsy History of lumbar fusion L4-L5 decompression/fusion History of surgery right finger surgery History of tonsillectomy History of total knee arthroplasty Right (2012) Hx of melanoma excision PONV (postoperative nausea and vomiting) S/P epidural steroid injection S/P left knee arthroscopy S/P PICC central line placement removed S/P tympanoplasty right Status post incision and drainage Right knee I&D (08/11/20): LMA#5 at [facility]. No issues per post-op anesthesia progress note. Family History Mother Melanoma malignant Hypertension Father Cardiac disorder Myocardial infarction Hypertension Gallbladder disease Sister Graves disease Other No family history of adverse response to anesthesia Denies family history of Ovarian cancer Prostate cancer Breast cancer Colorectal cancer Social History (Updated 06/23/21 @ 16:10 by CLAUDIA Sanchez) Smoking Status: Former smoker Age Started Using Tobacco: 39; Age Quit Using Tobacco: 44; packs per day: 1; Years Smoked: 5; Second Hand Exposure: No; Hx Alcohol Use: No Hx Substance Use: No Preferred Language: Egyptian Communication Ability: Effective Visual Impairment: No Limitations Hearing Ability: Hard of Hearing Track Worker Required: No Beliefs That Will Affect Care: None marital status: Current Living Situation: Spouse current occupational status: employed 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 Feels Safe at Home: Yes Childhood Exposure to Second-Hand Smoke: No caffeine: No during the past year weight has: remained stable Dental Care, Regularly: Yes Physical Activity Frequency: Daily Seatbelt Use: always Sunscreen Use: Yes Assistive Devices: Glasses Review of Systems All systems reviewed & are unremarkable except as noted in HPI & below Physical Exam Constitutional: well developed and well nourished; no acute distress Eyes: PERRL, conjunctivae normal, anicteric sclerae ENMT: external ear and nose normal, oropharynx normal Neck: trachea midline, no thyromegaly Respiratory: normal respiratory effort, lungs clear to auscultation Cardiovascular: RRR, no murmur, no edema Musculoskeletal: Left knee: Varus alignment. Positive bridget's and Nano's. Stable to valgus and varus stress. Tenderness medial joint line. ROM 0-130 degrees. Skin: no rashes, warm and dry Neurologic: patellar DTR's 2+ bilat, sensation intact Psychiatric: A+Ox3, euthymic affect Results & Data ([facility]) Diagnostic Findings Left knee: Severe endstage osteoarthritis, bone on bone medial compartment. Periarticular osteophyte formation and subchondral sclerosis.
[~2021-07-15 06:31] MED LIST changes: +BUPIVACAINE 0.5 % 5 MG/1 ML PF 10ML VIAL ONE; -CEFAZOLIN 2000MG 2,000 MG/15 ML SYR IV SCH; -CeleBREX 200 MG CAP PO SCH; +FAMOTIDINE 20 MG TAB PO SCH; -LR 15ML/HR IV SCH; +LR 500ML BOLUS, THEN 15ML/HR IV SCH; +METOCLOPRAMIDE HCL 10 MG TABLET PO SCH; +ROPIVACAINE 0.5% 5 MG/ML 30 ML VIAL ONE; +ROPIVACAINE 0.5% HCL/PF 150 MG, BUPIVACAINE 0.75% MPF 20 ML, EPINEPHrine 30MG/30ML (OR ... INSTIL SCH; +TRANEXAMIC ACID 1,000 MG **IV Intra-op IV SCH; +TRANEXAMIC ACID 1,000 MG **IV Pre-op IV SCH; +ceFAZolin 2000MG 2,000 MG/15 ML SYR IV SCH; +dexAMETHasone 4 MG TAB PO SCH
[2021-07-15] MEDS ORDERED: ORTHO JOINT ANESTHETIC ONE (07:17)
--- NOTE | 2021-07-15 07:32 | History & Physical Bridge Note ---
Date of Service July 15, 2021 History & Physical Bridge Note I have examined the patient, reviewed the History & Physical and in the interval since the performance of the History & Physical I have noted the following changes of clinical significance: no changes noted
[2021-07-15] MEDS: ALLERGY Noted to ORDERED Medication SCH ×2 (07:40→18:09)
[2021-07-15] MEDS ORDERED: ePHEDrine sulfate 50 MG/ML AMP IV PRN (08:53)
[2021-07-15] MEDS ORDERED: ATROPINE SULFATE 0.1 MG/ML 10ML SYR IV PRN (08:53)
[2021-07-15] MEDS ORDERED: fentaNYL citrate 100 MCG/2 ML VIAL IV PRN (08:53)
[2021-07-15] MEDS ORDERED: HYDROmorphone INJ 2 MG/ML SYR/VIAL IV PRN (08:53)
[2021-07-15] MEDS ORDERED: ONDANSETRON INJ 2 MG/ML 2 ML VIAL IV PRN ×2 (08:53→12:51)
[2021-07-15] MEDS ORDERED: MIDAZOLAM HCL 1 MG/ML 2ML VIAL ONE (08:54)
[2021-07-15] MEDS ORDERED: ONDANSETRON INJ 2 MG/ML 2 ML VIAL ONE (08:55)
[2021-07-15] MEDS ORDERED: KETOROLAC 30 MG/ML VIAL ONE (08:55)
[2021-07-15] MEDS ORDERED: GLYCOPYRROLATE 0.2 MG/ML VIAL ONE (08:55)
[2021-07-15] MEDS ORDERED: DEXAMETHASONE SOD INJ 4 MG/ML VIAL ONE (08:55)
[2021-07-15] MEDS ORDERED: PROPOFOL IV EMULSION 10 MG/ML 20 ML VIAL IV ONE ×2 (08:55→11:02)
[2021-07-15] MEDS ORDERED: KETAMINE 50 MG/5 ML SYRINGE ONE (08:55)
[2021-07-15] MEDS ORDERED: LIDOCAINE 2% 2 ML VIAL/AMP(20MG/ML) INFIL ONE (08:55)
--- NOTE | 2021-07-15 11:19 | Operative Report ---
Post Operative Report Pre & Post Diagnosis Operation Date: 07/15/21 09:10 Pre-Op Diagnosis: Left Knee Osteoarthritis Post-Op Diagnosis: Left Knee Osteoarthritis I identified the patient and participated in the time-out.: Yes Procedure Operation Date: 07/15/21 09:10 Actual Procedures p Left Total Knee Arthroplasty(Left), superficial wound VAC- Manoj Shafer MD Surgeon Manoj Shafer MD Manager Administration Jaime EVANS Estimated Blood Loss 5 Findings Consistent with Post-Op Diagnosis Specimens Bone cuts Drains 2 Hemovac Anesthesia Type MAC Spinal Regional Complications none Disposition Disposition: Recovery Room Indications 61-year-old male with progressive osteoarthritis in left knee failed conservative management. Radiographs demonstrate [id number] medial compartment with a varus knee and moderate patellofemoral osteoarthritis Description of Procedure Patient was taken to the operating room placed supine on the operating table and anesthetized under spinal MAC regional block anesthesia. Exam under anesthesia demonstrated varus left knee some mild pseudolaxity medially some laxity LCL with varus stress positive Nicolette exam. A pneumatic tourniquet was placed about the thigh of the left lower extremity. The left lower extremity was prepped and draped in usual sterile fashion. The leg was elevated exsanguinated with an Esmarch bandage and the pneumatic tourniquet was raised to 300 mm mercury. An anterior incision was made across the left knee. The skin was incised longitudinally subcutaneous flaps were elevated and an incision was made through the medial retinaculum extending up into the mid third of the quadriceps tendon and extended down to the medial tibial tubercle. Intra-articular findings demonstrated chronic ACL tear medial meniscus tear [id number] medial compartment anteromedially with eburnated bone with grade 4 trochlear osteoarthritis and grade III chondromalacia patella. The knee was exposed by excising the infrapatellar fat pad, excising the meniscal remnants and anterior cruciate ligament. Any inflamed synovial tissue was resected. The fat pad over the anterior femur was resected for placement of the component in that area. The lateral synovial bands were release. The femur was exposed. The custom femoral cutting block was pinned in position. The distal femoral cutting block was applied. The distal femoral cut was made with the oscillating saw. The size 10, 4-in-1 cutting block was placed. The anterior and posterior chamfer cuts were made. The knee was extended and a subperiosteal peel lateral release was performed around the patella. The patella width was measured and width was reproduced using freehand cut technique. The 32 millimeter symmetrical patella was used. 3 drill holes are made for the pegs. The tibia was exposed. A custom tibial cutting block was positioned and drill holes were made for the cutting guide. Cutting guide was placed and the proximal cut was made with the oscillating saw. All osteophytes were resected. The lamina fine artist was used to assess ligamentous balance and the ligaments were balanced in extension and flexion. This required medial posterior medial release followed by partial pie crusting anterior portion of the MCL. The tibia was reexposed and measured for a size F tibial component. This was externally rotated in line with the tibial tubercle and the fixation pins were drilled. The proximal tibia was fashioned with the drill and punch. The size 10 CR trial was inserted. The trial MC inserts were used. The 11 mm insert gave balanced ligaments through full range of motion. The patella tracked centrally. the trials were removed. The orthomix anesthetic cocktail was injected per protocol. The knee was then copiously irrigated with pulsatile lavage saline solution. The final components were cemented with Refobacin bone cement. The final components were Robert persona 10 standard left femoral component, F tibial component, 11 MC polyethylene tibial component, 32 symmetrical patella. After the cement cured with the knee in full extension the Betadine soak was used per protocol. The knee joint was copiously irrigated with pulsatile lavage saline solution . 2 drains were brought out laterally and connected to a Hemovac. The quadriceps tendon and medial retinaculum were closed with interrupted [id number] #1 Vicryl sutures. The knee was taken through a full range of motion and repair was secure. The subcutaneous tissues were closed with 2-0 Vicryl sutures and skin was closed with sam. A kelly and Acticoat superficial wound VAC was and the patient tolerated the procedure well. Jaime EVANS my physician regulatory assistant participated as graphic design assistant throughout the procedure and assisted in all aspects he of the procedure. Assisted in soft tissue retraction, instrument management ,leg positioning, the closure, the application of superficial wound VAC and will participate in the postoperative care of the patient. I attest to the content of the Intraoperative Record and any orders documented therein. Any exceptions are noted below.
--- NOTE | 2021-07-15 12:28 | XRay Report ---
LEFT KNEE 2 VIEWS History: Left total knee arthroplasty. Degenerative arthritis. Postop. FINDINGS: The patient is status post a left total knee arthroplasty. The hardware is intact. No fract ure or dislocation. Skin sam and surgical drains are in place. IMPRESSION: Left total knee arthroplasty. No evidence for hardware complication. ACT 112: Negative or not required by law. Electronically signed by: Sudhir West M.D. 07/15/2021 12:26 PM
--- NOTE | 2021-07-15 12:37 | Anesthesiology Progress Note ---
Date of Service July 15, 2021 Anesthesia Post Procedure Vital Signs Vital Signs: Temp Pulse Pulse Resp BP Pulse Ox 07/15/21 12:30 36.5 C 63 16 161/95 H 99 07/15/21 12:20 65 22 111/68 99 07/15/21 12:10 64 16 158/93 H 92 07/15/21 12:00 59 L 18 153/87 H 91 07/15/21 11:50 57 L 16 151/84 H 97 07/15/21 11:40 37.1 C 64 10 L 144/89 H 96 07/15/21 07:28 36.8 C 59 L 18 145/99 H 98 Transfer of Care Handoff Completed per policy Notes Mental Status: alert / awake / arousable and participated in evaluation Patient Amnestic to Procedure: Yes Nausea / Vomiting: adequately controlled Pain: adequately controlled Airway Patency, RR, SpO2: stable & adequate BP & HR: stable & adequate Hydration State: stable & adequate Anesthetic Complications: no major complications apparent and Pt Satisfied with anesthetic care
[2021-07-15] MEDS ORDERED: HYDROmorphone INJ 0.5 MG/0.5 ML SYR IV PRN (12:51)
[2021-07-15] MEDS ORDERED: oxyCODONE HCL IR 5 MG TAB (IMMEDIATE RELEASE) PO PRN (12:51)
[2021-07-15] MEDS ORDERED: bisacodyL 10 MG SUPP PR PRN (12:51)
[2021-07-15] MEDS ORDERED: NALOXONE HCL 0.4 MG/1 ML VIAL/CARP IV PRN (12:51)
[2021-07-15] MEDS ORDERED: SODIUM CHLORIDE 0.9% 1000ML 1,000 ML IV SCH (12:51)
[2021-07-15] MEDS ORDERED: MAGNESIUM HYDROXIDE SUSP 30 ML UDC PO PRN (12:51)
[2021-07-15] MEDS: ACETAMINOPHEN 500 MG TAB PO SCH ×2 (13:58→22:12)
[2021-07-15] MEDS: ceFAZolin 2000MG 2,000 MG/15 ML SYR IV SCH (17:39)
--- NOTE | 2021-07-15 18:37 | Hospitalist Consultation ---
Date of Consultation July 15, 2021 Assessment & Plan (1) Status post total left knee replacement: - POD #0, EBL 5 cc. Superficial wound VAC placed. - He is feeling well, without complains at this time. - Defer antibiotics/pain management/IVF/DVT ppx to primary team. - BMP and CBC in AM. - Requesting metamucil for this evening as he takes it regularly, will order. (2) Hypertension: - Medications include lisinopril 40mg QD, amlodipine 10mg QD, Carvedilol 25mg BID, HCTZ 25mg QD, and guanfacine 2mg HS. - Hold lisinopril, HCTZ until POD #1, may continue amlodipine, guanfacine and carvedilol today as scheduled. - Takes potassium 40 mg BID for history of hypokalemia on labs. - Notes he has had an extensive workup at outside facility in past to evaluate his HTN--per pt, no known reason why he requires so many medications to maintain BP. Does have routine follow up with PCP. (3) Type 2 diabetes mellitus: - Diet controlled, last A1c 5.7% earlier this month. - Accu-Cheks achs with SSI as needed. (4) GERD without esophagitis: - Continue Protonix. (5) BPH (benign prostatic hyperplasia): - Continue Flomax 0.8mg, prefers to take this in AM. (6) Infection of right knee: - In July 2020, of a right TKA done in 2012. He underwent 6 weeks of IV antibiotic therapy and is on chronic suppressive antibiotic therapy with cefadroxil 500 mg twice daily. - He is getting IV cefazolin tonight as post op, can resume cefadroxil tomorrow, pt brought in home medication if this is not available per hospital formulary. (7) Chronic back pain: - Ibuprofen at home, will hold this for now, will likely be adequately treated with ordered post op pain medications. - On med/surg. - SCDs, chemoppx is ASA 81 BID per primary team. - Full Code. Supervising Physician Co-Signing Physician Notes Attending Attestation & Consult Note: Pt seen/examined, chart reviewed, consult care plan d/w NATHAN Turcios. I agree with the hardin components of her documentation. 61yo male with HTN, T2DM, GERD, BPH - presented today for elective L TKA. I saw him on the ortho floor post-op - resting comfortably. Denied any cp, dyspnea, abd pain, nausea or emesis. PMH/PSH/allergies/meds/sochx/famhx - reviewed VSS, afebrile gen - NAD neck - no JVD heart - RRR, s1 s2, no murmur lungs - CTA b/l abd - soft NT BS+ ext - left knee wrapped in dressings, pulses of feet 2+ b/l A/P: 1. T2DM - most recent a1c 5.7%. BSGs likely to be high next ~24 hours given perioperative dexamethasone & stress of surgery. Provide novolog SSI; may need basal insulin as well. 2. HTN - hold HCTZ & FRANCESCA pending AM labs tomorrow. Resume if creatinine is stable. 3. BPH - watch for perioperative urinary retention; cont flomax. Blair Cotton MD History of Present Illness Reason for Consultation: medication management Attending Physician: Manoj Shafer MD History of Present Illness Mr. John is a 61 y/o male with a PMH of DM2, HTN, chronic low back pain, BPH, and GERD who was admitted today for a left TKA after failing conservative therapy. Hospitalist was consulted for medication management. This evening, he is POD #0 and is feeling well. No complaints, without fever or chills, chest pain, shortness of breath, cough, abdominal pain, nausea, vomiting. He is eating, has been able to urinate and is passing gas, has range of motion and sensation in bilateral lower extremities. Without pain. Allergies Allergy/AdvReac Type Severity Reaction Status Date / Time celecoxib [From Celebrex] Allergy Intermediate Hives Verified 07/15/21 07:19 meloxicam Allergy Intermediate Itching Verified 07/15/21 07:19 eyes and neck Home Medications Medication Instructions Recorded Confirmed Type multivitamin with minerals 1 tab PO QAM tab 09/13/18 07/15/21 History psyllium husk 3.4 gram/5.4 gram 1 tbsp PO HS 10/30/19 07/15/21 History oral powder (Metamucil) Saccharomyces boulardii 250 mg 250 mg PO BID #60 cap 08/26/20 07/15/21 Rx capsule (Florastor) potassium chloride 20 mEq 40 meq PO BID #360 tab 08/26/20 07/15/21 Rx tablet,extended release cefadroxil 500 mg capsule 500 mg PO BID #60 cap 11/19/20 07/15/21 Rx amlodipine 10 mg tablet See Rx Instructions .ROUTE 04/27/21 07/15/21 Rx .COMPLEX #90 tab guanfacine 2 mg tablet 2 mg PO HS #90 tab 05/29/21 07/15/21 Rx lisinopril 40 mg tablet 40 mg PO HS #90 tab 06/22/21 07/15/21 Rx tamsulosin 0.4 mg capsule 0.8 mg PO HS #60 cap 06/23/21 07/15/21 Rx hydrochlorothiazide 25 mg tablet 25 mg PO QAM #90 tab 06/30/21 07/15/21 Rx carvedilol 25 mg tablet See Rx Instructions .ROUTE 07/02/21 07/15/21 Rx .COMPLEX #60 tab acetaminophen 500 mg tablet 1,000 mg PO Q8 14 Days #84 tab 07/15/21 Rx (Tylenol Extra Strength) aspirin 81 mg tablet,delayed 81 mg PO BID 30 Days #60 tab 07/15/21 Rx release pantoprazole 40 mg tablet,delayed See Rx Instructions .ROUTE .COMPLEX 07/15/21 07/15/21 History release (Protonix) blood sugar diagnostic (OneTouch #100 ea 07/16/21 Rx Verio test strips) oxycodone 5 mg tablet 5 mg PO Q4H PRN #30 tab MDD 6 07/16/21 Rx polyethylene glycol 3350 17 gram 17 g PO DAILY PRN #5 ea 07/16/21 Rx oral powder packet (Miralax) Patient History Medical History CAD (coronary artery disease) "Minor" CAD per 2015 cardiac cath Chronic radicular low back pain Degenerative disc disease GERD without esophagitis Well controlled and stable Hearing difficulty 70% hearing to right ear - s/p fall No hearing aids History of kidney stones No recent issues Hx of melanoma of skin S/p removal Hyperlipidemia Hypertension Infection of total right knee replacement S/p I&D (07/2020) (had infection to right knee- prior Right TKA (2012))- reason for daily cefadroxil (will be on chronically) Follows with I&D with [facility] Type 2 diabetes mellitus Diet controlled Surgical History H/O cardiac catheterization 2015- no stents H/O knee surgery right (multiple) History of colonoscopy History of cystoscopy Cystoscopy, bladder biopsies, bladder resection (10/13/20): MAC at [facility]. No issues per post-op anesthesia progress note. History of lithotripsy History of lumbar fusion L4-L5 decompression/fusion History of surgery right finger surgery History of tonsillectomy History of total knee arthroplasty Right (2013) Hx of melanoma excision PONV (postoperative nausea and vomiting) S/P epidural steroid injection S/P left knee arthroscopy S/P PICC central line placement removed S/P tympanoplasty right Status post incision and drainage Right knee I&D (08/11/20): LMA#5 at [facility]. No issues per post-op anesthesia progress note. Family History Mother Melanoma malignant Hypertension Father Cardiac disorder Myocardial infarction Hypertension Gallbladder disease Sister Graves disease Other No family history of adverse response to anesthesia Denies family history of Ovarian cancer Prostate cancer Breast cancer Colorectal cancer Social History Smoking Status: Former smoker Age Started Using Tobacco: 39; Age Quit Using Tobacco: 44; packs per day: 1; Years Smoked: 5; Smoking End Date: 2004; Second Hand Exposure: No; Do You Dip or Chew Tobacco: No; Hx Alcohol Use: No Hx Substance Use: No Preferred Language: Kazakh Communication Ability: Effective Visual Impairment: No Limitations Hearing Ability: Hard of Hearing Churn Operator Required: No Beliefs That Will Affect Care: None marital status: Current Living Situation: Spouse current occupational status: employed 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 Feels Safe at Home: Yes Safety Concerns: Feels Safe At This Time Childhood Exposure to Second-Hand Smoke: No caffeine: No during the past year weight has: remained stable Dental Care, Regularly: Yes Physical Activity Frequency: Daily Seatbelt Use: always Sunscreen Use: Yes Assistive Devices: None Assistive Devices Comment: has walker available Review of Systems Review of Systems: Constitutional: No fever/chills, weakness, fatigue, myalgias, anorexia, night sweats Eyes: No diplopia, no worsening or blurred vision ENT: normal hearing, no trouble swallowing Respiratory: No cough, sputum, dyspnea at rest or on exertion Cardiovascular: No chest pain, tightness or palpitations Abdomen: No pain, nausea, vomiting, diarrhea or constipation : Denies dysuria, hematuria, increased urgency/frequency, urinary retention Musculoskeletal: No joint pain, calf pain, swelling Neurologic: No weakness, numbness/tingling, or balance problems Psychiatric: No anxiety or depression Skin: No rash or itch Physical Exam Physical Exam: General: awake, alert, no apparent distress Head: Normocephalic, atraumatic ENT: PERRL, EOMI, no pharyngeal exudate, mucous membranes moist Chest: Clear to auscultation, on room air, no adventitious breath sounds Cardiac: Regular rate and rhythm, no murmur, no JVD, normal peripheral pulses, good capillary refill Abdominal: NABS x 4 quadrants, soft, nontender to palpation, no rebound, guarding or tenderness Extremities: Normal inspection, no peripheral edema or erythema, calfs nontender to palpation Psych: Normal mood and affect Neuro: AAO x 3, strength intact bilaterally and rated 5/5, no motor deficits, speech is clear, no peripheral sensory deficits Skin: no rash or erythema Results & Data Results & Data ([facility]) Vital Signs (Past 12 Hours) Vital Signs Temp Pulse Pulse Resp BP BP Pulse Ox 07/15/21 17:25 37.6 C H 83 18 154/84 H 94 07/15/21 17:00 81 20 166/99 H 94 07/15/21 16:00 77 15 151/87 H 95 07/15/21 15:00 68 16 140/82 94 07/15/21 14:30 66 19 143/72 H 92 07/15/21 14:00 77 21 152/79 H 94 07/15/21 13:45 72 20 149/78 H 94 07/15/21 13:30 73 23 134/89 94 07/15/21 13:15 62 21 126/87 97 07/15/21 13:00 65 15 115/70 99 07/15/21 12:50 62 20 146/90 H 94 07/15/21 12:40 65 19 155/99 H 95 07/15/21 12:30 36.5 C 63 16 161/95 H 99 07/15/21 12:20 65 22 111/68 99 07/15/21 12:10 64 16 158/93 H 92 07/15/21 12:00 59 L 18 153/87 H 91 07/15/21 11:50 57 L 16 151/84 H 97 07/15/21 11:40 37.1 C 64 10 L 144/89 H 96 07/15/21 07:28 36.8 C 59 L 18 145/99 H 98 Laboratory Results Abnormal lab results 07/15/21 07/15/21 Range/Units 07:04 11:47 POC Glucose 159 H 148 H (70-99) mg/dl Diagnostic Findings Knee X-Ray 07/15/21 11:51 LEFT KNEE 2 VIEWS History: Left total knee arthroplasty. Degenerative arthritis. Postop. FINDINGS: The patient is status post a left total knee arthroplasty. The hardware is intact. No fracture or dislocation. Skin sam and surgical drains are in place. IMPRESSION: Left total knee arthroplasty. No evidence for hardware complication. ACT 112: Negative or not required by law. Electronically signed by: Sudhir West M.D. 07/15/2021 12:26 PM PG Care Time/CCT Total # of Minutes Spent Total Time Spent with Patient: Total time spent is greater than 50% in coordination of care (as documented) at patient's floor/unit and/or counseling patient: Coding Level of Care Code 11370 Inpt Consult Level 3 Diagnoses Status post total left knee replacement Z96.652 Hypertension I10 Type 2 diabetes mellitus E11.9 GERD without esophagitis K21.9 Chronic back pain M54.9; G89.29 BPH (benign prostatic hyperplasia) N40.0 Infection of right knee M00.9
[2021-07-15] MEDS ORDERED: GLUCOSE 40% GEL 15 GM TUBE PO PRN (18:40)
[2021-07-15] MEDS ORDERED: GLUCAGON FOR INJ 1 MG VIAL SQ PRN (18:40)
[2021-07-15] MEDS ORDERED: CARBOHYDRATES FOR HYPOGLYCEMIA PO PRN (18:40)
[2021-07-15] MEDS ORDERED: GLUCOSE 10 TABS/TUBE PO PRN (18:40)
[2021-07-15] MEDS ORDERED: DEXTROSE 50% 50 ML SYRINGE IV PRN (18:40)
[2021-07-15] MEDS ORDERED: TAMSULOSIN HCL 0.4 MG CAP PO SCH (21:00)
[2021-07-15] MEDS ORDERED: PSYLLIUM or GUAR GUM FIBER POWDER PACKET PO SCH (21:00)
[2021-07-15] MEDS ORDERED: POTASSIUM CHLORIDE CRTAB 20 MEQ TABCR PO SCH (21:00)
[2021-07-15] MEDS ORDERED: guanFACINE HCL 1 MG TAB PO SCH (21:00)
[2021-07-15] MEDS ORDERED: SENNA 8.6 MG TAB PO SCH (21:00)
[2021-07-15] MEDS ORDERED: lisinopril 40 MG TAB PO SCH (21:00)
[2021-07-15] MEDS ORDERED: amLODIPine BESYLATE 5 MG TAB PO SCH (21:00)
[2021-07-15] MEDS ORDERED: PANTOprazole 40 MG TAB PO SCH (21:00)
[2021-07-15] MEDS: INSULIN ASPART PER UNIT SC SCH (22:08)
[2021-07-15] MEDS: DOCUSATE SODIUM 100 MG CAP PO SCH (22:10)
[2021-07-15] MEDS: carvediloL 25 MG TAB PO SCH (22:10)
[2021-07-15] MEDS: SACCHAROMYCES BOULARDII 250 MG CAP PO SCH (22:11)
[2021-07-15] MEDS: ASPIRIN 81 MG ECTAB PO SCH (22:19)
[2021-07-16] MEDS: ceFAZolin 2000MG 2,000 MG/15 ML SYR IV SCH (01:14)
[2021-07-16] MEDS: ACETAMINOPHEN 500 MG TAB PO SCH ×2 (05:32→14:19)
[2021-07-16 07:20] LABS: Hematocrit (blood only) 38.6 % (42-52); Hemoglobin 13.6 g/dL (14.0-18.0); Mean Corpuscular Hemoglobin 30.6 pg (25-34); Mean Corpuscular Hgb Conc 35.2 g/dL (32-36); Mean Corpuscular Volume 86.7 fL (80-100); Mean Platelet Volume 10.3 fL (7.4-10.4); Platelet Count 184 K/uL (130-400); RDW Coefficient of Variation 13.2 % (11.5-14.5); RDW Standard Deviation 42.1 fL (36.4-46.3); Red Blood Count 4.45 M/uL (4.7-6.1); White Blood Count 13.48 K/uL (4.8-10.8)
[2021-07-16 07:36] LABS: BUN Creatinine Ratio 18.8 (10-20); Calcium 8.8 mg/dl (8.5-10.1); Est GFR (African American) 113.3 ml/min; Est GFR (Non-African American) 97.8 ml/min; Potassium 3.8 mmol/L (3.5-5.1)
[2021-07-16] MEDS ORDERED: POTASSIUM CHLORIDE CRTAB 20 MEQ TABCR PO SCH (08:00)
[2021-07-16] MEDS: INSULIN ASPART PER UNIT SC SCH ×3 (08:58→17:35)
[2021-07-16] MEDS ORDERED: TAMSULOSIN HCL 0.4 MG CAP PO SCH (09:00)
[2021-07-16] MEDS ORDERED: hydroCHLOROthiazide 25 MG TAB PO SCH (09:00)
[2021-07-16] MEDS ORDERED: MULTIVITAMIN TAB PO SCH (09:00)
[2021-07-16] MEDS: DOCUSATE SODIUM 100 MG CAP PO SCH (09:02)
[2021-07-16] MEDS: SACCHAROMYCES BOULARDII 250 MG CAP PO SCH (09:03)
[2021-07-16] MEDS: carvediloL 25 MG TAB PO SCH (09:04)
--- NOTE | 2021-07-16 09:48 | Orthopedic Progress Note ---
Date of Service July 16, 2021 Assessment & Plan (1) Primary osteoarthritis of left knee: Plan: Postop day 1 status post left total knee arthroplasty. Continue PT/OT protocols. Weightbearing as tolerated. DVT prophylaxis-aspirin p.o. twice daily, GOYO Cerna. Pain management as written. Blood pressure somewhat elevated this morning but likely prior to medication being given. Recheck later today. DC planning-patient is planning for outpatient PT upon discharge. We will check on him later this morning to see how he is progressing and plan for possible discharge to home today. Admission and Anticipated Discharge Date Admission Date: July 15, 2021 Subjective Postop day 1 Patient finishing up his physical therapy session. Patient is progressing well with PT. Pain is controlled. Discussed with Onesimo from physical therapy. Patient is doing very well and tends to be doing more than he should be at this time. We both discussed this with the patient to not overdo his ambulation at this time. Or his bedside exercises. Denies shortness of breath, chest pain, lightheadedness. Physical Exam Physical Exam: Dressings are clean, dry, and intact. Calves are soft and nontender. Neurovascular intact. Toes are mobile. He has good dorsiflexion and plantarflexion of the left foot. Hemovac drainage was around 150 mL from the previous shift. Results & Data ([facility]) Vital Signs (Past 12 Hours) Vital Signs Temp Pulse Resp BP Pulse Ox 07/16/21 07:40 37.1 C 58 L 16 169/88 H 98 07/16/21 05:33 36.5 C 66 18 165/87 H 93 07/15/21 21:54 162/82 H 07/15/21 21:50 36.6 C 71 18 187/94 H 97 Laboratory Results Laboratory Results WBC 13.48 K/uL (4.8-10.8) H 07/16/21 06:50 RBC 4.45 M/uL (4.7-6.1) L 07/16/21 06:50 Hgb 13.6 g/dL (14.0-18.0) L 07/16/21 06:50 Hct 38.6 % (42-52) L 07/16/21 06:50 MCV 86.7 fL (80-100) 07/16/21 06:50 MCH 30.6 pg (25-34) 07/16/21 06:50 MCHC 35.2 g/dL (32-36) 07/16/21 06:50 RDW Std Deviation 42.1 fL (36.4-46.3) 07/16/21 06:50 RDW Coeff of Chencho 13.2 % (11.5-14.5) 07/16/21 06:50 Plt Count 184 K/uL (130-400) 07/16/21 06:50 MPV 10.3 fL (7.4-10.4) 07/16/21 06:50 Sodium 140 mmol/L (136-145) 07/16/21 06:50 Potassium 3.8 mmol/L (3.5-5.1) 07/16/21 06:50 Chloride 109 mmol/L (98-107) H 07/16/21 06:50 Carbon Dioxide 25 mmol/L (21-32) 07/16/21 06:50 Anion Gap 6 (3-11) 07/16/21 06:50 BUN 15 mg/dl (6-23) 07/16/21 06:50 Creatinine 0.80 mg/dl (0.6-1.4) 07/16/21 06:50 Est Cr Clr Drug Dosing 117.0 ml/min 07/16/21 06:50 Est GFR ( Amer) 113.3 ml/min 07/16/21 06:50 Est GFR (Non-Af Amer) 97.8 ml/min 07/16/21 06:50 BUN/Creatinine Ratio 18.8 (10-20) 07/16/21 06:50 Glucose 172 mg/dl (70-99(Fasting)) H 07/16/21 06:50 POC Glucose 236 mg/dl (70-99) H 07/16/21 08:07 Calcium 8.8 mg/dl (8.5-10.1) 07/16/21 06:50 SARS-CoV-2, RNA, NAAT NEGATIVE (NEGATIVE) 07/15/21 06:58 Impressions Knee X-Ray 07/15/21 11:51 LEFT KNEE 2 VIEWS History: Left total knee arthroplasty. Degenerative arthritis. Postop. FINDINGS: The patient is status post a left total knee arthroplasty. The hardware is intact. No fracture or dislocation. Skin sam and surgical drains are in place. IMPRESSION: Left total knee arthroplasty. No evidence for hardware complication. ACT 112: Negative or not required by law. Electronically signed by: Sudhir West M.D. 07/15/2021 12:26 PM
[2021-07-16] MEDS ORDERED: lisinopril 40 MG TAB PO STA (10:14)
[2021-07-16] MEDS ORDERED: INSULIN GLARGINE SOLOSTAR 100 UNITS/ML 3 ML PEN SC SCH (10:30)
[2021-07-16] MEDS: ASPIRIN 81 MG ECTAB PO SCH (11:04)
--- NOTE | 2021-07-16 13:06 | Hospitalist Progress Note ---
Date of Service July 16, 2021 Assessment & Plan (1) Status post total left knee replacement: Plan: POD #1 s/p Left TKR DVT proph - asa 81mg BID Discussed bowel regimen for constipation (2) Hypertension: Plan: Electrolytes & creatinine stable on BMP this am. Continue lisinopril 40mg QD (I gave him his HS lisinopril THIS AM due to high readings), amlodipine 10mg QD, Carvedilol 25mg BID, HCTZ 25mg QD. Suspect high readings are due to pain, perioperative steroids, etc. (3) Type 2 diabetes mellitus: Plan: A1c 5.7% June 2021. Did give lantus x 1 this am. High BSGs 2nd to dexamethasone & physical stress of surgery. BSGs will improve next 24-36 hours. Gave meter to patient. Test strips prescribed and sent to pharmacy for him. Check BSGs once a day at home. f/u with PCP if readings are consistently >150 at home. (4) GERD without esophagitis: Plan: continue Protonix. No issues. (5) BPH (benign prostatic hyperplasia): Plan: Continue Flomax 0.8mg No LUTS (6) Infection of right knee: Plan: Right TKA - 2020 - septic TKA on right. On cefadroxil 500 mg twice daily for prophylaxis. (7) Chronic back pain: Plan: mild leukocytosis - 2nd to perioperative steroids & stress of surgery. No symptoms/signs of any infectious process with normal temps today. mild acute blood loss anemia (2gm drop relative to pre-op labs) - no Rx needed. From medical standpoint can d/c home today. f/u with PCP 1-2 weeks. Admission and Anticipated Discharge Date Admission Date: July 15, 2021 Subjective no events overnight feels well L knee pain largely controlled passing flatus no cp, no dyspnea we discussed BSG checks at home - will get him free meter and send him home with test strips, etc Review of Systems Review of Systems: cv - no chest pain pulm - no dyspnea GI - no abd pain, nausea, emesis Physical Exam Physical Exam: gen - NAD mouth - MMM neck - no JVD heart - RRR, s1 s2, no murmur lungs - CTA b/l abd - soft NT ND BS+ ext - left knee dressings in place, pulses b/l feet 2+ psych - a/o x 3 Results & Data Results & Data ([facility]) Vital Signs (Past 12 Hours) Vital Signs Temp Pulse Resp BP Pulse Ox 07/16/21 11:35 36.6 C 55 L 16 179/74 H 98 07/16/21 07:40 37.1 C 58 L 16 169/88 H 98 07/16/21 05:33 36.5 C 66 18 165/87 H 93 Laboratory Results BMP wnl BSGs mildly elevated cbc - Hb 13.6; preop 15.6 wbc 13.4 PG Care Time/CCT Total # of Minutes Spent Total Time Spent with Patient: Total time spent is greater than 50% in coordination of care (as documented) at patient's floor/unit and/or counseling patient: Coding Level of Care Code 06796 Subseq Obs Care Lvl 2 Diagnoses Status post total left knee replacement Z96.652 Hypertension I10 Type 2 diabetes mellitus E11.9 GERD without esophagitis K21.9 BPH (benign prostatic hyperplasia) N40.0 Infection of right knee M00.9 Chronic back pain M54.9; G89.29
[2021-07-16] MEDS ORDERED: lisinopril 40 MG TAB PO SCH (21:00)
[2021-07-17] MEDS ORDERED: lisinopril 40 MG TAB PO SCH (21:00)
--- NOTE | 2021-07-19 08:25 | Discharge Summary ---
Date of Service July 19, 2021 Admission HPI Per Admitting Provider 61 year old male with PMHx significant for CAD, HTN, DM2, prior right septic total knee requiring I&D with poly exhcange. He has ongoing left knee pain. Pain is interfering with his daily activities. He has failed conservative measures and would like to proceed with knee replacement. He is on chronic suppressive antibiotics due to his right knee. Patient denies headaches, sweats, fevers, chills, double vision, blurred vision, cough, sore throat, dysphagia, chest pain, sob, wheezing, n/v/d/c, numbness, tingling, fatigue, urinary symptoms, mood disorders. ROS positive for left knee pain and stiffness. Admission Exam Per Admitting Provider Physical Exam Constitutional: well developed and well nourished; no acute distress Eyes: PERRL, conjunctivae normal, anicteric sclerae ENMT: external ear and nose normal, oropharynx normal Neck: trachea midline, no thyromegaly Respiratory: normal respiratory effort, lungs clear to auscultation Cardiovascular: RRR, no murmur, no edema Musculoskeletal: Left knee: Varus alignment. Positive bridget's and Nano's. Stable to valgus and varus stress. Tenderness medial joint line. ROM 0-130 degrees. Skin: no rashes, warm and dry Neurologic: patellar DTR's 2+ bilat, sensation intact Psychiatric: A+Ox3, euthymic affect Principal Diagnosis Left knee osteoarthritis Discharge Data Allergies Allergy/AdvReac Type Severity Reaction Status Date / Time celecoxib [From Celebrex] Allergy Intermediate Hives Verified 07/15/21 07:19 meloxicam Allergy Intermediate Itching Verified 07/15/21 07:19 eyes and neck Consultations 07/10/21 17:16 Consult Hospitalist Routine 07/15/21 12:51 Consult Hospitalist Routine Procedures Performed Operation Date: 07/15/21 09:10 Actual Procedures p Left Total Knee Arthroplasty(Left) - Manoj Shafer MD Ordered Studies 07/15/21 05:00 US - OR guided needle placemen Routine Hospital Course (1) Primary osteoarthritis of left knee: Patient:NEGRA PHILLIP Admit Date:07/15/21 MR#:[id number] Att Phy:Manoj Shafer M.D. Acct ID:[id number] Sharda Phy:Dominik Concepcion DO Date:1960 Fam Phy: Age:61 Location:3E Sex:M Room/Bed:[facility] cc: ~ *NOTICE TO RECEIVING DEMOCRAT/AGENCY This information is strictly Confidential and protected under [place] law. [place] law prohibits you from making any further disclosure of this information unless further disclosure is expressly permitted by the written consent of the person to whom it pertains or is authorized by law. A general authorization for the release of medical or other information is not sufficient for this purpose. Hospital accepts no responsibility if the information is made available to any other person, INCLUDING THE PATIENT. Date of Service July 16, 2021 Assessment & Plan (1) Primary osteoarthritis of left knee: Plan: Postop day 1 status post left total knee arthroplasty. Continue PT/OT protocols. Weightbearing as tolerated. DVT prophylaxis-aspirin p.o. twice daily, SCDs, GOYO flower. Pain management as written. Blood pressure somewhat elevated this morning but likely prior to medication being given. Recheck later today. DC planning-patient is planning for outpatient PT upon discharge. We will check on him later this morning to see how he is progressing and plan for possible discharge to home today. Admission and Anticipated Discharge Date Admission Date: July 15, 2021 Subjective Postop day 1 Patient finishing up his physical therapy session. Patient is progressing well with PT. Pain is controlled. Discussed with Onesimo from physical therapy. Patient is doing very well and tends to be doing more than he should be at this time. We both discussed this with the patient to not overdo his ambulation at this time. Or his bedside exercises. Denies shortness of breath, chest pain, lightheadedness. Physical Exam Physical Exam: Dressings are clean, dry, and intact. Calves are soft and nontender. Neurovascular intact. Toes are mobile. He has good dorsiflexion and plantarflexion of the left foot. Hemovac drainage was around 150 mL from the previous shift. Results & Data ([facility]) Vital Signs (Past 12 Hours) Vital Signs Temp Pulse Resp BP Pulse Ox 07/16/21 07:40 37.1 C 58 L 16 169/88 H 98 07/16/21 05:33 36.5 C 66 18 165/87 H 93 07/15/21 21:54 162/82 H 05/25/22 21:50 36.6 C 71 18 187/94 H 97 Laboratory Results Laboratory Results WBC 13.48 K/uL (4.8-10.8) H 07/16/21 06:50 RBC 4.45 M/uL (4.7-6.1) L 07/16/21 06:50 Hgb 13.6 g/dL (14.0-18.0) L 07/16/21 06:50 Hct 38.6 % (42-52) L 07/16/21 06:50 MCV 86.7 fL (80-100) 07/16/21 06:50 MCH 30.6 pg (25-34) 07/16/21 06:50 MCHC 35.2 g/dL (32-36) 07/16/21 06:50 RDW Std Deviation 42.1 fL (36.4-46.3) 07/16/21 06:50 RDW Coeff of Chencho 13.2 % (11.5-14.5) 07/16/21 06:50 Plt Count 184 K/uL (130-400) 07/16/21 06:50 MPV 10.3 fL (7.4-10.4) 07/16/21 06:50 Sodium 140 mmol/L (136-145) 07/16/21 06:50 Potassium 3.8 mmol/L (3.5-5.1) 07/16/21 06:50 Chloride 109 mmol/L (98-107) H 07/16/21 06:50 Carbon Dioxide 25 mmol/L (21-32) 07/16/21 06:50 Anion Gap 6 (3-11) 07/16/21 06:50 BUN 15 mg/dl (6-23) 07/16/21 06:50 Creatinine 0.80 mg/dl (0.6-1.4) 07/16/21 06:50 Est Cr Clr Drug Dosing 117.0 ml/min 07/16/21 06:50 Est GFR ( Amer) 113.3 ml/min 07/16/21 06:50 Est GFR (Non-Af Amer) 97.8 ml/min 07/16/21 06:50 BUN/Creatinine Ratio 18.8 (10-20) 07/16/21 06:50 Glucose 172 mg/dl (70-99(Fasting)) H 07/16/21 06:50 POC Glucose 236 mg/dl (70-99) H 07/16/21 08:07 D Calcium 8.8 mg/dl (8.5-10.1) 07/16/21 06:50 SARS-CoV-2, RNA, NAAT NEGATIVE (NEGATIVE) 07/15/21 06:58 Impressions Knee X-Ray 07/15/21 11:51 LEFT KNEE 2 VIEWS History: Left total knee arthroplasty. Degenerative arthritis. Postop. FINDINGS: The patient is status post a left total knee arthroplasty. The hardware is intact. No fracture or dislocation. Skin sam and surgical drains are in place. IMPRESSION: Left total knee arthroplasty. No evidence for hardware complication. ACT 112: Negative or not required by law. Electronically signed by: Sudhir West M.D. 07/15/2021 12:26 PM Total Time Total Time Spent Total Time Spent (In Minutes): 5 Discharge Plan Discharge Items Patient Disposition: Home - Self-Care Reason For Visit: Left Knee Osteoarthritis Discharge Diagnosis: Left Knee Osteoarthritis Activity: Per Instructions section Weightbearing: Left weightbearing Weightbearing Comment: as tolerated with walker Non-emergency contact: Surgeon Call non-emergency contact if: your pain is not controlled, your temperature is above 101.5, your wound has increased redness and your wound has increased drainage Follow-up/Referrals: Dominik Concepcion DO [Primary Care Provider] - Manoj Shafer MD [Surgeon] - (follow up with Dr Shafer in 14 days from the day of surgery for your first post operative visit) Diet: Carb Consistent or DM2 Addtl Attending Provider Instructions: ACTIVITY RECOMMENDATIONS: SELF CARE INSTRUCTIONS AFTER TOTAL KNEE REPLACEMENT A. You may need to continue a physical therapy program after discharge from the hospital. There are several options available to you. Your doctor will assist you in selecting the best one for you. 1. An out-patient facility 2 to 3 times a week for therapy or home therapy. 2. Continue working on all exercises taught to you in the hospital. Your goals should be to increase bending of your knee to 90 degrees and beyond and to fully straighten your knee. B. You may progress at your own pace from walking with a walker or crutches to a cane; then to no assistive devices. C. Make walking a part of your daily routine. Be up as much as comfortable with rest periods throughout the day. Rest with leg elevation is very important. Use the ice wrap frequently for the first 3-4 weeks. D. There are no restrictions on activities. You may ride in a car, shop, participate in manager loss prevention and all social activities. E. Wear the long elastic stockings (GOYO hose) 20 hours a day for 2 weeks after surgery. They can be removed several times a day for laundering and for a bath. F. You may shower, no tub baths until cleared by your doctor. SPECIAL CARE INSTRUCTIONS: VERY IMPORTANT TO READ AND REVIEW A. There are a few signs you need to watch for after you are home. Call [facility] if you notice any of the followin. Increased severe knee pain. Some pain is expected especially when you exercise. 2. Increased swelling in your leg or knee; pain or swelling of the calf muscle in either lower leg. 3. Any fluid drainage from the incision. 4. Shortness of breath or chest pain. B. Please call [facility] at if you have any concerns or questions about your operation or recovery. The doctor or his nurse will return your call promptly. C. You must take antibiotics before dental work, bladder, bowel or other surgery. Your doctor will provide you with a permanent care to carry describing this precaution. IMPORTANT: * REMEMBER TO TAKE ASPIRIN, 81 MG, TWICE DAILY FOR 4 WEEKS UNLESS OTHERWISE DIRECTED. THIS IS YOUR BLOOD THINNER. * HIGH RISK PATIENTS MAY BE PRESCRIBED A STRONGER BLOOD THINNER. THIS WILL BE PROVIDED AT DISCHARGE. * CALL IF INCREASED PAIN, REDNESS, DRAINAGE OR FEVER GREATER THAT 101. * WEAR GOYO HOSE 20 HOURS PER DAY FOR 2 WEEKS. * GISSELLE Dressing - This is a large suction dressing covering your incision. This will help pull any excess drainage from the wound and allow your incision to heal properly. You may shower with this if you can keep the unit outside of the shower. If any bleeding or leakage is noted please call your doctor's office. This will remain on your incision for 7 days and then should be removed. This can be done yourself or by the home nursing staff if applicable. The entire unit is disposable once removed. Once removed, keep incision clean and dry. If redness or drainage is noted, please call your surgeon. . FOLLOW UP VISIT: If appointment is not already scheduled: Please call [facility] to make a follow-up appointment for 2 weeks after your surgery at . Addtl Continuous Process Machine Operator Provider Instructions: From the hospitalist medicine team - Mr Phillip, Please plan to check your blood sugars once daily at home especially over the next week. Your blood sugars were high in the hospital because of physical stress from your surgery as well as steroids used around the time of your operation. I do anticipate your sugars will improve in the next 1-2 days. Please plan to check the sugar at various times day to day. For example, I would check your blood sugar tomorrow morning. Then, on Tuesday, plan to check it before dinner. Then, on Tuesday, plan to check it before lunch. By checking it at various times you get to see what your sugar control is like over an entire day time period. Shoot for blood sugars <150 at all times. If you are seeing values consistently greater than 150 please let your family doctor know. Finally, plan to resume your lisinopril TOMORROW night, 07/17/21. You already received your lisinopril today. Please follow-up with your family doctor within 1 week. Best wishes for a speedy recovery! Dr Cotton Stand-Alone Forms: My [facility], Opioid Pain Management, Smoking Cessation Medications and DC Order Prescriptions: New acetaminophen [Tylenol Extra Strength] 500 mg Tablet 1,000 mg PO Q8 14 Days Qty: 84 RF: 0 aspirin 81 mg Tablet,Delayed Release (Dr/Ec) 81 mg PO BID 30 Days Qty: 60 RF: 0 polyethylene glycol 3350 [Miralax] 17 gram powder in packet 17 g PO DAILY PRN (Reason: constipation) Qty: 5 RF: 0 oxycodone 5 mg Tablet 5 mg PO Q4H MDD 6 PRN (Reason: pain) Qty: 30 RF: 0 (DME) OneTouch Verio test strips Strip See Rx Instructions .Route Qty: 100 RF: 0 Continued amlodipine 10 mg tablet See Rx Instructions .ROUTE .COMPLEX Qty: 90 RF: 1 guanfacine 2 mg tablet 2 mg PO HS Qty: 90 RF: 1 lisinopril 40 mg tablet 40 mg PO HS Qty: 90 RF: 1 hydrochlorothiazide 25 mg tablet 25 mg PO QAM Qty: 90 RF: 3 carvedilol 25 mg tablet See Rx Instructions .ROUTE .COMPLEX Qty: 60 RF: 1 cefadroxil 500 mg capsule 500 mg PO BID Qty: 60 RF: 0 Saccharomyces boulardii [Florastor] 250 mg capsule 250 mg PO BID Qty: 60 RF: 1 potassium chloride 20 mEq tablet extended release 40 meq PO BID Qty: 360 RF: 1 multivitamin with minerals tablet 1 tab PO QAM RF: 0 tamsulosin 0.4 mg capsule 0.8 mg PO HS Qty: 60 RF: 1 Metamucil 3.4 gram/5.4 gram Powder 1 tbsp PO HS RF: 0 pantoprazole [Protonix] 40 mg tablet,delayed release (DR/EC) See Rx Instructions .ROUTE .COMPLEX RF: 0 Discontinued acetaminophen 500 mg tablet 500 mg PO DAILY PRN (Reason: Pain) RF: 0 ibuprofen 200 mg Tablet 400 mg PO TID RF: 0 Discharge Orders: Discharge Order (Routine); Ordered 07/16/21 Ordered By: Jaime Lambert/Other Patient Handouts: DVT Post Op Prevention Admission Data Admit Date/Time: 07/15/21 11:51 Attending Provider: Manoj Shafer Admit Provider: Manoj Shafer Primary Care Provider: Dominik Concepcion Other Providers: Blair Cotton Thomas E. Other Interventions: Discharge Summary Assessment (RN) Last Done: 07/16/21 16:35
== END 2021-07-16 17:47 | disposition home or self-care (01) ==
LOC: ASU 06:31 → PACUINP 06:31 → 3E 17:31

== ENCOUNTER 2024-06-12 13:39 | Inpatient (IN) ==
[2024-06-12] MEDS: ASPIRIN CHEW 324 MG PO STA (13:55)
--- NOTE | 2024-06-12 14:40 | XRay Report ---
XR chest 1V portable CLINICAL HISTORY: Chest pain, nonspecific COMPARISON STUDY: 06/25/2021 FINDINGS: Heart size and pulmonary vasculature are normal. No effusion, consolidation, or pneumothora x. IMPRESSION: No acute findings. ACT 112: Negative or not required by law. Electronically signed by: Danis Blair M.D. 06/12/2024 2:39 PM
[2024-06-12 14:43] LABS: Calcium 8.9 mg/dl (8.6-10.3); Potassium 3.6 mmol/L (3.5-5.1)
[2024-06-12 14:47] LABS: Troponin I High Sensitivity 3.3 pg/ml (0-20)
[2024-06-12 14:49] LABS: Creatinine Clr Calc Pharmacy 56.8 ml/min
[2024-06-12 14:52] LABS: Basophils # (auto) 0.04 K/uL (0.00-0.20); Basophils % (auto) 0.8 %; Eosinophils # (auto) 0.15 K/uL (0.00-0.50); Eosinophils % (auto) 2.8 %; Hematocrit (blood only) 39.8 % (42.0-52.0); Hemoglobin 13.9 g/dl (14.0-18.0); Immature Granulocytes # (auto) 0.02 K/uL (0.01-0.20); Immature Granulocytes % (auto) 0.4 %; Lymphocytes # (auto) 1.14 K/uL (1.20-3.40); Lymphocytes % (auto) 21.6 %; Mean Corpuscular Hemoglobin 30.3 pg (25.0-34.0); Mean Corpuscular Hgb Conc 34.9 g/dL (32.0-36.0); Mean Corpuscular Volume 86.9 fL (80.0-100.0); Mean Platelet Volume 10.1 fL (9.4-12.4); Monocytes # (auto) 0.38 K/uL (0.11-0.59); Monocytes % (auto) 7.2 %; Neutrophils # (auto) 3.55 K/uL (1.40-6.50); Neutrophils % (auto) 67.2 %; Platelet Count 182 K/uL (130-400); RDW Coefficient of Variation 12.2 % (11.5-14.5); RDW Standard Deviation 38.6 fL (36.4-46.3); Red Blood Count 4.58 M/uL (4.70-6.10); White Blood Count 5.28 K/ul (4.8-10.8)
[2024-06-12 15:05] LABS: INR 1.1 (0.9-1.1); Partial Thromboplastin Time 27 Seconds (21-31); Prothrombin Time 11.8 Seconds (9.0-12.0)
--- NOTE | 2024-06-12 15:23 | Pre Anesthesia Assessment ---
Date of Service June 12, 2024 Pre Sedation Assessment Vital Signs Temp Pulse Pulse Resp BP BP Pulse Ox 06/12/24 14:59 48 L 06/12/24 14:28 50 L 15 94 06/12/24 13:51 63 24 169/100 H 96 06/12/24 13:41 98.4 F 71 18 194/83 H 97 O2 Del Method 06/12/24 14:59 06/12/24 14:28 Room Air 06/12/24 13:51 Room Air 06/12/24 13:41 Room Air Cardiovascular + regular rate Respiratory + respiratory effort normal Pre-Sedation Airway Assessment Smoking Status: Never smoker Hx Sleep Apnea: No Hx Difficult Intubation: No Short, Thick Neck: No Thyromental Distance: > or= 3.5 Finger Breadths Oral Cavity: + Dental Abnormalities Mallampati Class: II ASA: ASA3 Procedure Planning Contraindications for Sedation: none Current Medications Reviewed: Yes Notes The planned sedation has been discussed with the patient. Informed Consent was obtained. I have identified the patient, determined the appropriateness of sedation and have assessed the patient immediately prior to the procedure. All medicine(s) and interventions are by my order.
--- NOTE | 2024-06-12 15:32 | History & Physical Report ---
Date of Service June 12, 2024 Assessment & Plan (1) Unstable angina: Plan: Recent symptoms concerning for accelerating unstable angina. Stress test abnormal and potentially suggestive of of LAD distribution ischemia. Recommend proceeding with cardiac catheterization. Discussed procedure with patient and he is agreeable to going forward. Further recommendations pending findings of coronary angiography. History of Present Illness Primary Care Provider: Dominik Concepcion DO Mr. John is a very pleasant 64-year-old man seen today in the ED after referred due to concerns for unstable angina. He has a history of refractory hypertension followed by hypertensive clinic. Also with diet controlled borderline diabetes, dyslipidemia, GERD. Has been having chest pain which radiates to his neck/back with associated nausea for months. Initially just with more extremes of exercise, gives example of shoveling snow. Now having episodes at rest including 1 episode several weeks ago which woke him from sleep and was associated with severe pain. Underwent exercise stress echo 4 weeks ago. Exercised more than 6 minutes with reproduction of chest symptoms. Had mild exercise-induced anterior hypokinesis on stress. He was seen by Dr. Dent today and with progressive chest symptoms occurring now at rest there was concern for accelerating unstable angina and was referred to ED. Here initial HS TropI negative, ECG without dynamic ST changes. He previously underwent cardiac cath 07/2014 which showed no significant obstructive disease. Allergies Allergy/AdvReac Type Severity Reaction Status Date / Time No Known Allergies Allergy Verified 06/12/24 12:45 Home Medications Medication Instructions Recorded Confirmed Type multivitamin with minerals 1 tab PO QDL 09/13/18 06/12/24 History psyllium husk 3.4 gram/5.4 gram 3 tbsp PO HS 05/20/22 06/12/24 History oral powder (Metamucil) celecoxib 200 mg capsule (Celebrex) 200 mg PO HS 01/19/23 06/12/24 History chlorthalidone 25 mg tablet 25 mg PO QAM 02/02/24 06/12/24 History guanfacine 2 mg tablet 2 mg PO HS #90 tabs 04/09/24 06/12/24 Rx fenofibrate nanocrystallized 145 145 mg PO DAILY #30 tabs 04/24/24 06/12/24 Rx mg tablet amlodipine 10 mg-olmesartan 40 mg 1 tab PO HS #90 tabs 05/07/24 06/12/24 Rx tablet pantoprazole 40 mg tablet,delayed 40 mg PO HS #90 tabs 05/21/24 06/12/24 Rx release eplerenone 50 mg tablet 50 mg PO BID 90 days #180 tabs 06/07/24 06/12/24 Rx Past Med/Surg History Problem List (Updated 06/12/24 @ 13:42 by Tan Dent MD) Unstable angina Acute kidney injury Abnormal stress test Chest pain Type 2 diabetes mellitus Chronic anterior anal fissure Family history of colon polyps, unspecified Obstructive sleep apnea Bradycardia Umbilical hernia, incarcerated ADD (attention deficit disorder) BPH (benign prostatic hyperplasia) Primary osteoarthritis of left knee Leukocytosis Knee pain, right (Acute) Erectile dysfunction Nocturia Acute blood loss anemia DVT prophylaxis Neurogenic claudication due to lumbar spinal stenosis Chronic back pain Chronic radicular low back pain Lower urinary tract symptoms (LUTS) Nephrolithiasis Hemorrhoids Rupture of anterior cruciate ligament of left knee (Acute) Hypertension (Acute) Hyperlipidemia (Acute) Hearing difficulty (Acute) 70% hearing to right ear - s/p fall No hearing aids GERD without esophagitis Well controlled and stable Elevated hemoglobin A1c (Acute) Shoulder pain, left (Acute) Leg pain, left (Acute) Knee pain, bilateral (Acute) Medical History Sepsis Hypertension Hyperlipidemia GERD (gastroesophageal reflux disease) BPH (benign prostatic hyperplasia) Hx of melanoma of skin History of kidney stones Infection of total right knee replacement CAD (coronary artery disease) Degenerative disc disease Surgical History Status post total left knee replacement History of cystoscopy S/P PICC central line placement PONV (postoperative nausea and vomiting) History of lumbar fusion History of surgery Status post incision and drainage History of right knee joint replacement S/P epidural steroid injection Hx of melanoma excision History of colonoscopy History of lithotripsy S/P tympanoplasty History of tonsillectomy S/P left knee arthroscopy History of total knee arthroplasty H/O cardiac catheterization H/O knee surgery Family History Mother Melanoma malignant Hypertension Father Cardiac disorder Myocardial infarction Hypertension Gallbladder disease Sister Graves disease Other No family history of adverse response to anesthesia Denies family history of Ovarian cancer Prostate cancer Breast cancer Colorectal cancer Social History Smoking Status: Never smoker Tobacco Type: Cigarettes Age Started Using Tobacco: 39; Age Quit Using Tobacco: 44; packs per day: 1; Cigarettes Per Day: 20; Second Hand Exposure: No; Do You Dip or Chew Tobacco: No; Hx Alcohol Use: No Hx Substance Use: No Preferred Language: Albanian Communication Ability: Effective Visual Impairment: No Limitations Hearing Ability: Hard of Hearing Maori Liaison Adviser Required: No Beliefs That Will Affect Care: None marital status: Current Living Situation: Spouse current occupational status: employed 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 Vascular: 2+ radial Abdomen: Soft, nontender Extremities: Well perfused, no peripheral edema Neuro: Nonfocal Psych: Alert orient x3, normal affect and mood ASA Classification ASA ASA3 Results & Data Vital Signs (Past 12 Hours) Vital Signs Temp Pulse Pulse Resp BP BP Pulse Ox 06/12/24 14:59 48 L 06/12/24 14:28 50 L 15 94 06/12/24 13:51 63 24 169/100 H 96 06/12/24 13:41 98.4 F 71 18 194/83 H 97 O2 Del Method 06/12/24 14:59 06/12/24 14:28 Room Air 06/12/24 13:51 Room Air 06/12/24 13:41 Room Air
[2024-06-12] MEDS: HEPARIN (PORCINE) 1000 UNIT/ML 10 ML (CATH LAB USE ONLY) ONE ×2 (16:36→16:42)
[2024-06-12] MEDS: fentaNYL citrate PF 100 MCG/2 ML VIAL ONE ×2 (16:36→16:42)
[2024-06-12] MEDS: MIDAZOLAM HCL 1 MG/ML 2ML VIAL ONE ×2 (16:37→16:41)
[2024-06-12] MEDS: IODIXANOL (VISIPAQUE) 320 MG/ML 100ML IV ONE (16:38)
[2024-06-12] MEDS: NITROGLYCERIN/D5W 100MCG/ML 20ML SYR ONE (16:39)
[2024-06-12] MEDS: OPTIRAY 350 ONE (16:39)
[2024-06-12] MEDS: niCARdipine 2,000 MCG/20 ML SYR ONE (16:39)
[2024-06-12] MEDS: LIDOCAINE 1% LOCAL 20 ML VIAL ONE (16:40)
[2024-06-12] MEDS: CLOPIDOGREL BISULFATE 300 MG TAB ONE (16:43)
--- NOTE | 2024-06-12 16:47 | Post Anesthesia Assessment ---
Date of Service June 12, 2024 Post Sedation Assessment Vital Signs Temp Pulse Pulse Resp BP BP Pulse Ox 06/12/24 15:09 58 L 18 139/79 96 06/12/24 14:59 48 L 06/12/24 14:28 50 L 15 94 06/12/24 13:51 63 24 169/100 H 96 06/12/24 13:41 98.4 F 71 18 194/83 H 97 O2 Del Method 06/12/24 15:09 06/12/24 14:59 06/12/24 14:28 Room Air 06/12/24 13:51 Room Air 06/12/24 13:41 Room Air Recovery Score Activity: Moves 4 extremities Respiration: Deep Breath/Cough Circulation: +/-20% PreAnes Value Consciousness: Fully Awake Oxygen Saturation: O2 needed for >90% Discharge Sedation Level of Care: Fast Track Phase II Post Sedation Plan On clinical assessment, the patient appears to have tolerated the sedation without complications. Patient is recovering as anticipated. Patient will continue to be monitored by nursing and may be discharged when sedation discharge criteria are met per below protocol. Upon Completions of procedure up to 15 minutes continue every 5 minute vital signs and the P.A.R. score; then discharge to a Phase I or Fast Track to Phase II per the following guidelines: * Discharge Patient to appropriate Phase II area if PAR is 8 or greater or return to pre- procedure baseline. The post - procedure orders will be as directed. * If PAR score is less than 8 or not return to pre-procedure baseline then patient will follow Phase I monitoring till PAR is reached for Phase II. The Phase I may be done in procedure room or may call to secure a Phase I area. * If naloxone or flumazenil are used for reversal, hold in Phase I for continued monitoring from when last reversal dose was given for a minimum of 60 minutes or longer pending the nurse and/or physician discretion of patient condition before discharge to Phase II. Please call the Sedation Physician to re-evaluate and complete post-note for discharge to Phase II area. Do NOT discharge from procedure sedation or Phase 1 until post- sedation evaluation note is complete by procedure /sedation MD Sedation Discharge Instructions to be given to the patient at discharge to home.
[2024-06-12] MEDS ORDERED: ONDANSETRON INJ 2 MG/ML 2 ML VIAL IV PRN (17:06)
[2024-06-12] MEDS ORDERED: NITROGLYCERIN SL 0.4 MG/TAB TAB SL PRN (17:06)
--- NOTE | 2024-06-12 17:06 | Cardiac Catheterization ---
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 Cardiac Status Clinical evaluation leading to the procedure CAD Presenation: Unstable angina Anginal Classification: CCS IV Diagnostic Physicians Name: Tan Calvin MD Closure Device Recommendations: PCI without planned CABG Cardiac Cath Procedure Full Procedure Date June 12, 2024 Pre-Procedure Diagnosis Pre-Procedure Diagnosis: Angina AUC Score AUC Score: 7 Post-Procedure Diagnosis Post-Procedure Diagnosis: Severe CAD, Successful PCI and Normal Intracardiac Pressures Procedure(s) Performed Procedure(s) Performed: Coronary Angiography, Left Heart Cath and Drug Eluting Stent Dot Compliance Specialist Tan Calvin MD Crisis Specialist(s) Tara Estimated Blood Loss Estimated Blood Loss: 15 Medication(s) Medication(s): Clopidogrel, Fentanyl, Heparin, Lidocaine 1%, Nicardipine, Nitroglycerin and Versed Summary of Findings Indication: Accelerating angina, abnormal stress test Access: 6 Fr slender right radial artery Catheters: [place], diagnostic JL 3.5, JR4. EBU 3.5 guide Findings: LM -Short almost separate ostium, normal caliber, no significant disease LAD -medium caliber, 20-30% proximal stenosis, remainder of vessel without significant disease and distal vessel extends to apex. Medium D1 without disease. Circumflex -large caliber, 20-30% mid segment stenosis just before takeoff of large OM 2. Small high OM1 without significant disease. Large OM 2 with 90% proximal stenosis. Remainder of AV groove circumflex without significant disease. RCA -dominant, medium caliber, 30-40% mid segment disease 60-70% distal stenosis just before takeoff of RPDA. RPDA without significant disease. LVEDP -11 -- PCI -- Antithrombotic therapy: Heparin, clopidogrel Procedure: Left main cannulated with EBU 3.5 guide Pre-procedure flow DI 3 Wrapper Sizer 50 wire passed across lesion into distal vessel Proximal OM2 lesion predilated with 2.5 compliant balloon Dilated lesion stented with 3.0 x 22 mm Lewis drug-eluting stent extending from mid circumflex to mid OM2 Stent post-dilated with 3.5 noncompliant balloon IC vasodilators administered for spasm Post procedure DI 3 flow, stent well expanded with minimal residual stenosis and no apparent cardiac complications. Arterial Closure: TR band Summary: 1. Multivessel coronary artery disease - 90% large proximal OM2 45% mid and 60-70% small distal RCA at takeoff of PDA 2. Normal intracardiac filling pressure 3. Successful PCI of proximal OM2 stenosis with single VENUS (3.0 x 22 mm [place]; postdilated with 3.5 NC) extending from mid circumflex to mid OM2. Recommendations: To PCU for continued monitoring Loaded with clopidogrel 600 mg in Swing Tender Continue dual-antiplatelet therapy for at least 6 months Continue ASCVD risk factor modification Hemodynamics Rest Ao:: 146/80/96 Final Ao: 115/67/82 LV: 134/11 Recommendations Recommendations: PCI without planned CABG Radiation Exposure (mGy) 3067 Contrast (mls) 105 Anesthesia Moderate 6950-8828 Procedural Complication(s) None Disposition PCU I attest to the content of the Intraoperative Record and any orders documented therein. Any exceptions are noted below. [facility] Card Cath Procedure Codes Cardiac Catheterization Procedure 1: Cardiovascular Cath Procedures: 53791 Coronaries and LHC (+/-LV) Moderate Sedation Procedure 1: Sedation/Anesthesia: 97340 Mod Sedation by the same physician;Init15 Min Child Age 5 & Up Procedure 2: Sedation/Anesthesia: 10125 Mod Sedation by the same physician; Ea [id number] Minutes Stenting Procedure 1: Cardiovascular Stent Procedures: 35693 Perc transcatheter placement of intracoronary stent(s), with ang PG Care Time/CCT Total # of Minutes Spent Total Time Spent with Patient: Total time spent is greater than 50% in coordination of care (as documented) at patient's floor/unit and/or counseling patient:
[2024-06-12] MEDS: SODIUM CHLORIDE 0.9% 500 ML IV ONE (17:56)
--- NOTE | 2024-06-12 17:58 | History & Physical Report ---
Date of Service June 12, 2024 Assessment & Plan (1) Unstable angina: Plan: The patient underwent left heart catheterization today, June 12, and was found to have a 90% obtuse marginal stenosis and drug-eluting stent was placed by Dr. Calvin. He was seen after the procedure and is medically stable. Compression dressing on the ventral aspect of the right wrist with hemostasis achieved. He was instructed on proper use of sublingual nitroglycerin as an outpatient. Current medications include amlodipine, aspirin, Plavix, losartan, pantoprazole, and rosuvastatin. (2) Chronic kidney disease, stage III (moderate): Plan: Monitor intake and output. Continue IV fluids. Serial labs (3) Type 2 diabetes mellitus: Plan: ADA diet. Sliding scale coverage. (4) Hyperlipidemia: Plan: He is currently on rosuvastatin. He states he takes medication at home but cannot tell us the exact name. Fenofibrate is on his list. Fasting lipid profile is pending (5) Hypertension: Plan: He is on amlodipine and olmesartan as an outpatient. He is currently on amlodipine and losartan. Plan Hopeful discharge to home tomorrow, June 13 Admission and Anticipated Discharge Date Admission Date: June 12, 2024 History of Present Illness Chief Complaint: Chest discomfort at rest Primary Care Provider: Dominik Concepcion, 64-year-old white male with a history of essential hypertension, type 2 diabetes, chronic kidney disease stage III, hyperlipidemia. He has had symptoms of angina pectoris for some time now which have progressed to the point where he is having symptoms at rest and actually had chest pain symptoms that awoke him at nighttime. He was sent to the hospital for evaluation and subsequently had emergent left heart catheterization and was found to have a 90% obtuse marginal stenosis with VENUS stent placement by Dr. Calvin. He was seen postoperatively and is alert and oriented and asymptomatic. Vital signs are stable and he is on telemetry. Current medications include amlodipine, aspirin, Plavix, losartan, pantoprazole, and rosuvastatin. He was instructed on proper use of sublingual nitroglycerin should his chest discomfort symptoms recur after discharge. He was instructed to let nursing staff know immediately if any chest discomfort or symptoms recur while hospitalized. Allergies Allergy/AdvReac Type Severity Reaction Status Date / Time No Known Allergies Allergy Verified 06/12/24 12:45 Home Medications Medication Instructions Recorded Confirmed Type multivitamin with minerals 1 tab PO QDL 07/24/19 04/22/25 History psyllium husk 3.4 gram/5.4 gram 3 tbsp PO HS 05/20/22 06/12/24 History oral powder (Metamucil) celecoxib 200 mg capsule (Celebrex) 200 mg PO HS 01/19/23 06/12/24 History chlorthalidone 25 mg tablet 25 mg PO QAM 02/02/24 06/12/24 History guanfacine 2 mg tablet 2 mg PO HS #90 tabs 04/09/24 06/12/24 Rx fenofibrate nanocrystallized 145 145 mg PO DAILY #30 tabs 04/24/24 06/12/24 Rx mg tablet amlodipine 10 mg-olmesartan 40 mg 1 tab PO HS #90 tabs 05/07/24 06/12/24 Rx tablet pantoprazole 40 mg tablet,delayed 40 mg PO HS #90 tabs 05/21/24 06/12/24 Rx release eplerenone 50 mg tablet 50 mg PO BID 90 days #180 tabs 06/07/24 06/12/24 Rx aspirin 81 mg tablet,delayed 81 mg PO DAILY 06/12/24 06/12/24 History release Past Med/Surg History Problem List (Updated 06/12/24 @ 17:56 by Kenroy Capone MD) Hyperlipidemia Chronic kidney disease, stage III (moderate) Unstable angina Acute kidney injury Abnormal stress test Chest pain Type 2 diabetes mellitus Chronic anterior anal fissure Family history of colon polyps, unspecified Obstructive sleep apnea Bradycardia Umbilical hernia, incarcerated ADD (attention deficit disorder) BPH (benign prostatic hyperplasia) Primary osteoarthritis of left knee Leukocytosis Knee pain, right (Acute) Erectile dysfunction Nocturia Acute blood loss anemia DVT prophylaxis Neurogenic claudication due to lumbar spinal stenosis Chronic back pain Chronic radicular low back pain Lower urinary tract symptoms (LUTS) Nephrolithiasis Hemorrhoids Rupture of anterior cruciate ligament of left knee (Acute) Hypertension (Acute) Hyperlipidemia (Acute) Hearing difficulty (Acute) 70% hearing to right ear - s/p fall No hearing aids GERD without esophagitis Well controlled and stable Elevated hemoglobin A1c (Acute) Shoulder pain, left (Acute) Leg pain, left (Acute) Knee pain, bilateral (Acute) Medical History Sepsis Hypertension Hyperlipidemia GERD (gastroesophageal reflux disease) BPH (benign prostatic hyperplasia) Hx of melanoma of skin History of kidney stones Infection of total right knee replacement CAD (coronary artery disease) Degenerative disc disease Surgical History Status post total left knee replacement History of cystoscopy S/P PICC central line placement PONV (postoperative nausea and vomiting) History of lumbar fusion History of surgery Status post incision and drainage History of right knee joint replacement S/P epidural steroid injection Hx of melanoma excision History of colonoscopy History of lithotripsy S/P tympanoplasty History of tonsillectomy S/P left knee arthroscopy History of total knee arthroplasty H/O cardiac catheterization H/O knee surgery Family History Mother Melanoma malignant Hypertension Father Cardiac disorder Myocardial infarction Hypertension Gallbladder disease Sister Graves disease Other No family history of adverse response to anesthesia Denies family history of Ovarian cancer Prostate cancer Breast cancer Colorectal cancer Social History Smoking Status: Never smoker Tobacco Type: Cigarettes Age Started Using Tobacco: 39; Age Quit Using Tobacco: 44; packs per day: 1; Cigarettes Per Day: 20; Second Hand Exposure: No; Do You Dip or Chew Tobacco: No; Hx Alcohol Use: No Hx Substance Use: No Preferred Language: Bulgarian Communication Ability: Effective Visual Impairment: No Limitations Hearing Ability: Hard of Hearing Shade Cutter Required: No Beliefs That Will Affect Care: None marital status: Current Living Situation: Spouse current occupational status: employed 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 How many Children do You have: 0 Feels Safe at Home: Yes Childhood Exposure to Second-Hand Smoke: No Diet: regular caffeine: Yes during the past year weight has: remained stable Dental Care, Regularly: Yes Physical Activity Frequency: Daily Seatbelt Use: always Sunscreen Use: Yes Assistive Devices: Glasses Review of Systems 2 Review of Systems: Constitutionalno fever or chills ENTno blurred vision, no double vision, no epistaxis, no sore throat Respiratoryno cough, no wheezing, no shortness of breath Cardiacno palpitations, no chest pain, no syncope [place] nausea, vomiting, diarrhea, melena, hematochezia GUno urinary retention, no urinary incontinence, no dysuria, no hematuria Musculoskeletalno joint pain, no muscle tenderness Skinno bruising, no rashes, no pruritus Neurono isolated weakness, no paresthesia, no weakness Psychno depression, no anxiety Physical Exam 2 Physical Exam: General-alert and oriented x3, no fever, no chills HEENT-head atraumatic and normocephalic, pupils equal and reactive to light, extraocular muscles intact Neck-no lymphadenopathy or thyromegaly, trachea midline Chest-clear to auscultation. No rales, wheezing or rhonchi Cardiac-regular rate and rhythm, normal S1 and S2 Abdomen-normal bowel sounds, no hepatosplenomegaly Extremities-no cyanosis, clubbing, or edema. Compression dressing on the right ventral wrist with hemostasis achieved. There is some duskiness of the right hand from venous congestion Neuro-cranial nerves II through XII intact, motor and sensory function within normal limits, strength symmetrical, no focal deficits Psych-normal affect, normal mood Results & Data Results & Data Vital Signs (Past 12 Hours) Vital Signs Temp Pulse Pulse Resp BP BP BP 06/12/24 17:17 44 L 18 164/85 H 06/12/24 17:15 36.8 C 47 L 18 164/85 H 06/12/24 15:09 58 L 18 139/79 06/12/24 14:59 48 L 06/12/24 14:28 50 L 15 06/12/24 13:51 63 24 169/100 H 06/12/24 13:41 36.9 C 71 18 194/83 H Pulse Ox O2 Del Method 06/12/24 17:17 95 Room Air 06/12/24 17:15 98 Room Air 06/12/24 15:09 96 06/12/24 14:59 06/12/24 14:28 94 Room Air 06/12/24 13:51 96 Room Air 06/12/24 13:41 97 Room Air Laboratory Results 06/12/24 14:04 06/12/24 14:04 Code Status & VTE Plan Code Status Full code PG Care Time/CCT Total # of Minutes Spent Total Time Spent with Patient: Total time spent is greater than 50% in coordination of care (as documented) at patient's floor/unit and/or counseling patient: Coding Level of Care Code 23064 INT INP/OBS CARE 3/75MIN Diagnoses Unstable angina I20.0 Chronic kidney disease, stage III (moderate) N18.30 Type 2 diabetes mellitus E11.9 Hyperlipidemia E78.5 Primary hypertension I10 Hypertension type: primary hypertension (5) Hypertension Hypertension type: primary hypertension Qualified Code(s): I10 - Essential (primary) hypertension
--- NOTE | 2024-06-12 18:00 | Emergency Department Note ---
History of Present Illness General Chief Complaint: Chest Pain Stated Complaint: CHEST PAIN DOC REFERRAL Time Seen by Provider: 06/12/24 13:42 History of Present Illness Provider Complaint: + abnormal lab Description of abnormal result: Abnormal stress test Associated symptoms: no fever, no chills, no chest pain, no shortness of breath, no rash or no abdominal pain Home Medications Medication Instructions Recorded Confirmed Type multivitamin with minerals 1 tab PO QDL 09/13/18 06/12/24 History psyllium husk 3.4 gram/5.4 gram 3 tbsp PO HS 05/20/22 06/12/24 History oral powder (Metamucil) celecoxib 200 mg capsule (Celebrex) 200 mg PO HS 01/19/23 06/12/24 History chlorthalidone 25 mg tablet 25 mg PO QAM 02/02/24 06/12/24 History guanfacine 2 mg tablet 2 mg PO HS #90 tabs 04/09/24 06/12/24 Rx fenofibrate nanocrystallized 145 145 mg PO DAILY #30 tabs 04/24/24 06/12/24 Rx mg tablet amlodipine 10 mg-olmesartan 40 mg 1 tab PO HS #90 tabs 05/07/24 06/12/24 Rx tablet pantoprazole 40 mg tablet,delayed 40 mg PO HS #90 tabs 05/21/24 06/12/24 Rx release eplerenone 50 mg tablet 50 mg PO BID 90 days #180 tabs 06/07/24 06/12/24 Rx aspirin 81 mg tablet,delayed 81 mg PO DAILY 06/12/24 06/12/24 History release Allergies Allergy/AdvReac Type Severity Reaction Status Date / Time No Known Allergies Allergy Verified 06/12/24 12:45 Past Med/Surg History Problem List (Updated 06/12/24 @ 18:00 by Jose M Stone MD) Hyperlipidemia Chronic kidney disease, stage III (moderate) Unstable angina Acute kidney injury Abnormal stress test (Acute) Chest pain Type 2 diabetes mellitus Chronic anterior anal fissure Family history of colon polyps, unspecified Obstructive sleep apnea Bradycardia Umbilical hernia, incarcerated ADD (attention deficit disorder) BPH (benign prostatic hyperplasia) Primary osteoarthritis of left knee Leukocytosis Knee pain, right (Acute) Erectile dysfunction Nocturia Acute blood loss anemia DVT prophylaxis Neurogenic claudication due to lumbar spinal stenosis Chronic back pain Chronic radicular low back pain Lower urinary tract symptoms (LUTS) Nephrolithiasis Hemorrhoids Rupture of anterior cruciate ligament of left knee (Acute) Hypertension (Acute) Hyperlipidemia (Acute) Hearing difficulty (Acute) 70% hearing to right ear - s/p fall No hearing aids GERD without esophagitis Well controlled and stable Elevated hemoglobin A1c (Acute) Shoulder pain, left (Acute) Leg pain, left (Acute) Knee pain, bilateral (Acute) Medical History Sepsis Hypertension Hyperlipidemia GERD (gastroesophageal reflux disease) BPH (benign prostatic hyperplasia) Hx of melanoma of skin S/p removal History of kidney stones No recent issues Infection of total right knee replacement hx--S/p I&D (07/2020) (had infection to right knee- prior Right TKA (2012)) Follows with I&D with [facility] CAD (coronary artery disease) "Minor" CAD per 2015 cardiac cath Degenerative disc disease Surgical History Status post total left knee replacement History of cystoscopy Cystoscopy, bladder biopsies, bladder resection (10/13/20): MAC at [facility]. No issues per post-op anesthesia progress note. S/P PICC central line placement removed PONV (postoperative nausea and vomiting) History of lumbar fusion L4-L5 decompression/fusion History of surgery right finger surgery Status post incision and drainage Right knee I&D (08/11/20): LMA#5 at [facility]. No issues per post-op anesthesia progress note. History of right knee joint replacement S/P epidural steroid injection Hx of melanoma excision History of colonoscopy History of lithotripsy S/P tympanoplasty right History of tonsillectomy S/P left knee arthroscopy History of total knee arthroplasty Right (2012) H/O cardiac catheterization 2015- no stents H/O knee surgery right (multiple) Family History Mother Melanoma malignant Hypertension Father Cardiac disorder Myocardial infarction Hypertension Gallbladder disease Sister Graves disease Other No family history of adverse response to anesthesia Denies family history of Ovarian cancer Prostate cancer Breast cancer Colorectal cancer Social History Smoking Status: Former smoker Tobacco Type: Cigarettes Age Started Using Tobacco: 39; Age Quit Using Tobacco: 44; packs per day: 1; Cigarettes Per Day: 20; Second Hand Exposure: No; Do You Dip or Chew Tobacco: No; Tobacco Cessation Education Requested by Patient: No Hx Alcohol Use: No (X 7 years) Hx Substance Use: No Preferred Language: Senegalese Communication Ability: Effective Visual Impairment: No Limitations Hearing Ability: Hard of Hearing Pit Furnace Operator Required: No Beliefs That Will Affect Care: None marital status: Current Living Situation: Spouse current occupational status: employed 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 How many Children do You have: 0 Other Information That Helps Us Care for You: No Feels Safe at Home: Yes Safety Concerns: Feels Safe At This Time Childhood Exposure to Second-Hand Smoke: No Diet: regular caffeine: Yes during the past year weight has: remained stable Dental Care, Regularly: Yes Physical Activity Frequency: Daily Seatbelt Use: always Sunscreen Use: Yes Assistive Devices: None Physical Exam 2 Vital Signs: Vital Signs - 24 hr 06/12/24 13:41 06/12/24 13:51 06/12/24 14:28 Temperature 36.9 C Temperature Source Temporal Artery Sc an Pulse Rate 71 50 L Pulse Rate [Apical ] 63 Pulse Rate from Sp O2 Sensor Pulse Rhythm [Apic al] Regular Pulse Strength [Ap ical] Normal Respiratory Rate 18 24 15 Respiratory Effort / Characteristics Non-Labored Sponta neous Non-Labored Respiratory Depth Normal Normal Respiratory Patter n Regular Regular Blood Pressure 194/83 H Blood Pressure [Ri ght Arm] 169/100 H Blood Pressure Kailey n 120 Blood Pressure Kailey n [Right Arm] 123 Blood Pressure Pos ition [Right Arm] Lying Pulse Oximetry 97 96 94 Oxygen Delivery Me thod Room Air Room Air Room Air Sepsis Recent Feve r Within 48 Hours No Sepsis New/Unexpla ined Change in Men gopal Status N/A Sepsis Action Take n by Nursing No Action Required 06/12/24 14:59 06/12/24 15:09 Temperature Temperature Source Pulse Rate 48 L 58 L Pulse Rate [Apical ] Pulse Rate from Sp O2 Sensor 56 L Pulse Rhythm [Apic al] Pulse Strength [Ap ical] Respiratory Rate 18 Respiratory Effort / Characteristics Respiratory Depth Respiratory Patter n Blood Pressure 139/79 Blood Pressure [Ri ght Arm] Blood Pressure Kailey n 99 Blood Pressure Kailey n [Right Arm] Blood Pressure Pos ition [Right Arm] Pulse Oximetry 96 Oxygen Delivery Me thod Sepsis Recent Feve r Within 48 Hours Sepsis New/Unexpla ined Change in Men gopal Status Sepsis Action Take n by Nursing Physical Exam: Physical Exam GENERAL: oriented to person, place, and time. appears well-developed and well- nourished. HENT: Exam performed. - Head: Normocephalic and atraumatic. EYES: Conjunctivae and EOM are normal. Right eye exhibits no discharge. Left eye exhibits no discharge. No scleral icterus. NECK: Normal range of motion. Neck supple. No JVD present. CV: Normal rate, regular rhythm, normal heart sounds and intact distal pulses. There is no peripheral edema. Palpable radial pulses bue. PULM/CHEST: Effort normal and breath sounds normal. No respiratory distress. No stridor. no wheezes. no rales. ABD: The abdomen is soft. There is no tenderness. NEURO: Motor and sensation grossly intact. SKIN: Skin is warm and dry. He is not diaphoretic. PSYCH: normal mood and affect. Behavior is normal. Judgment and thought content normal. Course Course 1342: The patient was evaluated in room C6. A complete history and physical exam was performed Cardiac monitoring: An order was placed for continuous cardiac monitoring. The monitor shows a rate of 50 with sinus rhythm interpreted by ny 1523: Vital signs stable. Labs and imaging unremarkable. Dr. Calvin came to bedside and stated he would take the patient to the [facility]. Dr. Serra will admit the patient. Administered Medications Discontinued Medications Aspirin (Aspirin Chew 324 Mg) 324 mg PO NOW STA Stop: 06/12/24 13:43 Last Admin: 06/12/24 13:55 Dose: 324 mg Documented By: KINJAL Clopidogrel Bisulfate (Clopidogrel Bisulfate 300 Mg Tab) Confirm Administered Dose 600 mg .ROUTE .STK-MED ONE Stop: 06/12/24 16:37 Last Admin: 06/12/24 16:43 Dose: 600 mg Documented By: MARCO Fentanyl Citrate (Fentanyl Citrate Pf 100 Mcg/2 Ml Vial) Confirm Administered Dose 100 mcg .ROUTE .STK-MED ONE Stop: 06/12/24 15:21 Last Admin: 06/12/24 16:36 Dose: 125 mcg Documented By: MARCO Fentanyl Citrate (Fentanyl Citrate Pf 100 Mcg/2 Ml Vial) Confirm Administered Dose 100 mcg .ROUTE .STK-MED ONE Stop: 06/12/24 16:19 Last Admin: 06/12/24 16:42 Dose: Not Given Documented By: MARCO Heparin Sodium (Porcine) (Heparin (Porcine) 1000 Unit/Ml 10 Ml ([facility] Use Only)) Confirm Administered Dose 10,000 units .ROUTE .STK-MED ONE Stop: 06/12/24 15:21 Last Admin: 06/12/24 16:36 Dose: 12,000 units Documented By: MARCO Heparin Sodium (Porcine) (Heparin (Porcine) 1000 Unit/Ml 10 Ml ([facility] Use Only)) Confirm Administered Dose 10,000 units .ROUTE .ST-MED ONE Stop: 06/12/24 16:30 Last Admin: 06/12/24 16:42 Dose: Not Given Documented By: MARCO Heparin Sodium/Sodium Chloride (Heparin In Nss Infusion 1000 Unit/500 Ml (2 U/Ml) Bag) Confirm Administered Dose 3,000 units IV .STK-MED ONE Stop: 06/12/24 15:22 Last Admin: 06/12/24 16:37 Dose: 3,000 units Documented By: AUSTIN Iodixanol (Iodixanol (Visipaque) 320 Mg/Ml 100ml) Confirm Administered Dose 1 ml IV .ST-MED ONE Stop: 06/12/24 15:23 Last Admin: 06/12/24 16:38 Dose: 105 ml Documented By: AUSTIN Ioversol (Optiray 350) Confirm Administered Dose 1 ml .ROUTE .ST-MED ONE Stop: 06/12/24 15:23 Last Admin: 06/12/24 16:39 Dose: Not Given Documented By: MARCO Lidocaine HCl (Lidocaine 1% Local 20 Ml Vial) Confirm Administered Dose 40 ml .ROUTE .ST-MED ONE Stop: 06/12/24 15:25 Last Admin: 06/12/24 16:40 Dose: 40 ml Documented By: AUSTIN Midazolam HCl (Midazolam Hcl 1 Mg/Ml 2ml Vial) Confirm Administered Dose 2 mg .ROUTE .ST-MED ONE Stop: 06/12/24 15:21 Last Admin: 06/12/24 16:37 Dose: 4 mg Documented By: MARCO Midazolam HCl (Midazolam Hcl 1 Mg/Ml 2ml Vial) Confirm Administered Dose 2 mg .ROUTE .STK-MED ONE Stop: 06/12/24 16:07 Last Admin: 06/12/24 16:41 Dose: Not Given Documented By: MARCO Nicardipine HCl (Nicardipine 2,000 Mcg/20 Ml Syr) Confirm Administered Dose 2,000 mcg .ROUTE .STK-MED ONE Stop: 06/12/24 15:23 Last Admin: 06/12/24 16:39 Dose: 2,000 mcg Documented By: AUSTIN Nitroglycerin/Dextrose (Nitroglycerin/D5w 100mcg/Ml 20ml Syr) Confirm Administered Dose 2,000 mcg .ROUTE .STK-MED ONE Stop: 06/12/24 15:23 Last Admin: 06/12/24 16:39 Dose: 2,000 mcg Documented By: AUSTIN Medical Decision Making Laboratory Data Attestation: I reviewed the patient's lab results. 06/12/24 14:04 06/12/24 14:04 Lab Results 06/12/24 Range/Units 14:04 WBC 5.28 (4.8-10.8) K/ul RBC 4.58 L (4.70-6.10) M/uL Hgb 13.9 L (14.0-18.0) g/dl Hct 39.8 L (42.0-52.0) % MCV 86.9 (80.0-100.0) fL MCH 30.3 (25.0-34.0) pg MCHC 34.9 (32.0-36.0) g/dL RDW Std Deviation 38.6 (36.4-46.3) fL RDW Coeff of Chencho 12.2 (11.5-14.5) % Plt Count 182 (130-400) K/uL MPV 10.1 (9.4-12.4) fL Immature Gran % (Auto) 0.4 % Neut % (Auto) 67.2 % Lymph % (Auto) 21.6 % [place] % (Auto) 7.2 % Eos % (Auto) 2.8 % Baso % (Auto) 0.8 % Neut # (Auto) 3.55 (1.40-6.50) K/uL Lymph # (Auto) 1.14 L (1.20-3.40) K/uL [place] # (Auto) 0.38 (0.11-0.59) K/uL Eos # (Auto) 0.15 (0.00-0.50) K/uL Baso # (Auto) 0.04 (0.00-0.20) K/uL Immature Gran # (Auto) 0.02 (0.01-0.20) K/uL PT 11.8 (9.0-12.0) Seconds INR 1.1 (0.9-1.1) APTT 27 (21-31) Seconds PTT Ratio 1.0 Sodium 141 (136-145) mmol/L Potassium 3.6 (3.5-5.1) mmol/L Chloride 109 H (98-107) mmol/L Carbon Dioxide 26 (21-32) mmol/L Anion Gap 6 (3-11) BUN 34 H (6-23) mg/dl Creatinine 1.48 H (0.6-1.4) mg/dl Est Cr Clr Drug Dosing 56.8 ml/min eGFR 53.16 BUN/Creatinine Ratio 23.0 H (10-20) Glucose 109 H (70-99(Fasting)) mg/dl Calcium 8.9 (8.6-10.3) mg/dl Troponin I High Sens 3.3 (0-20) pg/ml Lipase 21 (11-82) U/L Imaging Data Attestation: I personally reviewed and interpreted this imaging study as follows: My Impression: Chest x-ray negative. Airway clear. No pneumothorax. No consolidation. No cardiomegaly or cephalization.. No free air under the diaphragm. No fractures of the skeletal structures. Radiologist's Impression: Chest X-Ray 06/12/24 13:42 XR chest 1V portable CLINICAL HISTORY: Chest pain, nonspecific COMPARISON STUDY: 06/25/2021 FINDINGS: Heart size and pulmonary vasculature are normal. No effusion, consolidation, or pneumothorax. IMPRESSION: No acute findings. ACT 112: Negative or not required by law. Electronically signed by: Danis Blair M.D. 06/12/2024 2:39 PM ECG Data Attestation: I personally reviewed and interpreted this ECG as follows: Rate (beats per minute): 52 Rhythm: sinus bradycardia Findings: no ST depression, no ST elevation or no prolonged QT MDM Narrative Vital signs stable. Labs and imaging unremarkable. Dr. Calvin came to bedside and stated he would take the patient to the [facility]. Dr. Serra will admit the patient. Impression & Plan Abnormal stress test Discharge Plan Visit Data Chief Complaint: Chest Pain Stated Complaint: CHEST PAIN DOC REFERRAL ED Provider: Jose M Stone Discharge Problem: Abnormal stress test Patient Disposition: Admitted As Inpatient Discharge Instructions Interventions: ED Discharge Assessment Last Done: 06/12/24 15:37
[2024-06-12] MEDS: amLODIPine BESYLATE 5 MG TAB PO SCH (20:26)
[2024-06-12] MEDS: LOSARTAN POTASSIUM 50 MG TAB PO SCH (20:27)
[2024-06-12] MEDS: PANTOprazole 40 MG TAB PO SCH (20:27)
[2024-06-12] MEDS ORDERED: NON-FORMULARY MEDICATION (Amlodipine-Olmesartan 10-40 mg tablet) PO SCH (21:00)
[2024-06-13 06:08] LABS: Basophils # (auto) 0.04 K/uL (0.00-0.20); Basophils % (auto) 0.7 %; Eosinophils # (auto) 0.22 K/uL (0.00-0.50); Eosinophils % (auto) 3.9 %; Hematocrit (blood only) 39.2 % (42.0-52.0); Hemoglobin 13.6 g/dl (14.0-18.0); Immature Granulocytes # (auto) 0.03 K/uL (0.01-0.20); Immature Granulocytes % (auto) 0.5 %; Lymphocytes # (auto) 0.98 K/uL (1.20-3.40); Lymphocytes % (auto) 17.4 %; Mean Corpuscular Hemoglobin 30.3 pg (25.0-34.0); Mean Corpuscular Hgb Conc 34.7 g/dL (32.0-36.0); Mean Corpuscular Volume 87.3 fL (80.0-100.0); Mean Platelet Volume 9.6 fL (9.4-12.4); Monocytes # (auto) 0.39 K/uL (0.11-0.59); Monocytes % (auto) 6.9 %; Neutrophils # (auto) 3.97 K/uL (1.40-6.50); Neutrophils % (auto) 70.6 %; Platelet Count 163 K/uL (130-400); RDW Coefficient of Variation 12.2 % (11.5-14.5); RDW Standard Deviation 39.1 fL (36.4-46.3); Red Blood Count 4.49 M/uL (4.70-6.10); White Blood Count 5.63 K/ul (4.8-10.8)
[2024-06-13 06:29] LABS: BUN Creatinine Ratio 18.8 (10-20); Calcium 8.9 mg/dl (8.6-10.3); Chol HDL Ratio 2.9 (0-5); Creatinine Clr Calc Pharmacy 60.9 ml/min; Potassium 3.7 mmol/L (3.5-5.1)
[2024-06-13 08:10] VITALS: BP 164/95; PULSE 53; RESP 19; TEMP 97.9; O2SAT 97
[2024-06-13] MEDS: CLOPIDOGREL BISULFATE 75 MG TAB PO SCH (09:23)
[2024-06-13] MEDS: ROSUVASTATIN CALCIUM 20 MG TAB PO SCH (09:23)
[2024-06-13] MEDS: ASPIRIN 81 MG ECTAB PO SCH (09:23)
--- NOTE | 2024-06-13 10:17 | Electrocardiogram Report ---
Test Reason : Blood Pressure : */* mmHG Vent. Rate : 52 BPM Atrial Rate : 52 BPM P-R Int : 164 ms QRS Dur : 110 ms QT Int : 424 ms P-R-T Axes : 0 -23 26 degrees QTcB Int : 394 ms Sinus bradycardia Poor R wave progression, consider anterior AK vs. lead placement vs. LVH Abnormal ECG When compared with ECG of 28-Mar-2023 15:03, (unconfirmed) Premature ventricular complexes are no longer Present Confirmed by John Yoo ([id number]) on 06/13/2024 10:16:54 AM Referred By: Tan Dent Confirmed By: John Yoo
--- NOTE | 2024-06-13 10:46 | Cardiology Progress Note ---
Date of Service June 13, 2024 Assessment & Plan (1) Unstable angina: Plan: Post PCI to OM2 yesterday with single VENUS Chest pain free today. Hemodynamically and electrically stable overnight. Ecchymosis at access site but no apparent significant complications. From a cardiac standpoint OK with discharge this morning. -- Home on DAPT with ASA/Clopidigrel. -- Started on new high intensity statin - Rosuvastatin 20mg -- Resume prior antihypertensives. Eplerenone on hold. Will follow-up with Dr. Dent in 2 weeks. Admission and Anticipated Discharge Date Admission Date: June 12, 2024 Subjective Feeling well this morning. Had mild burning chest pain after procedure that has since gone away. Reports some discomfort at his RT wrist/forearm and around RT shoulder. No other new concerns. Telemetry reviewed -- No events Review of Systems Review of Systems: All systems reviewed & are unremarkable except as noted in HPI & below Physical Exam Physical Exam: General: Comfortable HEENT: Sclerae anicteric Lungs: Clear to auscultation bilaterally Cardiac: Regular rate and rhythm, no murmurs. Vascular: 2+ RT radial pulse, ecchymosis present. no hematoma. intact cap refill/distal sensation. Abdomen: Soft, nontender Extremities: Well perfused, no peripheral edema Neuro: Nonfocal Psych: Alert orient x3, normal affect and mood Results & Data Vital Signs (Past 12 Hours) Vital Signs Temp Pulse Pulse Resp BP Pulse Ox O2 Del Method 06/13/24 09:33 97.9 F 53 L 19 164/95 H 97 06/13/24 08:08 97.9 F 53 L 19 164/95 H 97 Room Air 06/13/24 08:05 41 L 06/13/24 03:18 98.1 F 46 L 18 157/85 H 96 Room Air 06/12/24 23:29 40 L PG Care Time/CCT Total # of Minutes Spent Total Time Spent with Patient: Total time spent is greater than 50% in coordination of care (as documented) at patient's floor/unit and/or counseling patient: Coding Level of Care Code 72317 SUB INP/OBS CARE 2/35MIN Diagnoses Unstable angina I20.0
--- NOTE | 2024-06-13 16:59 | Electrocardiogram Report ---
Test Reason : Blood Pressure : */* mmHG Vent. Rate : 50 BPM Atrial Rate : 50 BPM P-R Int : 180 ms QRS Dur : 100 ms QT Int : 432 ms P-R-T Axes : 49 -3 -18 degrees QTcB Int : 393 ms Sinus bradycardia Low voltage QRS Septal infarct (cited on or before 12-Jun-2024) Abnormal ECG When compared with ECG of 12-Jun-2024 13:54, No significant change was found Confirmed by Inocencio Mack ([id number]) on 06/13/2024 4:58:59 PM Referred By: Tan Dent Confirmed By: Inocencio Mack
--- NOTE | 2024-06-15 10:40 | Discharge Summary ---
Discharge Summary Date of Service June 13, 2024 Principal Dx & Hospital Course #1 = Principal Diagnosis (1) Unstable angina: The patient underwent left heart catheterization, June 12, and was found to have a 90% obtuse marginal stenosis and drug-eluting stent was placed by Dr. Calvin. He was seen after the procedure and is medically stable. Compression dressing on the ventral aspect of the right wrist with hemostasis achieved. He was instructed on proper use of sublingual nitroglycerin as an outpatient. Current medications include amlodipine, aspirin, Plavix, losartan, pantoprazole, and rosuvastatin. will stop fenofibrate. (2) Chronic kidney disease, stage III (moderate): Monitor intake and output. \ (3) Type 2 diabetes mellitus: ADA diet. (4) Hyperlipidemia: He is currently on rosuvastatin. (5) Hypertension: He is on amlodipine and olmesartan as an outpatient. He is currently on amlodipine and losartan. Admission HPI Per Admitting Provider 64-year-old white male with a history of essential hypertension, type 2 diabetes, chronic kidney disease stage III, hyperlipidemia. He has had symptoms of angina pectoris for some time now which have progressed to the point where he is having symptoms at rest and actually had chest pain symptoms that awoke him at nighttime. He was sent to the hospital for evaluation and subsequently had emergent left heart catheterization and was found to have a 90% obtuse marginal stenosis with VENUS stent placement by Dr. Calvin. He was seen postoperatively and is alert and oriented and asymptomatic. Vital signs are stable and he is on telemetry. Current medications include amlodipine, aspirin, Plavix, losartan, pantoprazole, and rosuvastatin. He was instructed on proper use of sublingual nitroglycerin should his chest discomfort symptoms recur after discharge. He was instructed to let nursing staff know immediately if any chest discomfort or symptoms recur while hospitalized. Discharge Exam Constitutional WD/WN, vitals as above Neck trachea midline, no thyromegaly Respiratory normal respiratory effort, lungs clear to auscultation Cardiovascular RRR, no murmur, no edema Discharge Plan Discharge Items Patient Disposition: Home - Self-Care Reason For Visit: UNSTABLE ANGINA Discharge Diagnosis: unstable angina Activity: Resume your previous activity Non-emergency contact: Primary Care Provider Call non-emergency contact if: you have any medication questions Follow-up/Referrals: Dominik Concepcion, [Primary Care Provider] - 06/15/24 9:20 am (Hospital follow up on June 15 at 9:20 am.) Diet: Carb Consistent or DM2 and Heart Healthy Addtl Attending Provider Instructions: Please continue aspirin and plavix every day. This will help keep your arteires and stents open. Will recommend starting Crestor for cholesterol. For now hold the fenofibrate until being seen by your PCP as the 2 may be a bit much. As you are now on aspirin and plavix, will recommend holding celecoxib for risk of bleeding and worsening coronary artery disease. Home Care: * Take your medications exactly as directed. Don't skip doses. * Remember that recovery after a heart attack takes time. Plan to rest for at lease 4-8 weeks while you recover. Then return to normal activity when your doctor says it's okay. * Ask your doctor about joining a heart rehabilitation program. * Tell your doctor if you are feeling depressed. Feelings of sadness are common after a heart attack, but it is important that you speak to someone if you are feeling overwhelmed by these feelings. * If you are having chest pain, call 911 for an ambulance. Do NOT drive yourself to the hospital. * Ask your family members to learn CPR. * Learn to take your own blood pressure and pulse. Keep a record of your results. Ask your doctor when you should seek emergency medical attention. He or she will tell you which blood pressure reading is dangerous. Lifestyle Changes: * Maintain a healthy weight. Get help to lose any extra pounds. * Cut back on salt. * Limit canned, dried, packaged, and fast foods. * Don't add salt to your food. * Season foods with herbs instead of salt when you cook. * Break the smoking habit. Enroll in a stop-smoking program to improve your chances of success. * Limit fatty foods. * Ask your doctor about having your lipid levels checked regularly. * Build up your activity according to your doctor's recommendation. * Ask your doctor when it's okay to resume sexual activity. * Tell your doctor about any erectile dysfunction (ED) medication you are taking. Some ED medications are not safe if you take certain heart medications. * Try to manage stress. Follow Up: It is important for you to keep your follow up appointments with your medical provider. Pending Studies at Discharge: No Stand-Alone Forms: My [facility], Work/School Release, Smoking Cessation Medications and DC Order Prescriptions: New clopidogrel 75 mg Tablet 75 mg PO QAM Qty: 30 0RF rosuvastatin 20 mg Tablet 20 mg PO QAM Qty: 30 0RF nitroglycerin 0.4 mg tablet, sublingual 0.4 mg sublingual Q5M Qty: 7 0RF Continued amlodipine-olmesartan 10-40 mg tablet 1 tab PO HS Qty: 90 4RF pantoprazole 40 mg tablet,delayed release (DR/EC) 40 mg PO HS Qty: 90 3RF Rx Instructions: TAKE 1 TABLET BY MOUTH EVERYDAY AT BEDTIME eplerenone 50 mg tablet 50 mg PO BID 90 Days Qty: 180 1RF multivitamin with minerals tablet 1 tab PO QDL guanfacine 2 mg tablet 2 mg PO HS Qty: 90 3RF Metamucil 3.4 gram/5.4 gram powder 3 tbsp PO HS chlorthalidone 25 mg tablet 25 mg PO QAM aspirin 81 mg Tablet,Delayed Release (Dr/Ec) 81 mg PO DAILY Held fenofibrate nanocrystallized 145 mg tablet 145 mg PO DAILY Qty: 30 2RF Hold Instructions: Provider's Order until cleared by PCP celecoxib [Celebrex] 200 mg capsule 200 mg PO HS Hold Instructions: Provider's Order until cleared by PCP Discharge Orders: Discharge Order (Routine); Ordered 06/13/24 Ordered By: Chris Stafford Admission Data Admit Date/Time: 06/12/24 15:36 Attending Provider: Chris Stafford Admit Provider: Di Luo Primary Care Provider: Dominik Concepcion Other Providers: Tan Calvin; Kenroy Capone Other Interventions: Discharge Summary Assessment (RN) Last Done: 06/13/24 09:33 Hospital Stay Data Consultations 06/12/24 15:14 ED Decision to Admit Stat Procedures Performed Operation Date: 06/12/24 15:30 Actual Procedures p Cineradiography w/Routine Exam - Tan Calvin MD p Cath, Left with Cors and Vent - Tan Calvin MD s Drug Eluting Stent SGl Vessel - Tan Calvin MD Diagnostic Imagining Performed 06/12/24 15:23 CL Cath Imgs for PACS use only Stat 06/12/24 15:24 CL Cath Imgs for PACS use only Stat Pending Results Patient Have Any Pending Studies at Discharge: No Discharge Instructions Given to Patient (Per Discharging Provider) Please continue aspirin and plavix every day. This will help keep your arteires and stents open. Will recommend starting Crestor for cholesterol. For now hold the fenofibrate until being seen by your PCP as the 2 may be a bit much. As you are now on aspirin and plavix, will recommend holding celecoxib for risk of bleeding and worsening coronary artery disease. Home Care: * Take your medications exactly as directed. Don't skip doses. * Remember that recovery after a heart attack takes time. Plan to rest for at lease 4-8 weeks while you recover. Then return to normal activity when your doctor says it's okay. * Ask your doctor about joining a heart rehabilitation program. * Tell your doctor if you are feeling depressed. Feelings of sadness are common after a heart attack, but it is important that you speak to someone if you are feeling overwhelmed by these feelings. * If you are having chest pain, call 911 for an ambulance. Do NOT drive yourself to the hospital. * Ask your family members to learn CPR. * Learn to take your own blood pressure and pulse. Keep a record of your results. Ask your doctor when you should seek emergency medical attention. He or she will tell you which blood pressure reading is dangerous. Lifestyle Changes: * Maintain a healthy weight. Get help to lose any extra pounds. * Cut back on salt. * Limit canned, dried, packaged, and fast foods. * Don't add salt to your food. * Season foods with herbs instead of salt when you cook. * Break the smoking habit. Enroll in a stop-smoking program to improve your chances of success. * Limit fatty foods. * Ask your doctor about having your lipid levels checked regularly. * Build up your activity according to your doctor's recommendation. * Ask your doctor when it's okay to resume sexual activity. * Tell your doctor about any erectile dysfunction (ED) medication you are taking. Some ED medications are not safe if you take certain heart medications. * Try to manage stress. Follow Up: It is important for you to keep your follow up appointments with your medical provider. Total Time Total Time Spent Total Time Spent (In Minutes): 32 Coding Level of Care Code 83442 INP/OBS DISCH >30 MIN Diagnoses Unstable angina I20.0 Chronic kidney disease, stage III (moderate) N18.30 Type 2 diabetes mellitus E11.9 Hyperlipidemia E78.5 Primary hypertension I10 Hypertension type: primary hypertension
== END 2024-06-13 11:44 | disposition home or self-care (01) | DRG 322 ==
LOC: ED 13:39 → CC 15:35 → 2E 15:36 → SUATTDRO 15:36 → CC 15:37
DX: I25.110 Atherosclerotic heart disease of native coronary artery with unstable angina pectoris; I12.9 Hypertensive chronic kidney disease with stage 1 through stage 4 chronic kidney disease, or unspecified chronic kidney disease; E78.5 Hyperlipidemia, unspecified; E11.22 Type 2 diabetes mellitus with diabetic chronic kidney disease; Z79.899 Other long term (current) drug therapy; N18.30 Chronic kidney disease, stage 3 unspecified; K21.9 Gastro-esophageal reflux disease without esophagitis